=== PATIENT | female | born 1935 | race Caucasian/White ===

== ENCOUNTER → 2016-11-03 | Outpatient (CLI) | payer OTHER, MEDICARE ==
[~2016-11-03] MED LIST: AMLO-110 PO; APR50 PO; ASPEC81 PO; CARV12.52 PO; CEPH500C PO; CLC100 PO; CRG3125 PO; CRG625 PO; ERGO500037 PO; GFNSR600 PO; HYDR-4717 PO; HYDR25TA5 PO; HYDR50TA3 PO; LOSA1TAB38 PO; MRLP17X PO; NRV5 PO; POLY335019 PO; POTA10CA28 PO; POTA10TA33 PO; SIMV20TA2 PO; VLTG EXT; WARF5TAB7 PO; WARF5TAB90 PO; ZTHM250 PO
[2016-11-03 17:49] LABS: BLOOD UREA NITROGEN 18 mg/dl (7-18); BUN/CREATININE RATIO 19.8 (10-20); CALCIUM 8.6 mg/dl (8.5-10.1); CARBON DIOXIDE 28 mmol/L (21-32); CHLORIDE 104 mmol/L (98-107); CREATININE 0.89 mg/dl (0.60-1.20); GLUCOSE 98 mg/dl (70-99); POTASSIUM 3.9 mmol/L (3.5-5.1); SODIUM 141 mmol/L (136-145)
== END | disposition home or self-care (01) ==
LOC: C.LABPVFM 07:24
PROVIDERS: ATTEND Internal Medicine Cardiovascular Disease
DX: I10 Essential (primary) hypertension (principal)

== ENCOUNTER 2016-11-10 15:01 | Inpatient (IN) | payer OTHER, MEDICARE ==
[~2016-11-10] VITALS: Ht 162.6 cm; Wt 94.4 kg
[~2016-11-10 15:01] MED LIST changes: -AMLO-110 PO; -APR50 PO; -ASPEC81 PO; -CARV12.52 PO; -CEPH500C PO; -CRG3125 PO; -CRG625 PO; -ERGO500037 PO; -GFNSR600 PO; -HYDR25TA5 PO; -MRLP17X PO; -NRV5 PO; -POLY335019 PO; -POTA10TA33 PO; -WARF5TAB7 PO; -ZTHM250 PO
[2016-11-10] MEDS ORDERED: ASPIRIN 81 MG CHEW PO STA (17:27)
--- NOTE | 2016-11-10 17:38 | EMERGENCY ROOM VISIT NOTE ---
History First contact with patient: 17:27 Chief Complaint: CONGESTION Stated Complaint: COLD, TIGHT CHEST History of Present Illness The patient is a 81 year old female who presents to the Emergency Room with complaints of cough congestion and chest pain. She is accompanied by her daughter who also provides parts of the history. Patients symptoms started 2 days ago. She has been having a on/off dry cough. She has also had nasal congestion with discharge. Her most concerning symptom is chest pain. She notes a vague 2/10 discomfort centrally in her chest that radiates between the shoulder blades and into her left arm. The pain is not associated with exertion and she notes that it actually worsens when she is sitting quietly at rest. The pain is not positional. She has long-standing shortness of breath that has not changed recently. She denies feeling wheezy. She has not had fevers, chills or sweats. She has been urinating per baseline. She has ongoing issues with constipation but this has not changed recently. Her appetite has been poor for the past day. 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 She has HTN and hypercholesterolemia but denies any history of [place]. Review of Systems A 10 point review of systems was negative unless stated above. Past Medical/Surgical History Medical Problems: (1) Arthritis (2) Atrial fibrillation (3) Benign hypertension (4) Bronchitis (5) Dilation and curettage (6) Heart disease (7) Melanoma (8) Symptomatic bradycardia (9) Weakness Surgical Problems: (1) H/O lumpectomy (2) H/O: hysterectomy Family History Cancer Gallbladder disease Heart disease Hypertension Kidney disease Kidney stones Social History Smoking Status: Never Smoker Smokeless Tobacco Use: No Alcohol Use: none Drug Use: none Marital Status: Housing Status: lives with family (daughter) Occupation Status: retired Current/Historical Medications Scheduled Diclofenac Sod (Voltaren), 1 APPLN EXT QID Docusate Sodium (Docusate Sodium), 1 CAP PO BID Hydralazine Hcl (Apresoline), 50 MG PO TID Hydrochlorothiazide (Hctz), 25 MG PO QAM Losartan Potassium (Cozaar), 100 MG PO QAM Potassium Chloride (Micro-K Ext Rel), 10 MEQ PO NOON Simvastatin (Zocor), 20 MG PO QPM Warfarin Sodium (Coumadin), 5 MG PO HS Allergies Coded Allergies: Lisinopril (Verified Adverse Reaction, Intermediate, COUGH, 05/19/16) Oxycodone (Verified Adverse Reaction, Unknown, DIZZINESS Lightheaded, ) Physical Exam Vital Signs Date Time Temp Pulse Resp B/P Pulse Ox O2 Delivery O2 Flow Rate FiO2 11/10/16 16:50 65 11/10/16 16:46 96 Room Air 11/10/16 16:46 73 20 209/101 95 Room Air 11/10/16 15:07 93 Room Air 11/10/16 15:05 36.6 75 18 188/85 93 Room Air Physical Exam Constitutional: Vital signs as above were reviewed. Eyes: Pupils equal, round, and reactive to light. Extraocular muscles are intact. No proptosis. No photophobia. ENT: Mucous membranes are moist. Oropharynx is clear. No sinus tenderness. TMs are clear bilaterally. Cardiovascular: Heart with a regular rate and rhythm. Pulses are palpable and symmetric in all 4 extremities. No pedal edema appreciated. JVD 3 cm; accentuated with hepatojugular reflex Palpation of the chest reveals bilateral pectoral tenderness; this tenderness is different Respiratory: Lungs clear to auscultation bilaterally. No wheezes, rales, or rhonchi appreciated. No accessory muscle use. No retractions. No increased work of breathing. Bilateral expiratory wheezing GI: Abdomen soft, nontender, nondistended. Normal active bowel sounds. No abdominal hernias appreciated. No rebound. No guarding. : No CVA tenderness appreciated. Musculoskeletal: No midline cervical or vertebral tenderness. No gross deformities. No bony tenderness. No calf swelling or tenderness. Left calf tenderness, this is a baseline symptom Integumentary: Warm, dry, no rashes appreciated. Chronic lymphedema of the left arm Neurological: Patient awake, alert, and oriented x 3. Cranial nerves two through 12 grossly intact. Motor 5 out of 5 strength bilateral upper and lower extremities. Lymph: No cervical lymphadenopathy appreciated. Medical Decision & Procedures ER Provider Diagnostic Interpretation: [~ rep ct add3]] CHEST ONE VIEW PORTABLE CLINICAL HISTORY: chest pain, cough COMPARISON STUDY: 05/23/2016 FINDINGS: The heart remains enlarged. There are surgical clips within the left axillary region. There is a right subclavian single chamber central venous pacemaker present. There is no overt failure. There is no lobar consolidation. There are increased right basilar markings, likely atelectatic, although an mild inflammatory process could appear similar.[ IMPRESSION: 1. Cardiomegaly 2. No evidence of overt failure 3. Increased right basal markings, likely atelectatic although a mild inflammatory process could appear similar Electronically signed by: Abdon Cortés M.D. 11/10/2016 5:45 PM Dictated Date/Time: 11/10/2016 5:43 PM Laboratory Results 11/10/16 18:20 Red Blood Count 4.70, Mean Corpuscular Volume 88.9, Mean Corpuscular Hemoglobin 30.6, Mean Corpuscular Hemoglobin Concent 34.4, Mean Platelet Volume 10.8, Neutrophils (%) (Auto) 61.4, Lymphocytes (%) (Auto) 16.6, Monocytes (%) (Auto) 19.5, Eosinophils (%) (Auto) 1.8, Basophils (%) (Auto) 0.5, Neutrophils # (Auto ) 3.80, Lymphocytes # (Auto) 1.03, Monocytes # (Auto) 1.21, Eosinophils # (Auto ) 0.11, Basophils # (Auto) 0.03 Test 11/10/16 17:12 11/10/16 17:25 11/10/16 18:20 11/10/16 18:43 Creatine Kinase MB Ratio (0-3.0) Influenza Type A Antigen Neg for Influ A (NEG) Influenza Type B Antigen Neg for Influ B (NEG) White Blood Count 6.19 K/uL (4.8-10.8) Red Blood Count 4.70 M/uL (4.2-5.4) Hemoglobin 14.4 g/dL (12.0-16.0) Hematocrit 41.8 % (37-47) Mean Corpuscular Volume 88.9 fL (80-100) Mean Corpuscular Hemoglobin 30.6 pg (25-34) Mean Corpuscular Hemoglobin Concent 34.4 g/dl (32-36) Platelet Count 189 K/uL (130-400) Mean Platelet Volume 10.8 fL (7.4-10.4) Neutrophils (%) (Auto) 61.4 % Lymphocytes (%) (Auto) 16.6 % Monocytes (%) (Auto) 19.5 % Eosinophils (%) (Auto) 1.8 % Basophils (%) (Auto) 0.5 % Neutrophils # (Auto) 3.80 K/uL (1.4-6.5) Lymphocytes # (Auto) 1.03 K/uL (1.2-3.4) Monocytes # (Auto) 1.21 K/uL (0.11-0.59) Eosinophils # (Auto) 0.11 K/uL (0-0.5) Basophils # (Auto) 0.03 K/uL (0-0.2) RDW Standard Deviation 44.6 fL (36.4-46.3) RDW Coefficient of Variation 13.6 % (11.5-14.5) Immature Granulocyte % (Auto) 0.2 % Immature Granulocyte # (Auto) 0.01 K/uL (0.00-0.02) Medications Administered Medications (Trade) Dose Ordered Sig/Braulio Route Start Time Stop Time Status Last Admin Dose Admin Aspirin (Aspirin Chew) 324 mg NOW STAT PO 11/10/16 17:27 11/10/16 17:28 DC 11/10/16 18:15 324 MG Albuterol/ Ipratropium (Duoneb) 3 ml NOW STAT INH 11/10/16 18:03 11/10/16 18:04 DC 11/10/16 18:15 3 ML ECG Change: Undetermined rhythm ST & T wave abnormality, consider inferior ischemia ST & T wave abnormality, consider anterolateral ischemia Abnormal ECG When compared with ECG of 22-MAY-2016 16:30, Current undetermined rhythm precludes rhythm comparison, needs review ED Course 17:00 - Patient evaluated Orders; CBC, BMP, troponin, CK, CKMB, CXR 17:25 - EKG reviewed; new anterolateral T wave inversion noted ASA 324 chew PO orders 17:45 - Precepted case with Dr. Bruno 18:00 - Duoneb treatment ordered by Dr. Bruno 18:15 - CXR reviewed: possible new right basilar infiltrate 18:30 - Discussed case with Dr. Bruno - Decision to admit patient for further cardiac work-up 18:45 - Case discssed with Dr. Arias, who will admit patient for further evaluation Patient re-assessed; notes no pain currently Patient signed out to hospitalist service in stable condition Cardiac enzymes still pending. Medical Decision A thorough history was obtained, physical examination performed and the EMR was reviewed. The case was reviewed multiple times over with Dr. Timothy Bruno during the patient's ED visit. Patient presents with URI symptoms but also atypical anginal symptoms. She does have risk factors for coronary artery disease including hypertension and hypercholesterolemia. Differentials for chest pain include ACS, Pericarditis/myocarditis, costochondritis, PE, Pneumothorax, Pneumonia/Pleurisy, GERD, gastritis Review of the EKG did note anterolateral T wave inversions, which were absent on EKGs obtained 6 months ago. Though cardiac enzymes are still pending, she warrants admission for cardiac rule-out and serial cardiac enzyme monitoring. CXR was also reviewed showing possible development of infiltrate at right base, possibly suggestive of PNA. She does have marked bilateral wheezing on examination, fortunately without evidence of hypoxia. She was treated with one treatment of Duoneb. Patient requires admission. Case was discussed with the hospitalist service, who will admit the patient for further evaluation. Impression Primary Impression: Atypical angina Additional Impression: Pneumonia Departure Information Dispostion Being Evaluated By Hospitalist Condition GOOD Referrals No Doctor, Assigned (PCP) Patient Instructions On License Of [facility] Problem Qualifiers
--- NOTE | 2016-11-10 17:46 | DIAGNOSTIC IMAGING REPORT ---
CHEST ONE VIEW PORTABLE CLINICAL HISTORY: chest pain, cough COMPARISON STUDY: 05/23/2016 FINDINGS: The heart remains enlarged. There are surgical clips within the left axillary region. There is a right subclavian single chamber central venous pacemaker present. There is no overt failure. There is no lobar consolidation. There are increased right basilar markings, likely atelectatic, although an mild inflammatory process could appear similar.[ IMPRESSION: 1. Cardiomegaly 2. No evidence of overt failure 3. Increased right basal markings, likely atelectatic although a mild inflammatory process could appear similar Electronically signed by: Abdon Cortés M.D. 11/10/2016 5:45 PM Dictated Date/Time: 11/10/2016 5:43 PM
[2016-11-10] MEDS ORDERED: ALBUT/IPRATROP 3MG/0.5MG NEB 3 ML VIAL INH STA (18:03)
[2016-11-10 18:36] LABS: BASO % 0.5 %; BASO ABS # 0.03 K/uL (0-0.2); COMPLETE YES; EOS % 1.8 %; HEMATOCRIT 41.8 % (37-47); IG% 0.2 %; LYMPH % 16.6 %; LYMPH ABS # 1.03 K/uL (1.2-3.4); MEAN CELL VOLUME 88.9 fL (80-100); MEAN CORPUSCULAR HEMOGLOBIN 30.6 pg (25-34); MEAN CORPUSCULAR HGB CONC 34.4 g/dl (32-36); MEAN PLATELET VOLUME 10.8 fL (7.4-10.4); MONO % 19.5 %; NEUT % 61.4 %; PLATELET COUNT 189 K/uL (130-400); WHITE BLOOD COUNT 6.19 K/uL (4.8-10.8)
[2016-11-10] MEDS ORDERED: NITROGLYCERIN 0.4 MG SL PER TAB CHARGE SL PRN (19:00)
[2016-11-10] MEDS ORDERED: ONDANSETRON INJ 2 MG/ML 2 ML VIAL IV PRN (19:00)
[2016-11-10] MEDS ORDERED: ACETAMINOPHEN 325 MG TAB PO PRN (19:00)
[2016-11-10] MEDS ORDERED: CRG3125 PO (19:02)
[2016-11-10 19:39] LABS: ALT/SGPT 18 U/L (12-78); AST/SGOT 14 U/L (15-37); BLOOD UREA NITROGEN 13 mg/dl (7-18); BUN/CREATININE RATIO 16.5 (10-20); CALCIUM 8.7 mg/dl (8.5-10.1); CARBON DIOXIDE 24 mmol/L (21-32); CHLORIDE 102 mmol/L (98-107); CREATININE 0.77 mg/dl (0.60-1.20); GLUCOSE 95 mg/dl (70-99); SODIUM 137 mmol/L (136-145)
[2016-11-10 19:44] LABS: ALKALINE PHOSPHATASE 66 U/L (45-117); CKMB/CK RATIO 2.4 (0-3.0)
[2016-11-10 19:57] VITALS: O2SAT 95
[2016-11-10] MEDS ORDERED: HydrALAZINE HCL 20 MG/ML VIAL IV. PRN (20:00)
[2016-11-10 20:15] LABS: INR 2.7 (0.9-1.1); PARTIAL THROMBOPLASTIN RATIO 1.6; PROTHROMBIN TIME (PATIENT) 30.3 SECONDS (9.0-12.0)
[2016-11-10] MEDS ORDERED: OPTIRAY 320 IV PRN (20:15)
[2016-11-10] MEDS ORDERED: HYDR25TA5 PO (20:18)
[2016-11-10] MEDS ORDERED: WARF5TAB7 PO (20:18)
--- NOTE | 2016-11-10 20:29 | EMERGENCY ROOM VISIT NOTE ---
History Report prepared by Luli: Mindy Ross Under the Supervision of: Dr. Timothy Bruno M.D. First contact with patient: 16:39 Chief Complaint: CONGESTION Stated Complaint: COLD, TIGHT CHEST History of Present Illness The patient is a 81 year old female who presents to the Emergency Room with complaints of intermittent mid chest pain over the past month. She said that sometimes it feels heavy and other times it is an ache. It is typically a 2/10 in severity and radiates into her left arm and shoulder blades. She does not notice any increased pain with exertion. The patient also complains of some cold symptoms over the past 2 days including a nonproductive cough and nasal congestion. She has had a poor appetite. The patient has a history of hypercholesterolemia, hypertension, a-fib and tachy deysi syndrome. She had a pacemaker placed this past May. She does not have a history of a heart attack or emphysema. She has never been a smoker. Denies fever or other complaints. Source of History: patient Onset: a month ago Position: chest (mid chest) Symptom Intensity: 2/10 Quality: ache, other (heavy) Timing: intermittent Associated Symptoms: + cough, No fevers Note: Other symptoms: nasal congestion Review of Systems See HPI for pertinent positives & negatives. A total of 10 systems reviewed and were otherwise negative. Past Medical & Surgical Medical Problems: (1) Arthritis (2) Atrial fibrillation (3) Benign hypertension (4) Bronchitis (5) Cardiac ischemia (6) Dilation and curettage (7) Heart disease (8) Melanoma (9) Symptomatic bradycardia (10) Weakness Surgical Problems: (1) H/O lumpectomy (2) H/O: hysterectomy Family History Cancer Gallbladder disease Heart disease Hypertension Kidney disease Kidney stones Social History Smoking Status: Never Smoker Smokeless Tobacco Use: No Alcohol Use: none Drug Use: none Marital Status: Housing Status: lives with family (daughter) Occupation Status: retired Current/Historical Medications Scheduled Carvedilol (Carvedilol), 3.125 MG PO BID Docusate Sodium (Docusate Sodium), 1 CAP PO BID Hydrochlorothiazide (Hctz), 25 MG PO QAM Hydrochlorothiazide (Hydrochlorothiazide), 12.5 MG PO DAILY Losartan Potassium (Cozaar), 100 MG PO QAM Potassium Chloride (Micro-K Ext Rel), 10 MEQ PO NOON Simvastatin (Zocor), 20 MG PO QPM Warfarin Sod (Jantoven), 1.5 TAB PO DIRECTED Warfarin Sodium (Coumadin), 5 MG PO HS Allergies Coded Allergies: Lisinopril (Verified Adverse Reaction, Intermediate, COUGH, 11/10/16) Oxycodone (Verified Adverse Reaction, Unknown, DIZZINESS Lightheaded, 11/10/16) Physical Exam Vital Signs Date Time Temp Pulse Resp B/P Pulse Ox O2 Delivery O2 Flow Rate FiO2 11/10/16 19:57 75 20 186/102 95 Room Air 11/10/16 18:29 71 18 134/100 95 Room Air 11/10/16 16:50 65 11/10/16 16:46 96 Room Air 11/10/16 16:46 73 20 209/101 95 Room Air 11/10/16 15:07 93 Room Air 11/10/16 15:05 36.6 75 18 188/85 93 Room Air Physical Exam Constitutional: Vital signs reviewed. Eyes: Pupils are equal round reactive to light. Conjunctiva are noninjected. ENT: Pharynx is clear without erythema or exudate. Mucous membranes are moist. Neck supple without meningeal signs. Respiratory: Bilateral expiratory wheezing to auscultation bilaterally. Breath sounds are equal bilaterally. Cardiovascular: Regular rate and rhythm. No rubs or gallops. GI: Soft, nondistended and nontender. Bowel sounds are present. Musculoskeletal: No peripheral edema. No lower extremity tenderness. Sternal tenderness to palpation. Integumentary: No cyanosis. Neurological: The patient is awake and alert. No focal deficits. Psychiatric: Normal affect. Medical Decision & Procedures ER Provider Diagnostic Interpretation: Radiology results as stated below per my review and the radiologist's interpretation: CHEST ONE VIEW PORTABLE CLINICAL HISTORY: chest pain, cough COMPARISON STUDY: 05/23/2016 FINDINGS: The heart remains enlarged. There are surgical clips within the left axillary region. There is a right subclavian single chamber central venous pacemaker present. There is no overt failure. There is no lobar consolidation. There are increased right basilar markings, likely atelectatic, although an mild inflammatory process could appear similar.[ IMPRESSION: 1. Cardiomegaly 2. No evidence of overt failure 3. Increased right basal markings, likely atelectatic although a mild inflammatory process could appear similar Electronically signed by: Abdon Cortés M.D. 11/10/2016 5:45 PM Dictated Date/Time: 11/10/2016 5:43 PM Laboratory Results 11/10/16 18:20 Red Blood Count 4.70, Mean Corpuscular Volume 88.9, Mean Corpuscular Hemoglobin 30.6, Mean Corpuscular Hemoglobin Concent 34.4, Mean Platelet Volume 10.8, Neutrophils (%) (Auto) 61.4, Lymphocytes (%) (Auto) 16.6, Monocytes (%) (Auto) 19.5, Eosinophils (%) (Auto) 1.8, Basophils (%) (Auto) 0.5, Neutrophils # (Auto ) 3.80, Lymphocytes # (Auto) 1.03, Monocytes # (Auto) 1.21, Eosinophils # (Auto ) 0.11, Basophils # (Auto) 0.03 11/10/16 18:20 Test 11/10/16 17:25 11/10/16 18:20 11/10/16 19:52 Influenza Type A Antigen Neg for Influ A (NEG) Influenza Type B Antigen Neg for Influ B (NEG) White Blood Count 6.19 K/uL (4.8-10.8) Red Blood Count 4.70 M/uL (4.2-5.4) Hemoglobin 14.4 g/dL (12.0-16.0) Hematocrit 41.8 % (37-47) Mean Corpuscular Volume 88.9 fL (80-100) Mean Corpuscular Hemoglobin 30.6 pg (25-34) Mean Corpuscular Hemoglobin Concent 34.4 g/dl (32-36) Platelet Count 189 K/uL (130-400) Mean Platelet Volume 10.8 fL (7.4-10.4) Neutrophils (%) (Auto) 61.4 % Lymphocytes (%) (Auto) 16.6 % Monocytes (%) (Auto) 19.5 % Eosinophils (%) (Auto) 1.8 % Basophils (%) (Auto) 0.5 % Neutrophils # (Auto) 3.80 K/uL (1.4-6.5) Lymphocytes # (Auto) 1.03 K/uL (1.2-3.4) Monocytes # (Auto) 1.21 K/uL (0.11-0.59) Eosinophils # (Auto) 0.11 K/uL (0-0.5) Basophils # (Auto) 0.03 K/uL (0-0.2) RDW Standard Deviation 44.6 fL (36.4-46.3) RDW Coefficient of Variation 13.6 % (11.5-14.5) Immature Granulocyte % (Auto) 0.2 % Immature Granulocyte # (Auto) 0.01 K/uL (0.00-0.02) Anion Gap 11.0 mmol/L (3-11) Est Creatinine Clear Calc Drug Dose 64.9 ml/min Estimated GFR () 83.9 Estimated GFR (Non- 72.4 BUN/Creatinine Ratio 16.5 (10-20) Calcium Level 8.7 mg/dl (8.5-10.1) Total Bilirubin 0.6 mg/dl (0.2-1) Aspartate Amino Transf (AST/SGOT) 14 U/L (15-37) Alanine Aminotransferase (ALT/SGPT) 18 U/L (12-78) Alkaline Phosphatase 66 U/L (45-117) Total Creatine Kinase 33 U/L (26-192) Creatine Kinase MB 0.8 ng/ml (0.5-3.6) Creatine Kinase MB Ratio 2.4 (0-3.0) Troponin I < 0.015 ng/ml (0-0.045) Total Protein 6.9 gm/dl (6.4-8.2) Albumin 3.4 gm/dl (3.4-5.0) Globulin 3.5 gm/dl (2.5-4.0) Albumin/Globulin Ratio 1.0 (0.9-2) Prothrombin Time 30.3 SECONDS (9.0-12.0) Prothromb Time International Ratio 2.7 (0.9-1.1) Activated Partial Thromboplast Time 42.6 SECONDS (21.0-31.0) Partial Thromboplastin Ratio 1.6 Laboratory results as reviewed by me. Medications Administered Medications (Trade) Dose Ordered Sig/Braulio Route Start Time Stop Time Status Last Admin Dose Admin Aspirin (Aspirin Chew) 324 mg NOW STAT PO 11/10/16 17:27 11/10/16 17:28 DC 11/10/16 18:15 324 MG Albuterol/ Ipratropium (Duoneb) 3 ml NOW STAT INH 11/10/16 18:03 11/10/16 18:04 DC 11/10/16 18:15 3 ML ECG Indication: chest pain Rate (beats per minute): 70 Rhythm: atrial fibrillation, other (occasional paced complexes) Findings: T-wave inversion (V3-V6, inferior) Comparison ECG Date: May 2016 Change: changes are new ED Course 1727: Aspirin 324 mg PO was ordered. 175: The patient was evaluated in room A11. A complete history and physical exam was performed. 180: DuoNeb 3 ML INH was ordered. 183: The patient was reevaluated and test results were discussed. The patient was agreeable to the plan. 1846: The case was discussed with Dr. Juana QUINTANILLA Hospitalist. The patient will be evaluated for further management. Medical Decision This is an 81-year-old female who presents with chest pain and cold symptoms. Differential diagnosis includes unstable angina, SD, pleurisy, pneumonia, pericarditis. I did perform a limited focused review of portions of the patient 's old chart on the electronic medical record. The patient has had no recent pertinent visits to this hospital. I did evaluate the patient as noted above. The patient is presenting with chest pain and she has developed some cold symptoms over the past 2 days. IV access was established. The patient was placed on a continuous monitor and storage bin tender. I did personally review the patient's 12-lead EKG and chest x-ray as described above. Her twelve-lead EKG is concerning for T-wave inversions as described above. These were not present on her prior EKG. She is currently not having any active chest pain. Her chest x-ray does not show any signs of pneumonia. I did review the patient's blood work as noted in the electronic medical record. Troponin is negative. She is wheezing on examination and was given a DuoNeb. The test results were discussed with the patient. She was given aspirin. Osculation was recommended due to her chest pain and abnormal EKG. The case was discussed with the hospitalist and adult protective caseworker. Resident Physician Supervision Note: I did evaluate and examine this patient myself. I did guide management for the patient. I agree with the resident's (Dr. Jurado) assessment as discussed. Please see the resident's dictation for further details. Consults Time Called: 1839 Consulting Physician: Dr. Juana QUINTANILLA Hospitalist Returned Call: [phone] The case was discussed with him. The patient will be evaluated for further management. Impression Primary Impression: Acute chest pain Additional Impressions: Bronchitis Reactive airway disease Scribe Attestation The scribe's documentation has been prepared under my direct and personally reviewed by me in its entirety. I confirm that the note above accurately reflects all work, treatment, procedures, and medical decision making performed by me. Departure Information Dispostion Being Evaluated By Hospitalist Referrals No Doctor, Assigned (PCP) Patient Instructions My [facility] Problem Qualifiers
[2016-11-10 20:35] VITALS: BP 197/73; PULSE 74; TEMP 36.5; O2SAT 95; Ht 162.6 cm; Wt 94.4 kg
[2016-11-10] MEDS: DICLOFENAC SOD 1% GEL 100 GM TUBE EXT SCH (21:00)
--- NOTE | 2016-11-10 21:12 | HISTORY & PHYSICAL EXAMINATION ---
DATE OF ADMISSION: 11/10/2016 CHIEF COMPLAINT: Back pain/chest pain. HISTORY OF PRESENT ILLNESS: This is an 81-year-old female who presents to Emergency Room complaining of chest pain associated with back pain over the last month. She describes this pain as heavy and sometimes is achy, 2/10 in severity and radiates to her left arm and shoulder blades. She does not notice any increased pain with exertion. She did have some cold-like symptoms in the last 2 days and nonproductive cough with nasal congestion and she complains of poor appetite. She had a stress echo done in 2009, it showed some lateral changes. She had echo done last time, showed an ejection fraction of 60%. She has a history of tachybrady syndrome, AFib, and had a pacemaker placed in 2016. She says that she was compliant with home medicines and did not have any change in her medicines. REVIEW OF SYSTEMS: Negative except as above. Ten out of 14 systems were reviewed. PAST MEDICAL HISTORY: AFib, hypertension, bronchitis, heart disease, melanoma, symptomatic bradycardia, weakness, lumpectomy, hysterectomy, tachybrady syndrome, status post pacemaker placement in 2016. Previous stress echo back in 2009, showing lateral ischemia changes on her stress test. FAMILY HISTORY: Significant for heart disease, kidney disease. SOCIAL HISTORY: Does not smoke, does not drink. Does not use drugs. CURRENT MEDICATIONS: Diclofenac 1 application externally q.i.d., docusate 1 capsule p.o. b.i.d., hydralazine 50 mg p.o. t.i.d., hydralazine 25 mg p.o. daily, losartan 100 mg p.o. daily, potassium 10 mEq p.o. daily, simvastatin 20 mg p.o. daily, Coumadin 5 mg p.o. daily. ALLERGIES: LISINOPRIL, OXYCODONE. PHYSICAL EXAMINATION: VITAL SIGNS: Temperature 36.6, pulse 71, respirations 18. Blood pressure left arm 209/101, then repeat on the right arm 134/100. Pulse ox 95% on room air. GENERAL: Not in acute distress. HEENT: Normocephalic, atraumatic. PERRLA, EOMI. Mouth moist, no lesions. NECK: No JVD. Trachea midline. Thyroid is not enlarged. LUNGS: Expiratory wheezing bilaterally. CARDIOVASCULAR: Regular rate and rhythm. No gallops. GASTROINTESTINAL: Soft, nontender, nondistended. Bowel sounds present bilateral. No organomegaly. EXTREMITIES: No clubbing, cyanosis, edema. No CVA tenderness. SKIN: No rash, no jaundice. NEUROLOGICAL: Alert, oriented x3. Motor sensory normal. PSYCHIATRIC: Mood and judgment are normal. LABORATORY DATA: CBC normal except for absolute lymphocyte count 1.0 and monocyte 1.1. Chemistry normal. Cardiac enzymes, troponin less than 0.015. Albumin 3.4, creatinine was 0.7. INR, PTT pending. Influenza type A and B negative on admission. Blood cultures are pending. Chest x-ray showed cardiomegaly, no evidence of overt failure. Increased right basilar markings, likely atelectasis; however, mild inflammatory process could appear similar. EKG interpretation is 70 beats per minute, atrial fibrillation with occasional paced complexes, T-wave inversions in V3 and V6, new compared to May 2016 EKG. ASSESSMENT AND PLAN: An 81-year-old female who comes with chest pain, back pain radiating to her left arm. 1. Chest pain, rule out acute coronary syndrome, aortic dissection, musculoskeletal pain. The patient has new T-wave inversions in leads V3- V6. Admit to telemetry. Consult cardiology. Keep patient n.p.o. PM for further cardiac evaluation. Check echo, check CT chest angiography to rule out aortic dissection. Awaiting for INR results. If subtherapeutic, may need to be started on heparin IV. We will check repeat INR tomorrow morning. 2. History of atrial fibrillation. Continue on oral Coumadin right now. Check INR. 3. History of hypertension and hyperlipidemia. Continue with hydralazine, hydrochlorothiazide, and simvastatin. Also start hydralazine IV p.r.n. blood pressure above 150 mmhg. Repeat blood pressure in both arms now. 4. DVT prophylaxis. The patient on Coumadin. The patient is a full code. Time spent on doing this admission is 50 minutes. MAGNUSD
[2016-11-10] MEDS: WARFARIN SOD 5 MG TAB PO SCH (21:24)
[2016-11-10] MEDS: DOCUSATE SODIUM 100 MG CAP PO SCH (21:25)
[2016-11-10] MEDS: SIMVASTATIN 20 MG TAB PO SCH (21:26)
[2016-11-10] MEDS: CARVEDILOL 3.125 MG TAB PO SCH (21:26)
[2016-11-10] MEDS ORDERED: CLONIDINE HCL 0.1 MG TAB PO STA (22:55)
[2016-11-10 23:03] VITALS: BP 148/71; PULSE 97; TEMP 36.5; O2SAT 94
[2016-11-11 02:57] LABS: BASO % 0.8 %; BASO ABS # 0.03 K/uL (0-0.2); COMPLETE YES; EOS % 2.6 %; HEMATOCRIT 40.7 % (37-47); LYMPH % 26.2 %; MEAN CORPUSCULAR HEMOGLOBIN 30.5 pg (25-34); MEAN CORPUSCULAR HGB CONC 33.9 g/dl (32-36); MEAN PLATELET VOLUME 10.8 fL (7.4-10.4); NEUT % 49.4 %; PLATELET COUNT 168 K/uL (130-400); RED BLOOD COUNT 4.52 M/uL (4.2-5.4); WHITE BLOOD COUNT 3.81 K/uL (4.8-10.8)
[2016-11-11 03:02] LABS: INR 2.6 (0.9-1.1); PROTHROMBIN TIME (PATIENT) 28.8 SECONDS (9.0-12.0)
[2016-11-11 03:14] LABS: BLOOD UREA NITROGEN 13 mg/dl (7-18); BUN/CREATININE RATIO 17.3 (10-20); CALCIUM 8.6 mg/dl (8.5-10.1); CARBON DIOXIDE 25 mmol/L (21-32); CHLORIDE 103 mmol/L (98-107); CREATININE 0.75 mg/dl (0.60-1.20); GLUCOSE 95 mg/dl (70-99); POTASSIUM 3.6 mmol/L (3.5-5.1); SODIUM 139 mmol/L (136-145)
[2016-11-11 03:45] VITALS: BP 129/72; PULSE 60; TEMP 36.6; O2SAT 94
--- NOTE | 2016-11-11 07:47 | Progress Note ---
Subjective Date of Service: Nov 11, 2016. 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 Will have Echo Problem List Medical Problems: (1) Acute chest pain Status: Acute (2) Anticoagulated on Coumadin Status: Acute (3) Atypical angina Status: Acute (4) Elevated lactic acid level Status: Acute (5) Nausea Status: Acute (6) Pneumonia Status: Acute (7) Reactive airway disease Status: Acute (8) Vaginal bleeding Status: Acute Social History Problems: (1) S/P D&C (status post dilation and curettage) Status: Acute Review of Systems Constitutional: + weakness, No chills, No fever Respiratory: + cough, + sputum, No dyspnea at rest, No dyspnea on exertion, No shortness of breath Cardiac: + chest pain (reproduceable), No edema Abdomen: No nausea, No pain Female : No dysuria, No urinary frequency Objective Vital Signs Date Time Temp Pulse Resp B/P Pulse Ox O2 Delivery O2 Flow Rate FiO2 11/11/16 04:00 Room Air 11/11/16 03:45 36.6 60 22 129/72 94 Room Air 11/11/16 00:00 Room Air 11/10/16 23:03 36.5 97 18 148/71 94 Room Air 11/10/16 20:35 36.5 74 18 197/73 Room Air 11/10/16 20:35 36.5 74 18 197/73 95 Room Air 11/10/16 19:57 75 20 186/102 95 Room Air 11/10/16 18:29 71 18 134/100 95 Room Air 11/10/16 16:50 65 11/10/16 16:46 96 Room Air 11/10/16 16:46 73 20 209/101 95 Room Air 11/10/16 15:07 93 Room Air 11/10/16 15:05 36.6 75 18 188/85 93 Room Air Physical Exam General Appearance: WD/WN, + mild distress Neck: supple, no JVD Respiratory/Chest: + rhonchi, + pertinent finding (tender on left lateral axiallary ribs to palpation) Cardiovascular: regular rate, rhythm, no murmur Abdomen: normal bowel sounds, non tender, soft Extremities: no pedal edema, no calf tenderness Neurologic/Psychiatric: alert, oriented x 3 Laboratory Results Last 24 Hours Test 11/10/16 17:25 11/10/16 18:20 11/10/16 19:52 11/11/16 02:30 Influenza Type A Antigen Neg for Influ A Influenza Type B Antigen Neg for Influ B White Blood Count 6.19 K/uL 3.81 K/uL Red Blood Count 4.70 M/uL 4.52 M/uL Hemoglobin 14.4 g/dL 13.8 g/dL Hematocrit 41.8 % 40.7 % Mean Corpuscular Volume 88.9 fL 90.0 fL Mean Corpuscular Hemoglobin 30.6 pg 30.5 pg Mean Corpuscular Hemoglobin Concent 34.4 g/dl 33.9 g/dl Platelet Count 189 K/uL 168 K/uL Mean Platelet Volume 10.8 fL 10.8 fL Neutrophils (%) (Auto) 61.4 % 49.4 % Lymphocytes (%) (Auto) 16.6 % 26.2 % Monocytes (%) (Auto) 19.5 % 21.0 % Eosinophils (%) (Auto) 1.8 % 2.6 % Basophils (%) (Auto) 0.5 % 0.8 % Neutrophils # (Auto) 3.80 K/uL 1.88 K/uL Lymphocytes # (Auto) 1.03 K/uL 1.00 K/uL Monocytes # (Auto) 1.21 K/uL 0.80 K/uL Eosinophils # (Auto) 0.11 K/uL 0.10 K/uL Basophils # (Auto) 0.03 K/uL 0.03 K/uL RDW Standard Deviation 44.6 fL 45.4 fL RDW Coefficient of Variation 13.6 % 13.7 % Immature Granulocyte % (Auto) 0.2 % 0.0 % Immature Granulocyte # (Auto) 0.01 K/uL 0.00 K/uL Sodium Level 137 mmol/L 139 mmol/L Potassium Level 4.0 mmol/L 3.6 mmol/L Chloride Level 102 mmol/L 103 mmol/L Carbon Dioxide Level 24 mmol/L 25 mmol/L Anion Gap 11.0 mmol/L 11.0 mmol/L Blood Urea Nitrogen 13 mg/dl 13 mg/dl Creatinine 0.77 mg/dl 0.75 mg/dl Est Creatinine Clear Calc Drug Dose 64.9 ml/min 65.8 ml/min Estimated GFR () 83.9 86.6 Estimated GFR (Non- 72.4 74.8 BUN/Creatinine Ratio 16.5 17.3 Random Glucose 95 mg/dl 95 mg/dl Calcium Level 8.7 mg/dl 8.6 mg/dl Total Bilirubin 0.6 mg/dl Aspartate Amino Transf (AST/SGOT) 14 U/L Alanine Aminotransferase (ALT/SGPT) 18 U/L Alkaline Phosphatase 66 U/L Total Creatine Kinase 33 U/L Creatine Kinase MB 0.8 ng/ml 0.9 ng/ml Creatine Kinase MB Ratio 2.4 Troponin I < 0.015 ng/ml < 0.015 ng/ml Total Protein 6.9 gm/dl Albumin 3.4 gm/dl Globulin 3.5 gm/dl Albumin/Globulin Ratio 1.0 Prothrombin Time 30.3 SECONDS 28.8 SECONDS Prothromb Time International Ratio 2.7 2.6 Activated Partial Thromboplast Time 42.6 SECONDS Partial Thromboplastin Ratio 1.6 Assessment and Plan 81-F with Chest pain, new lateral ECG changes but negative Troponins Chest pain, no significant troponin elevation so will rule out acute coronary syndrome, Dispatcher Relay with cardiology feels ECG changes are fusion beats confused by pacemaker, pacemaker adjustment performed. Is anticoagulated with Coumadin for Afib, continues aspirin, increase coreg and zocor bronchitis, sputum specimen and azithromycin po for htn additionally uses cozaar hctz Coumadin restart Recent URI symptoms, no infiltrate on CXR and negative Influenza
[2016-11-11 07:57] VITALS: BP 150/81; PULSE 66; TEMP 36.6; O2SAT 97
[2016-11-11] MEDS: DOCUSATE SODIUM 100 MG CAP PO SCH ×2 (08:08→20:55)
[2016-11-11] MEDS: CARVEDILOL 3.125 MG TAB PO SCH (08:08)
[2016-11-11] MEDS: POTASSIUM CHLORIDE 10 MEQ TABCR PO SCH (08:08)
[2016-11-11] MEDS: HYDROCHLOROTHIAZIDE 50 MG TAB PO SCH (08:09)
[2016-11-11] MEDS: LOSARTAN POTASSIUM 50 MG TAB PO SCH (08:09)
[2016-11-11] MEDS: ASPIRIN 81 MG ECTAB PO SCH (08:09)
[2016-11-11] MEDS: DICLOFENAC SOD 1% GEL 100 GM TUBE EXT SCH ×4 (08:24→20:55)
[2016-11-11] MEDS ORDERED: ASPIRIN 81 MG CHEW PO SCH (09:00)
--- NOTE | 2016-11-11 09:59 | Cardiology Consultation ---
Cardiology Consultation Date of Consultation: Nov 11, 2016 Requesting Physician: [place] Attending [employer] Sergeant: Henri History of Present Illness Cardiology Consultation Requesting Provider: Dr. Arias Supervising [employer] Police Sergeant: Dr. Álvarez Type of Supervision: Shared. History of Present Illness: Ms. Tobin is a pleasant 81 year old female who is being seen at the request of Dr. Arias. Reason(s) for consultation include new anterolateral T wave inversion. Ms. Tobin notes developing a cold approximately three days ago. Sick contacts include her daughter who works at a LTAC facility in [place] with pneumonia. The patient notes cough, head and chest congestion, decreased appetite. She also notes chest discomfort, described below, but presented on 11/10/2016 secondary to the URI. The patient describes substernal chest discomfort that precedes the URI by months. The discomfort is described as a heaviness that occurs without rhyme or reason, lasting for variable periods of time. Symptoms are not aggravated by activity. She notes not aggravating or alleviating factors. She notes that sometimes she will have back pain and left arm but but denies associated symptoms such as dyspnea, diaphoresis, nausea, or vomiting. She notes chronic back pain, osteoarthritis, chronic knee pain, chronic leg pain. Again, no exertional chest pain. No pleuritic chest pain. No palpitations. No orthopnea, PND, or increased fluid retention. No near syncope or true syncope. Rare mild epistaxis. No hemoptysis. No melena, hematochezia, or hematuria. No dysuria. EKG on presentation to the [facility] shows atrial fibrillation with ventricular paced beats, pseudofusion beats, fusion beats, and [place] beats with T wave inversion inferiorly and laterally. Cardiac enzymes are negative times two. Chest x-ray reveals cardiomegaly without evidence of overt failure. Increased right basal markings noted, likely atelectatic although a mild inflammatory process could appear similar per radiological interpretation. Telemetry reveals her chronic atrial fibrillation with a controlled ventricular response, ventricular pacing, and pseudofusion and fusion beats. No ventricular arrhythmias observed. History Past Medical/Surgical History: Chronic atrial fibrillation CHADS2 Score of 2 out of 6, chronic Coumadin anticoagulation. Tachy-Bran Syndrome status post single chamber pacemaker [place] [address] Cage without complication. [employer] SR MRI SureScan, Model #A3SR01, Serial #[id number]. The RV lead is a [employer], Model #5076, Serial #[id number] and is a bipolar active fixation steroid-tipped MRI compatible lead. Hypertension Hyperlipidemia Malignant melanoma, left arm Uterine cancer status post January 2016 hysterectomy Obesity Osteoarthritis Diverticulosis Three colonic polyps removed December 26, 2014 Breast Biopsy. Umbilical hernia repair. Status post D&C. Bilateral cataract extractions. Family History: Mother at 82 with unknown problems. Father in his 70' with a possible IN. Patient has three brothers, one with known ASCVD s/p CABG. Social History: Nonsmoker. No alcohol. . Living with her daughter. Enjoys anything that involves a needle - sewing, crocheting, etc. Review Of Systems Complete Review of Systems: Intermittent insomnia. Chronic flatulence. Diffuse arthritis. Chronic back pain. Chronic constipation. See above. Otherwise, negative or noncontributory. Allergies Coded Allergies: Lisinopril (Verified Adverse Reaction, Intermediate, COUGH, 11/10/16) Oxycodone (Verified Adverse Reaction, Unknown, DIZZINESS Lightheaded, 11/10/16) Medications Reported Home Medications Medications Dose Route/Sig Max Daily Dose Days Date Category Dose Instructions Jantoven (Warfarin Sodium) 5 Mg Tab 1.5 Tab PO DIRECTED 11/10/16 Reported TAKE 1.5 TABLETS EVERY Thursday. Hydrochlorothiazide 25 Mg Tab 12.5 Mg PO DAILY 11/10/16 Reported Carvedilol 3.125 Mg Tab 3.125 Mg PO BID 11/10/16 Reported Micro-K Ext Rel (Potassium Chloride) 10 Meq Capcr 10 Meq PO NOON 08/06/15 Reported Docusate Sodium 100 Mg Cap 1 Cap PO BID 12/21/14 Reported Hctz (Hydrochlorothiazide) 50 Mg Tab 25 Mg PO QAM 12/21/14 Reported Cozaar (Losartan Potassium) 100 Mg Tab 100 Mg PO QAM 12/21/14 Reported Zocor (Simvastatin) 20 Mg Tab 20 Mg PO QPM 04/17/13 Reported Coumadin (Warfarin Sodium) 5 Mg Tab 5 Mg PO HS 02/10/12 Reported TAKE 5 MG EVERYDAY EXCEPT Thursday Physical Exam Vital Signs (Last 8hrs): Last 8 Hrs Date Time Temp Pulse Resp B/P Pulse Ox O2 Delivery O2 Flow Rate FiO2 11/11/16 08:00 Room Air 11/11/16 07:57 36.6 66 18 150/81 97 11/11/16 04:00 Room Air 11/11/16 03:45 36.6 60 22 129/72 94 Room Air General: Obese. NAD. Skin: Marked lymphedematous changes of the left arm noted with moderate diffuse lymphedematous changes elsewhere. HEENT: Normocephalic. PER. Conjunctiva pink, sclera clear. Neck: Right carotid bruit. No overt JVD. Heart: Irregularly irregular at 70 bpm. Soft systolic ejection murmur. No diastolic murmur. Lungs: Clear to auscultation. Abdomen: Obese. +BS. Soft. Nontender. No hepatosplenomegaly. Extremities: Mild edema with chronic lymphedematous changes. No clubbing. No cyanosis Psych: Normal affect Neuro: No focal deficits. Data Last 24 Hours Test 11/10/16 17:25 11/10/16 18:20 11/10/16 19:52 11/11/16 02:30 Influenza Type A Antigen Neg for Influ A Influenza Type B Antigen Neg for Influ B White Blood Count 6.19 K/uL 3.81 K/uL Red Blood Count 4.70 M/uL 4.52 M/uL Hemoglobin 14.4 g/dL 13.8 g/dL Hematocrit 41.8 % 40.7 % Mean Corpuscular Volume 88.9 fL 90.0 fL Mean Corpuscular Hemoglobin 30.6 pg 30.5 pg Mean Corpuscular Hemoglobin Concent 34.4 g/dl 33.9 g/dl Platelet Count 189 K/uL 168 K/uL Mean Platelet Volume 10.8 fL 10.8 fL Neutrophils (%) (Auto) 61.4 % 49.4 % Lymphocytes (%) (Auto) 16.6 % 26.2 % Monocytes (%) (Auto) 19.5 % 21.0 % Eosinophils (%) (Auto) 1.8 % 2.6 % Basophils (%) (Auto) 0.5 % 0.8 % Neutrophils # (Auto) 3.80 K/uL 1.88 K/uL Lymphocytes # (Auto) 1.03 K/uL 1.00 K/uL Monocytes # (Auto) 1.21 K/uL 0.80 K/uL Eosinophils # (Auto) 0.11 K/uL 0.10 K/uL Basophils # (Auto) 0.03 K/uL 0.03 K/uL RDW Standard Deviation 44.6 fL 45.4 fL RDW Coefficient of Variation 13.6 % 13.7 % Immature Granulocyte % (Auto) 0.2 % 0.0 % Immature Granulocyte # (Auto) 0.01 K/uL 0.00 K/uL Sodium Level 137 mmol/L 139 mmol/L Potassium Level 4.0 mmol/L 3.6 mmol/L Chloride Level 102 mmol/L 103 mmol/L Carbon Dioxide Level 24 mmol/L 25 mmol/L Anion Gap 11.0 mmol/L 11.0 mmol/L Blood Urea Nitrogen 13 mg/dl 13 mg/dl Creatinine 0.77 mg/dl 0.75 mg/dl Est Creatinine Clear Calc Drug Dose 64.9 ml/min 65.8 ml/min Estimated GFR () 83.9 86.6 Estimated GFR (Non- 72.4 74.8 BUN/Creatinine Ratio 16.5 17.3 Random Glucose 95 mg/dl 95 mg/dl Calcium Level 8.7 mg/dl 8.6 mg/dl Total Bilirubin 0.6 mg/dl Aspartate Amino Transf (AST/SGOT) 14 U/L Alanine Aminotransferase (ALT/SGPT) 18 U/L Alkaline Phosphatase 66 U/L Total Creatine Kinase 33 U/L Creatine Kinase MB 0.8 ng/ml 0.9 ng/ml Creatine Kinase MB Ratio 2.4 Troponin I < 0.015 ng/ml < 0.015 ng/ml Total Protein 6.9 gm/dl Albumin 3.4 gm/dl Globulin 3.5 gm/dl Albumin/Globulin Ratio 1.0 Prothrombin Time 30.3 SECONDS 28.8 SECONDS Prothromb Time International Ratio 2.7 2.6 Activated Partial Thromboplast Time 42.6 SECONDS Partial Thromboplastin Ratio 1.6 See above. Echo pending. Assessment & Plan Presentation secondary to URI symptoms, as described above. Treatment as per the Hospitalist Service. New inferolateral T wave changes. Chronic atypical chest pain. Cardiac enzymes negative x 2. Await resting echocardiogram interpretation Outpatient Lexiscan nuclear stress testing as long as her enzymes are negative and the echo is OK. Note: Patient unable to ambulate for HASMUKH, pacer, past marked hypertensive BP response to dobutamine infusion. Continue beta-mis, ASA and statin Chronic atrial fibrillation. Continue rate control and chronic Coumadin anticoagulation Tachy-Bran Syndrome status post single chamber pacemaker implantation on [address] Cage without complication. Device interrogated and reprogrammed today. Lower rate increased to 70 bpm with resolution of the pseudofusion and fusion beats. Hypertension. Increase Coreg for additional BP control. Continue other outpatient medications as prescribed. Dyslipidemia. Continue statin.
[2016-11-11] MEDS ORDERED: AZITHROMYCIN 250 MG TAB PO ONE (12:00)
[2016-11-11 12:01] VITALS: BP 142/79; PULSE 70; TEMP 36.9; O2SAT 95
[2016-11-11] MEDS ORDERED: PERFLUTREN LIPID MICROSPHERE (DEFINITY) IV ONE (15:11)
[2016-11-11 15:44] VITALS: BP 145/72; PULSE 96; TEMP 36.8; O2SAT 96
[2016-11-11] MEDS: WARFARIN SOD 5 MG TAB PO SCH (16:00)
[2016-11-11 19:52] VITALS: BP 149/78; PULSE 71; TEMP 37.1; O2SAT 93
[2016-11-11] MEDS ORDERED: COUGH DROP (SUGAR FREE) LOZ 24 LOZ/1 BOX ONE (20:53)
[2016-11-11] MEDS: SIMVASTATIN 20 MG TAB PO SCH (20:55)
[2016-11-11] MEDS: CARVEDILOL 6.25 MG TAB PO SCH (20:57)
[2016-11-11] MEDS ORDERED: NURSING DECISION MEDICATION ORDER SCH (21:15)
[2016-11-11] MEDS ORDERED: COUGH DROP (SUGAR FREE) LOZ 24 LOZ/1 BOX PO PRN (21:15)
[2016-11-11 23:54] VITALS: BP 155/79; PULSE 73; TEMP 37.2; O2SAT 92
[2016-11-12 03:38] VITALS: BP 144/73; PULSE 75; TEMP 36.7; O2SAT 93
[2016-11-12] MEDS: DOCUSATE SODIUM 100 MG CAP PO SCH (08:01)
[2016-11-12] MEDS: ASPIRIN 81 MG ECTAB PO SCH (08:01)
[2016-11-12] MEDS: CARVEDILOL 6.25 MG TAB PO SCH (08:01)
[2016-11-12] MEDS: HYDROCHLOROTHIAZIDE 50 MG TAB PO SCH (08:02)
[2016-11-12] MEDS: LOSARTAN POTASSIUM 50 MG TAB PO SCH (08:02)
[2016-11-12] MEDS: POTASSIUM CHLORIDE 10 MEQ TABCR PO SCH (08:03)
[2016-11-12 08:04] VITALS: BP 119/66; PULSE 75; TEMP 37; O2SAT 95
[2016-11-12] MEDS: DICLOFENAC SOD 1% GEL 100 GM TUBE EXT SCH (08:04)
--- NOTE | 2016-11-12 08:32 | ECHOCARDIOGRAM REPORT ---
*NOTICE TO RECEIVING LIBERTARIAN AGENCY This information is strictly Confidential and protected under [place] law. [place] law prohibits you from making any further disclosure of this information unless further disclosure is expressly permitted by the written consent of the person to whom it pertains or is authorized by law. A general authorization for the release of medical or other information is not sufficient for this purpose. Hospital accepts no responsibility if the information is made available to any other person, INCLUDING THE PATIENT. Interpretation Summary * Name: RADHA SKINNER Study Date: 11/11/2016 03:38 PM BP: 129/72 mmHg * Patient Location: [facility] HR: 60 * : 1935 (M/d/yyyy) Gender: Female Height: 64 in * Age: 81 yrs Ethnicity: CA Weight: 214 lb * Ordering Physician: Gabe Arias * Referring Physician: Self, Referred * Performed By: Irene Dyer RCS * * Reason For Study: Chest Pain * BSA: 2.0 m2 * Grossly normal valvular structure and function. * -- Conclusions -- * There is mild concentric left ventricular hypertrophy. * The left ventricular wall motion is normal. * Ejection Fraction = 60-65%. * The right ventricular systolic function is normal. * The left atrium is moderately dilated. * The right atrium is mild to moderately dilated. * Grossly normal valvular structure and function. Procedure Details * A complete two-dimensional transthoracic echocardiogram was performed (2D, M-mode, Doppler and color flow Doppler). * Definity was attempted but IV wasn't working Left Ventricle * The left ventricle is normal in size. * There is mild concentric left ventricular hypertrophy. * Ejection Fraction = 60-65%. * The left ventricular wall motion is normal. Right Ventricle * The right ventricle is normal size. * The right ventricular systolic function is normal. Atria * The left atrium is moderately dilated. * The right atrium is mild to moderately dilated. * The interatrial septum is intact with no evidence for an atrial septal defect. Mitral Valve * The mitral valve is grossly normal. * There is mild mitral regurgitation. Tricuspid Valve * The tricuspid valve is not well visualized. * Significant tricuspid regurgitation is absent. Aortic Valve * The aortic valve is trileaflet. * No hemodynamically significant valvular aortic stenosis. * There is no significant aortic regurgitation. Pulmonic Valve * The pulmonic valve is not well visualized. Great Vessels * The aortic root and proximal ascending aorta are normal sized. Pericardium/Pleural * The pericardium appears normal. * Small pericardial effusion. MMode 2D Measurements and Calculations IVSd 1.1 cm IVSs 1.4 cm LVIDd 5.4 cm LVIDs 3.6 cm LVPWd 1.0 cm LVPWs 1.5 cm IVS/LVPW 1.0 FS 33.3 % EDV(Teich) 143.2 ml ESV(Teich) 55.2 ml EF(Teich) 61.4 % EDV(cubed) 160.2 ml ESV(cubed) 47.5 ml EF(cubed) 70.3 % % IVS thick 30.3 % % LVPW thick 46.0 % LV mass(C)d 226.8 grams LV mass(C)dI 112.6 grams/m\S\2 LV mass(C)s 195.8 grams LV mass(C)sI 97.3 grams/m\S\2 SV(Teich) 88.0 ml SI(Teich) 43.7 ml/m\S\2 SV(cubed) 112.7 ml SI(cubed) 56.0 ml/m\S\2 Ao root diam 3.5 cm Ao root area 9.5 cm\S\2 ACS 1.7 cm LA dimension 5.2 cm LA/Ao 1.5 LVAd ap4 23.2 cm\S\2 LVLd ap4 7.4 cm EDV(MOD-sp4) 59.8 ml EDV(sp4-el) 61.5 ml LVAs ap4 14.6 cm\S\2 LVLs ap4 6.5 cm ESV(MOD-sp4) 28.1 ml ESV(sp4-el) 27.8 ml EF(MOD-sp4) 53.0 % EF(sp4-el) 54.8 % LVAd ap2 27.5 cm\S\2 LVLd ap2 7.6 cm EDV(MOD-sp2) 81.3 ml EDV(sp2-el) 84.2 ml LVAs ap2 19.3 cm\S\2 LVLs ap2 7.3 cm ESV(MOD-sp2) 41.6 ml ESV(sp2-el) 43.3 ml EF(MOD-sp2) 48.9 % EF(sp2-el) 48.6 % LVLd %diff 2.3 % EDV(MOD-bp) 69.8 ml LVLs %diff 11.4 % ESV(MOD-bp) 36.7 ml EF(MOD-bp) 47.4 % SV(MOD-sp4) 31.7 ml SI(MOD-sp4) 15.7 ml/m\S\2 SV(MOD-sp2) 39.8 ml SI(MOD-sp2) 19.8 ml/m\S\2 SV(MOD-bp) 33.1 ml SI(MOD-bp) 16.4 ml/m\S\2 SV(sp4-el) 33.7 ml SI(sp4-el) 16.7 ml/m\S\2 SV(sp2-el) 40.9 ml SI(sp2-el) 20.3 ml/m\S\2 Doppler Measurements and Calculations MV E max gareth 70.7 cm/sec MV A max gareth 19.0 cm/sec MV E/A 3.7 MV P1/2t max gareth 97.6 cm/sec MV P1/2t 73.7 msec MVA(P1/2t) 3.0 cm\S\2 MV dec slope 387.6 cm/sec\S\2 MV dec time 0.16 sec Ao V2 max 148.9 cm/sec Ao max PG 8.9 mmHg Ao max PG (full) 5.2 mmHg LV V1 max PG 3.7 mmHg LV V1 max 96.2 cm/sec PA V2 max 101.4 cm/sec PA max PG 4.1 mmHg TR max gareth 210.9 cm/sec
[2016-11-12 08:33] LABS: BASO % 1.3 %; BASO ABS # 0.05 K/uL (0-0.2); COMPLETE YES; EOS % 2.3 %; HEMATOCRIT 42.3 % (37-47); IG% 0.3 %; LYMPH % 20.2 %; MEAN CELL VOLUME 90.4 fL (80-100); MEAN CORPUSCULAR HEMOGLOBIN 31.2 pg (25-34); MEAN CORPUSCULAR HGB CONC 34.5 g/dl (32-36); MEAN PLATELET VOLUME 10.6 fL (7.4-10.4); MONO % 18.7 %; NEUT % 57.2 %; PLATELET COUNT 181 K/uL (130-400); RED BLOOD COUNT 4.68 M/uL (4.2-5.4); WHITE BLOOD COUNT 3.96 K/uL (4.8-10.8)
[2016-11-12 08:41] LABS: INR 2.2 (0.9-1.1); PROTHROMBIN TIME (PATIENT) 24.8 SECONDS (9.0-12.0)
[2016-11-12 08:59] LABS: BUN/CREATININE RATIO 20.5 (10-20); CALCIUM 8.9 mg/dl (8.5-10.1); CREATININE 0.91 mg/dl (0.60-1.20); POTASSIUM 3.5 mmol/L (3.5-5.1)
[2016-11-12] MEDS ORDERED: AZITHROMYCIN 250 MG TAB PO SCH (09:00)
[2016-11-12] MEDS ORDERED: POTASSIUM CHLORIDE 10 MEQ TABCR PO ONE (10:30)
--- NOTE | 2016-11-12 10:31 | Cardiology Follow-Up ---
Subjective General Date of Service: Nov 12, 2016. Chief Complaint: Cough Pt evaluation today including: conversation w/ patient, physical exam, chart review, lab review, review of studies, review of inpatient medication list History of Present Illness Patient seen and examined. Feels OK except for the cough/congestion that is difficulty to expectorate. No chest pain. No palpitations. Stable dyspnea, without orthopnea, PND, or increased fluid retention Telemetry: Chronic atrial fibrillation with a controlled ventricular response. Occasional PVC and fusion beat. November 11, 2016 TTE Interpretation Summary ([facility], Dr. West): There is mild concentric left ventricular hypertrophy. The left ventricular wall motion is normal. Ejection Fraction = 60-65%. The right ventricular systolic function is normal. The left atrium is moderately dilated. The right atrium is mild to moderately dilated. Grossly normal valvular structure and function. Allergies Coded Allergies: Lisinopril (Verified Adverse Reaction, Intermediate, COUGH, 11/10/16) Oxycodone (Verified Adverse Reaction, Unknown, DIZZINESS Lightheaded, 11/10/16) Social History Smoking Status: Never Smoker Hx Tobacco Use In Past Year?: No Hx Alcohol Use - Type And Amou: No Hx Substance Use - Type And Am: No Problem List Medical Problems: (1) Acute chest pain Status: Acute (2) Anticoagulated on Coumadin Status: Acute (3) Atypical angina Status: Acute (4) Elevated lactic acid level Status: Acute (5) Nausea Status: Acute (6) Pneumonia Status: Acute (7) Reactive airway disease Status: Acute (8) Vaginal bleeding Status: Acute Social History Problems: (1) S/P D&C (status post dilation and curettage) Status: Acute Physical Exam Vital Signs Last Vital Signs Documentation Date Time Temp Pulse Resp B/P Pulse Ox O2 Delivery O2 Flow Rate FiO2 11/12/16 08:04 37.0 75 20 119/66 95 Room Air Physical Exam Constitutional: General Apperance: overweight Level of Distress: mild distress Ambulation: ambulating normally Psychiatric: Mental Status: active & alert Orientation: to time, to place, to person Memory: recent memory normal, remote memory normal Head: normocephalic, atraumatic Eyes: Pupils: PERRLA Neck: pertinent finding (No JVD) Lungs: Auscultation: no rales/crackles, no rhonchi, deminished air movement, expiratory wheezing Cardiovascular: Heart Auscultation: II/ JAMIE, irregular rate rhythm Peripheral Pulses: Radial Pulse: normal on the left, normal on the right Dorsalis Pedis Pulse: decreased on the left, decreased on the right Abdomen: Bowel Sounds: normal Inspection & Palpation: soft, non-distended, no masses Extremities: no cyanosis, no clubbing, edema (lymphedematous changes) Neurologic: Cranial Nerves: grossly intact Assessment and Plan Assessment and Plan Presentation secondary to URI symptoms, acute complicated bronchitis. Treatment as per the Hospitalist Service. New inferolateral T wave changes. Chronic atypical chest pain. Cardiac enzymes negative x 3. Resting echocardiogram with normal LV systolic function, without wall motion abnormalities. Suspect changes are pacemaker mediated. Outpatient Lexiscan nuclear stress testing in 2 weeks. Note: Patient unable to ambulate for HASMUKH, pacer, past marked hypertensive BP response to dobutamine infusion. Continue beta-mis, ASA and statin Chronic atrial fibrillation. 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 Cage without complication. Device interrogated and reprogrammed on 11/11/2016, lower rate increased from 60 bpm to 70 bpm. Repeat pacemaker interrogation due in February 2017. Hypertension. Coreg increased for additional BP control, without difficulty. Continue other outpatient medications as prescribed. Dyslipidemia. Continue statin. Laboratory Results Last 24 Hours Test 11/11/16 14:00 11/11/16 14:27 11/12/16 08:18 Creatine Kinase MB Ratio Creatine Kinase MB < 0.5 ng/ml Troponin I < 0.015 ng/ml White Blood Count 3.96 K/uL Red Blood Count 4.68 M/uL Hemoglobin 14.6 g/dL Hematocrit 42.3 % Mean Corpuscular Volume 90.4 fL Mean Corpuscular Hemoglobin 31.2 pg Mean Corpuscular Hemoglobin Concent 34.5 g/dl Platelet Count 181 K/uL Mean Platelet Volume 10.6 fL Neutrophils (%) (Auto) 57.2 % Lymphocytes (%) (Auto) 20.2 % Monocytes (%) (Auto) 18.7 % Eosinophils (%) (Auto) 2.3 % Basophils (%) (Auto) 1.3 % Neutrophils # (Auto) 2.27 K/uL Lymphocytes # (Auto) 0.80 K/uL Monocytes # (Auto) 0.74 K/uL Eosinophils # (Auto) 0.09 K/uL Basophils # (Auto) 0.05 K/uL RDW Standard Deviation 45.6 fL RDW Coefficient of Variation 13.8 % Immature Granulocyte % (Auto) 0.3 % Immature Granulocyte # (Auto) 0.01 K/uL Prothrombin Time 24.8 SECONDS Prothromb Time International Ratio 2.2 Sodium Level 134 mmol/L Potassium Level 3.5 mmol/L Chloride Level 99 mmol/L Carbon Dioxide Level 25 mmol/L Anion Gap 10.0 mmol/L Blood Urea Nitrogen 19 mg/dl Creatinine 0.91 mg/dl Est Creatinine Clear Calc Drug Dose 54.0 ml/min Estimated GFR () 68.6 Estimated GFR (Non- 59.2 BUN/Creatinine Ratio 20.5 Random Glucose 117 mg/dl Calcium Level 8.9 mg/dl
[2016-11-12] MEDS ORDERED: ASPEC81 PO (10:41)
[2016-11-12] MEDS ORDERED: CRG625 PO (10:41)
[2016-11-12] MEDS ORDERED: APR50 PO (10:41)
[2016-11-12] MEDS ORDERED: GFNSR600 PO (10:41)
[2016-11-12] MEDS ORDERED: ZTHM250 PO (10:41)
--- NOTE | 2016-11-12 10:43 | Discharge Instructions ---
Discharge Instructions Admission Reason for Admission: Cardiac Ischemia Discharge Discharge Diagnosis / Problem: non cardiac chest pain, pacemaker adjustment, bronchitis Discharge Goals Goal(s): Diagnostic testing, Therapeutic intervention Activity Recommendations Activity Limitations: resume your previous activity . Instructions / Follow-Up Instructions / Follow-Up You may take two of your coreg 3.125 mg at once twice a day until done, then use new RX follow up with Parminder Lowery Current Hospital Diet Patient's current hospital diet: AHA Diet (Heart Healthy) Discharge Diet Recommended Diet: Low Sodium Diet (2gm Na) Pending Studies Studies pending at discharge: no Medical Emergencies . Who to Call and When: Medical Emergencies: If at any time you feel your situation is an emergency, please call 911 immediately. . Non-Emergent Contact Non-Emergency issues call your: [facility] . . "Provider Documentation" section prepared by Timothy Malagon. VTE Core Measure Inpt VTE Proph given/why not?: Unfractionated heparin SQ
[2016-11-12 10:59] VITALS: BP 119/66; PULSE 75; TEMP 37; O2SAT 95
[2016-11-12 11:06] VITALS: BP 143/72; PULSE 72; TEMP 36.6; O2SAT 94
--- NOTE | 2016-11-12 17:51 | Discharge Summary ---
Discharge Summary Admission Date: Nov 10, 2016 at 19:08 Discharge Date: Nov 12, 2016 Discharge Disposition: Home Principal Diagnosis: chest pain from palpitations, bronchitis Procedures: echo without new RWMA preserved EF Consultations: Parminder jaffe did see as he follows in clinic, dr sanchez supervising doctor Medication Reconciliation New Medications: Guaifenesin Ext Rel (Mucinex Ext Rel) 600 Mg Tabcr 1200 MG PO Q12, #20 TAB Aspirin (Aspirin EC Low Dose) 81 Mg Ectab 81 MG PO QAM, #365 DOSE Azithromycin (Azithromycin) 250 Mg Tab 250 MG PO QAM, #3 TAB Carvedilol (Carvedilol) 6.25 Mg Tab 6.25 MG PO BID, #60 TAB 6 Refills Hydralazine HCl (Hydralazine HCl) 50 Mg Tab 50 MG PO TID, #90 TAB 6 Refills Continued Medications: Docusate Sodium (Docusate Sodium) 100 Mg Cap 1 CAP PO BID Hydrochlorothiazide (Hctz) 50 Mg Tab 25 MG PO QAM, TAB Losartan Potassium (Cozaar) 100 Mg Tab 100 MG PO QAM, TAB Potassium Chloride (Micro-K Ext Rel) 10 Meq Capcr 10 MEQ PO NOON, CAP Simvastatin (Zocor) 20 Mg Tab 20 MG PO QPM, TAB Warfarin Sod (Jantoven) 5 Mg Tab 1.5 TAB PO DIRECTED, TAB TAKE 1.5 TABLETS EVERY Thursday. Warfarin Sodium (Coumadin) 5 Mg Tab 5 MG PO HS TAKE 5 MG EVERYDAY EXCEPT Thursday Discontinued Medications: Carvedilol (Carvedilol) 3.125 Mg Tab 3.125 MG PO BID, #64 Hydrochlorothiazide (Hydrochlorothiazide) 25 Mg Tab 12.5 MG PO DAILY Discharge Exam Review of Systems: Constitutional: No chills, No fever Respiratory: + cough, + sputum, No dyspnea on exertion, No shortness of breath Cardiovascular: No chest pain, No edema, No orthopnea Abdomen: No diarrhea, No nausea, No pain, No vomiting Musculoskeletal: No joint pain, No muscle pain, No swelling Genitourinary - Male: No dysuria, No hematuria Neurologic: No memory loss, No paralysis Physical Exam: General Appearance: WD/WN, + mild distress Neck: supple, thyroid normal Respiratory/Chest: chest non-tender, lungs clear, + decreased breath sounds , + accessory muscle use Cardiovascular: regular rate, rhythm, + systolic murmur Abdomen / GI: normal bowel sounds, non tender, soft Extremities: no pedal edema, normal range of motion Neurologic/Psychiatric: alert, oriented x 3 Hospital Course 81-F with Chest pain, new lateral ECG changes but negative Troponins, ecg changes felt to be from fusion beats, bronchitis likely cause of pain Chest pain, no significant troponin elevation so will rule out acute coronary syndrome, Ux Specialist with cardiology feels ECG changes are fusion beats confused by pacemaker, pacemaker adjustment performed. Is anticoagulated with Coumadin for Afib, continues aspirin, increase coreg and zocor bronchitis, sputum specimen and azithromycin po for htn additionally uses cozaar hctz Coumadin restart Recent URI symptoms, no infiltrate on CXR and negative Influenza Total Time Spent: Greater than 30 minutes This includes examination of the patient, discharge planning, medication reconciliation, and communication with other providers. Discharge Instructions Please refer to the electronic Patient Visit Report (Discharge Instructions) for additional information.
[2017-06-05] MEDS ORDERED: MRLP17X PO (16:04)
[2017-06-05] MEDS ORDERED: NRV5 PO (16:04)
[2017-06-05] MEDS ORDERED: CARV12.52 PO (16:04)
[2017-06-06] MEDS ORDERED: ERGO500037 PO (14:28)
== END 2016-11-12 13:27 | disposition home or self-care (01) | DRG 203 ==
LOC: ENRESERVDT → ENRESERVTM → C.EDB 15:03 → C.2T 19:08
PROVIDERS: ADMIT Hospitalist; ATTEND Internal Medicine
DX: J20.9 Acute bronchitis, unspecified (principal); I10 Essential (primary) hypertension; I48.2 Chronic atrial fibrillation; Z95.0 Presence of cardiac pacemaker; E66.9 Obesity, unspecified; I49.5 Sick sinus syndrome; E78.5 Hyperlipidemia, unspecified; Z79.01 Long term (current) use of anticoagulants; Z85.820 Personal history of malignant melanoma of skin

== ENCOUNTER → 2016-11-20 | Outpatient (CLI) | payer OTHER, MEDICARE ==
[~2016-11-20] MED LIST changes: +AMLO-110 PO; +APR50 PO; +ASPEC81 PO; +CARV12.52 PO; +CEPH500C PO; +CRG625 PO; +ERGO500037 PO; +GFNSR600 PO; +HYDR25TA5 PO; +MRLP17X PO; +NRV5 PO; +POLY335019 PO; +POTA10TA33 PO; -VLTG EXT; +WARF5TAB7 PO; +ZTHM250 PO
--- NOTE | 2016-11-20 15:37 | DIAGNOSTIC IMAGING REPORT ---
TWO VIEW CHEST CLINICAL HISTORY: Cough. Atrial fibrillation. FINDINGS: PA and lateral chest radiographs are compared to study dated 11/10/2016. A single lead cardiac pacemaker is unchanged in position and partially obscures the right mid chest. The heart is enlarged and there is atherosclerotic calcification of the thoracic aorta. The pulmonary vasculature is noncongested. Chronic interstitial thickening is similar to previous. No airspace consolidation or pleural effusion is identified. There is no pneumothorax. The skeletal structures are osteopenic. Degenerative change and hyperkyphosis are noted in the thoracic spine. Surgical clips are noted in the left axilla. IMPRESSION: 1. Cardiomegaly and cardiac pacemaker. There is no radiographic evidence of congestive failure. 2. No airspace consolidation or pleural effusion is identified. Electronically signed by: Alexandro Hansen M.D. 11/20/2016 3:36 PM Dictated Date/Time: 11/20/2016 3:33 PM
== END | disposition home or self-care (01) ==
LOC: C.RADPV 15:21
PROVIDERS: ATTEND Nurse Practitioner
DX: I48.91 Unspecified atrial fibrillation (principal)

== ENCOUNTER → 2017-01-12 | Outpatient (CLI) | payer OTHER, MEDICARE ==
[~2017-01-12] MED LIST changes: +AZIT-57 PO; -ZTHM250 PO
[2017-01-12 13:09] LABS: ESTIMATED AVERAGE GLUCOSE 117 mg/dl; HA1C FLAG Normal (Normal)
[2017-01-12 13:15] LABS: BLOOD UREA NITROGEN 10 mg/dl (7-18); BUN/CREATININE RATIO 11.8 (10-20); CALCIUM 9.1 mg/dl (8.5-10.1); CARBON DIOXIDE 30 mmol/L (21-32); CHLORIDE 104 mmol/L (98-107); CREATININE 0.85 mg/dl (0.60-1.20); GLUCOSE 94 mg/dl (70-99); POTASSIUM 4.1 mmol/L (3.5-5.1); SODIUM 139 mmol/L (136-145)
[2017-01-12 13:19] LABS: CHOLESTEROL 176 mg/dl (0-200); HDL CHOLESTEROL 59 mg/dl; LDL CHOLESTEROL CALCULATED 82 mg/dl; TRIGLYCERIDES 175 mg/dl (0-150); VERY LOW DENSITY LIPOPROT CALC 35 mg/dl
== END | disposition home or self-care (01) ==
LOC: C.LABPVFM 12:46
PROVIDERS: ATTEND Nurse Practitioner
DX: R73.01 Impaired fasting glucose (principal); E87.6 Hypokalemia; I10 Essential (primary) hypertension; E78.5 Hyperlipidemia, unspecified; I48.91 Unspecified atrial fibrillation

== ENCOUNTER → 2017-02-03 | Outpatient (CLI) | payer OTHER, MEDICARE ==
[~2017-02-03] MED LIST changes: +REGADENOSON 0.4 MG/5 ML SYR ONE
--- NOTE | 2017-02-04 14:07 | MYOCARDIAL PERFUSION SCAN ---
ONE-DAY NUCLEAR MEDICINE TECHNETIUM-99M CARDIOLITE MYOCARDIAL PERFUSION SCAN CLINICAL HISTORY: The patient has numerous cardiac risk factors, and has been experiencing an atypical chest pain syndrome. COMPARISON: None. TECHNIQUE: For the stress portion of the study, 30.9 mCi of Technetium 99 m Cardiolite IV was injected at 11:45 a.m. on . Thirty minutes following the injection, imaging of the heart was performed in multiple projection. For the rest portion of the study, 10.2 mCi of Technetium 99 m Cardiolite was injected IV at 10:00 a.m. One hour following the injection, imaging of the heart was performed in the same projections. For the stress portion of the study, 0.4 mg of Lexiscan was injected intravenously as per protocol. The patient tolerated the infusion well. She did not experience chest discomfort. There were no ventricular dysrhythmias. Following the study, patient was hemodynamically stable without complaints. FINDINGS: The short axis, vertical long axis, and horizontal long axis images were reviewed in detail. There is a small fixed defect at the apex present at both stress and rest. This demonstrates normal systolic function. This suggests breast attenuation and is confirmed by the rotating images. No definite myocardial infarction nor evidence of stress induced myocardial ischemia. Left ventricular systolic function is normal without wall motion abnormality. The left ventricular ejection fraction is 60%. IMPRESSION: 1. No scintigraphic evidence of a myocardial infarction or stress induced myocardial ischemia. 2. Breast attenuation noted 3. No Lexiscan induced chest pain. 4. No Lexiscan induced EKG changes over the baseline abnormality. 5. Normal left ventricular ejection fraction of 60% without wall motion abnormality.
--- NOTE | 2017-02-05 12:14 | CODING QUERY NO DIAGNOSIS ---
: 1935 TREATMENT RENDERED WITHOUT A DIAGNOSIS To promote full compliance with coding requirements relating to patient care, physician participation is requested in all cases of household appliance installer uncertainty. Please assist us with providing a diagnosis/symptom for the test(s) below: A diagnosis/symptom was not documented on your Order. A valid diagnosis/symptom is required to bill all insurances. Please remember that we are unable to code a diagnosis of rule out, probable, possible, questionable, or suspected. Tests that require a diagnosis: DOS: 02/03/17 * Myocardial Lexiscan DIAGNOSIS: * Myocardial Perf Img DIAGNOSIS: Provider Signature: Date: Thank you Mary Kay Mcfarlane Health Information Management Once completed, please kindly fax back to [phone] For questions please call [phone]
== END | disposition home or self-care (01) ==
LOC: C.NUCL 09:18
PROVIDERS: ATTEND Physician Assistant
DX: R07.89 Other chest pain (principal); R94.31 Abnormal electrocardiogram [ECG] [EKG]

== ENCOUNTER 2017-06-03 23:03 | Observation (INO) | payer OTHER, MEDICARE ==
[~2017-06-03] VITALS: Ht 165.1 cm; Wt 100.8 kg
[~2017-06-03 23:03] MED LIST changes: -AMLO-110 PO; -AZIT-57 PO; -CARV12.52 PO; -CEPH500C PO; -ERGO500037 PO; -GFNSR600 PO; -HYDR-4717 PO; -HYDR25TA5 PO; -MRLP17X PO; -NRV5 PO; -POLY335019 PO; -POTA10TA33 PO; -REGADENOSON 0.4 MG/5 ML SYR ONE; +ZTHM250 PO
[2017-06-03] MEDS ORDERED: HydrALAZINE HCL 20 MG/ML VIAL IV. STA (23:28)
[2017-06-04] VITALS (7 sets, daily range): BP systolic 137–210; BP diastolic 59–102; PULSE 67–75; TEMP 36.4–36.6; O2SAT 94–98; Ht 165.1 cm; Wt 100.8 kg
[2017-06-04 00:13] LABS: BASO % 0.6 %; BASO ABS # 0.03 K/uL (0-0.2); COMPLETE YES; EOS % 1.5 %; HEMATOCRIT 41.4 % (37-47); IG% 0.2 %; LYMPH % 20.7 %; LYMPH ABS # 1.07 K/uL (1.2-3.4); MEAN CELL VOLUME 90.6 fL (80-100); MEAN CORPUSCULAR HEMOGLOBIN 31.5 pg (25-34); MEAN CORPUSCULAR HGB CONC 34.8 g/dl (32-36); MEAN PLATELET VOLUME 10.2 fL (7.4-10.4); MONO % 15.3 %; NEUT % 61.7 %; PLATELET COUNT 203 K/uL (130-400); RED BLOOD COUNT 4.57 M/uL (4.2-5.4); WHITE BLOOD COUNT 5.18 K/uL (4.8-10.8)
[2017-06-04 00:26] LABS: INR 2.6 (0.9-1.1); PARTIAL THROMBOPLASTIN RATIO 1.6; PROTHROMBIN TIME (PATIENT) 29.4 SECONDS (9.0-12.0)
[2017-06-04 00:31] LABS: ALT/SGPT 17 U/L (12-78); BLOOD UREA NITROGEN 15 mg/dl (7-18); BUN/CREATININE RATIO 18.6 (10-20); CALCIUM 8.8 mg/dl (8.5-10.1); CARBON DIOXIDE 27 mmol/L (21-32); CHLORIDE 104 mmol/L (98-107); GLUCOSE 133 mg/dl (70-99); MAGNESIUM 1.9 mg/dl (1.8-2.4); SODIUM 137 mmol/L (136-145)
[2017-06-04 00:34] LABS: ALKALINE PHOSPHATASE 61 U/L (45-117); AST/SGOT 15 U/L (15-37); CKMB/CK RATIO 2.5 (0-3.0); PHOSPHORUS 2.8 mg/dl (2.5-4.9)
[2017-06-04] MEDS ORDERED: ASPIRIN 324 MG CHEW PO STA (00:41)
[2017-06-04] MEDS ORDERED: ASPIRIN 324 MG CHEW ONE (00:42)
[2017-06-04 00:44] LABS: URINE APPEARANCE CLEAR (CLEAR); URINE BILIRUBIN NEG (NEG); URINE COLOR YELLOW; URINE NITRITE NEG (NEG); URINE SPECIFIC GRAVITY 1.013 (1.000-1.030); UROBILINOGEN NEG (NEG); ZZUR CULT IF INDIC CLEAN CATCH NO
[2017-06-04] MEDS: NITROGLYCERIN 0.4 MG SL PER TAB CHARGE SL PRN ×2 (00:46→00:55)
[2017-06-04] MEDS ORDERED: POTA10TA33 PO (00:53)
[2017-06-04] MEDS ORDERED: HYDR25TA5 PO (00:54)
[2017-06-04 00:59] LABS: MANUAL MICROSCOPIC REQUIRED? NO; REVIEW REQ? NO
[2017-06-04] MEDS ORDERED: MoRPHine SULFATE 2 MG/ML CARP IV PRN (01:30)
[2017-06-04] MEDS ORDERED: ALUMINUM/MAGNESIUM/SIMETH (MAALOX MAX) 30 ML UDC PO PRN (01:30)
[2017-06-04] MEDS ORDERED: MAGNESIUM HYDROXIDE SUSP 30 ML UDC PO PRN (01:30)
[2017-06-04] MEDS ORDERED: ACETAMINOPHEN 325 MG TAB PO PRN (01:30)
[2017-06-04] MEDS ORDERED: POLYETHYLENE (MIRALAX) 17 GM PACK PO PRN (01:30)
[2017-06-04] MEDS ORDERED: NITROGLYCERIN 0.4 MG SL PER TAB CHARGE SL PRN (01:30)
[2017-06-04] MEDS ORDERED: ONDANSETRON INJ 2 MG/ML 2 ML VIAL IV PRN (01:30)
--- NOTE | 2017-06-04 01:33 | EMERGENCY ROOM VISIT NOTE ---
History Report prepared by Luli: Ian Spain Under the Supervision of: Dr. Yonatan Masters M.D. First contact with patient: 23:18 Chief Complaint: DIZZY Stated Complaint: FUNNY FEELING IN JAW, PRESSURE, DIZZY WEAK History of Present Illness The patient is a 81 year old female who presents to the Emergency Room with complaints of an episode of jaw "pressure" occurring two hours ago. She also complains of dizziness, a few seconds of chest pain, and generalized weakness during the episode. The patient states that she currently feels lightheaded, and her abdomen currently feels "heavy". She states that while she was reading today when her episode suddenly occurred. Her LNMP was moments ago. The patient denies any diarrhea, or problems with speech. She did not actually lose consciousness. Source of History: patient Onset: 2 hours ago Position: jaw Quality: pressure Timing: other (episode) Associated Symptoms: + chest pain (a few seconds), + abdominal pain (feels "heavy"), + weakness (generalized), No diarrhea Note: Additional symptoms: dizziness during the episode. Currently feels lightheaded. The patient denies any problems with speech. Review of Systems See HPI for pertinent positives & negatives. A total of 10 systems reviewed and were otherwise negative. Past Medical & Surgical Medical Problems: (1) Arthritis (2) Atrial fibrillation (3) Benign hypertension (4) Bronchitis (5) Cardiac ischemia (6) Chest pain (7) Dilation and curettage (8) Heart disease (9) Hypertensive urgency (10) Melanoma (11) Symptomatic bradycardia (12) Weakness Surgical Problems: (1) H/O lumpectomy (2) H/O: hysterectomy Family History Cancer Gallbladder disease Heart disease Hypertension Kidney disease Kidney stones Social History Smoking Status: Never Smoker Alcohol Use: none Drug Use: none Marital Status: Housing Status: lives with family Occupation Status: retired Current/Historical Medications Scheduled Carvedilol (Carvedilol), 6.25 MG PO BID Docusate Sodium (Docusate Sodium), 1 CAP PO BID Hydralazine HCl (Hydralazine HCl), 50 MG PO TID Hydrochlorothiazide (Hydrochlorothiazide), 25 MG PO DAILY Losartan Potassium (Cozaar), 100 MG PO QAM Potassium Chloride (Potassium Chloride Sr), 10 MEQ PO DAILY Simvastatin (Zocor), 20 MG PO QPM Warfarin Sod (Jantoven), 1.5 TAB PO DIRECTED Warfarin Sodium (Coumadin), 5 MG PO HS Allergies Coded Allergies: Lisinopril (Verified Adverse Reaction, Intermediate, COUGH, 06/04/17) Oxycodone (Verified Adverse Reaction, Unknown, DIZZINESS Lightheaded, ) Physical Exam Vital Signs Date Time Temp Pulse Resp B/P (MAP) Pulse Ox O2 Delivery O2 Flow Rate FiO2 06/04/17 00:54 71 16 168/74 96 Room Air 06/04/17 00:33 74 20 226/97 98 Room Air 06/03/17 23:49 74 06/03/17 23:07 36.7 71 20 208/100 96 Room Air Physical Exam GENERAL: Patient is anxious appearing and in mild distress. HEENT: No acute trauma, normocephalic atraumatic, mucous membranes moist, no nasal congestion, no scleral icterus. NECK: No stridor, no adenopathy, no meningismus, trachea is midline. LUNGS: No dyspnea. Clear to auscultation and equal bilaterally. No wheeze, no rhonchi. HEART: Regular rate and rhythm. No murmurs, rubs, gallops appreciated. ABDOMEN: Soft, bowel sounds positive, no masses appreciated, no peritonitis. Vague tenderness over the LLQ (patient states that this is due to anxiety) BACK: No midline tenderness, no CVA tenderness EXTREMITIES: Normal motion all extremities, no cyanosis, no edema. NEUROLOGIC: Alert and oriented, no acute motor or sensory deficits, no focal weakness, cranial nerves grossly intact. SKIN: No rash, no jaundice, no diaphoresis. Medical Decision & Procedures ER Provider Diagnostic Interpretation: One View Chest X-ray interpreted by me: Enlarged heart. Similar to previous chest x-ray. Pacemaker in right upper chest with lead intact. No pneumothorax. No effusion. No infiltrate appreciated. Laboratory Results 06/03/17 23:55 Red Blood Count 4.57, Mean Corpuscular Volume 90.6, Mean Corpuscular Hemoglobin 31.5, Mean Corpuscular Hemoglobin Concent 34.8, Mean Platelet Volume 10.2, Neutrophils (%) (Auto) 61.7, Lymphocytes (%) (Auto) 20.7, Monocytes (%) (Auto) 15.3, Eosinophils (%) (Auto) 1.5, Basophils (%) (Auto) 0.6, Neutrophils # (Auto ) 3.20, Lymphocytes # (Auto) 1.07, Monocytes # (Auto) 0.79, Eosinophils # (Auto ) 0.08, Basophils # (Auto) 0.03 06/03/17 23:55 Test 06/03/17 23:55 06/04/17 00:06 06/04/17 00:30 White Blood Count 5.18 K/uL (4.8-10.8) Red Blood Count 4.57 M/uL (4.2-5.4) Hemoglobin 14.4 g/dL (12.0-16.0) Hematocrit 41.4 % (37-47) Mean Corpuscular Volume 90.6 fL (80-100) Mean Corpuscular Hemoglobin 31.5 pg (25-34) Mean Corpuscular Hemoglobin Concent 34.8 g/dl (32-36) Platelet Count 203 K/uL (130-400) Mean Platelet Volume 10.2 fL (7.4-10.4) Neutrophils (%) (Auto) 61.7 % Lymphocytes (%) (Auto) 20.7 % Monocytes (%) (Auto) 15.3 % Eosinophils (%) (Auto) 1.5 % Basophils (%) (Auto) 0.6 % Neutrophils # (Auto) 3.20 K/uL (1.4-6.5) Lymphocytes # (Auto) 1.07 K/uL (1.2-3.4) Monocytes # (Auto) 0.79 K/uL (0.11-0.59) Eosinophils # (Auto) 0.08 K/uL (0-0.5) Basophils # (Auto) 0.03 K/uL (0-0.2) RDW Standard Deviation 46.6 fL (36.4-46.3) RDW Coefficient of Variation 14.0 % (11.5-14.5) Immature Granulocyte % (Auto) 0.2 % Immature Granulocyte # (Auto) 0.01 K/uL (0.00-0.02) Prothrombin Time 29.4 SECONDS (9.0-12.0) Prothromb Time International Ratio 2.6 (0.9-1.1) Activated Partial Thromboplast Time 40.9 SECONDS (21.0-31.0) Partial Thromboplastin Ratio 1.6 Anion Gap 6.0 mmol/L (3-11) Est Creatinine Clear Calc Drug Dose 64.3 ml/min Estimated GFR () 80.1 Estimated GFR (Non- 69.1 BUN/Creatinine Ratio 18.6 (10-20) Calcium Level 8.8 mg/dl (8.5-10.1) Phosphorus Level 2.8 mg/dl (2.5-4.9) Magnesium Level 1.9 mg/dl (1.8-2.4) Total Bilirubin 0.4 mg/dl (0.2-1) Direct Bilirubin 0.1 mg/dl (0-0.2) Aspartate Amino Transf (AST/SGOT) 15 U/L (15-37) Alanine Aminotransferase (ALT/SGPT) 17 U/L (12-78) Alkaline Phosphatase 61 U/L (45-117) Total Creatine Kinase 36 U/L (26-192) Creatine Kinase MB 0.9 ng/ml (0.5-3.6) Creatine Kinase MB Ratio 2.5 (0-3.0) Total Protein 6.7 gm/dl (6.4-8.2) Albumin 3.4 gm/dl (3.4-5.0) Lipase 188 U/L (73-393) Bedside Lactic Acid Venous 1.38 mmol/L (0.90-1.70) Urine Color YELLOW Urine Appearance CLEAR (CLEAR) Urine pH 7.0 (4.5-7.5) Urine Specific Briggs 1.013 (1.000-1.030) Urine Protein NEG (NEG) Urine Glucose (UA) NEG (NEG) Urine Ketones NEG (NEG) Urine Occult Blood NEG (NEG) Urine Nitrite NEG (NEG) Urine Bilirubin NEG (NEG) Urine Urobilinogen NEG (NEG) Urine Leukocyte Esterase SMALL (NEG) Urine WBC (Auto) 1-5 /hpf (0-5) Urine RBC (Auto) 0-4 /hpf (0-4) Urine Hyaline Casts (Auto) 0 /lpf (0-5) Urine Epithelial Cells (Auto) 5-10 /lpf (0-5) Urine Bacteria (Auto) NEG (NEG) Laboratory results as reviewed by me. Medications Administered Medications (Trade) Dose Ordered Sig/Braulio Route Start Time Stop Time Status Last Admin Dose Admin Hydralazine HCl (HydrALAZINE INJ) 10 mg NOW STAT IV. 06/03/17 23:28 06/03/17 23:29 DC 06/04/17 00:07 10 MG Nitroglycerin (Nitrostat Tab) 0.4 mg Q5M PRN SL 06/04/17 00:45 06/04/17 02:00 DC 06/04/17 00:55 0.4 MG Aspirin (Aspirin Chew) 324 mg NOW STAT PO 06/04/17 00:41 06/04/17 00:42 DC 06/04/17 00:41 324 MG ECG Indication: chest pain Rate (beats per minute): 79 Rhythm: other (Atrial sensed, ventricular paced rhythm) Findings: PAC, no acute ischemic change Change: no significant change (from previous) Change: Repeat ECG reveals an atrial paced rhythm with a rate of 74 bpm. PACs and deep T -wave inversions noted. QTC of 455 noted. ED Course 2322: The patient was evaluated in room C1B. A complete history and physical exam was performed. 2328: Ordered Hydralazine Inj 10 mg IV. 0041: Ordered Aspirin Chew 324 mg PO. 0040: I reassessed the patient. She has begun experiencing mild left sided chest pressure. Repeat ECG on the patient now has atrial pacing with deep T- wave inversions. 0045: Ordered Nitrostat Tab 0.4 mg SL. 0100: Upon reevaluation, the patient is resting comfortably. Her chest pain has improved with the Nitro. Discussed results and treatment plan with the patient. She verbalized understanding and agreement with the treatment plan. The patient will be evaluated for further management. Medical Decision Differential: Sepsis, Infectious (UTI/Pneumonia/Meningitis/etc), Metabolic/ Electrolyte Abnormality, Cardiac, Hepatic, Endocrine, Toxicologic, Neurologic, amongst other pathologies entertained. 81 yr old female arrives with vague complaints though while here with episode left sided chest pressure which when repeating EKG has changed from AV Paced to A paced with PACs. ASA/SLNTG given with resolution in chest pain as well as her HTN. Otherwise evaluation/work-up benign. Initial Trop negative though as chest started here will need longer rule out. Bring in to hospitalist for further evaluation/treatment. Patient notes vague abdominal pain though her exam is benign. With normal labs and no further abdominal complaints I feel CT currently not indicated. CP not typical for PE nor Dissection. No Neuro deficits. No evidence infectious etiology currently. Medication Reconcilliation Current Medication List: was personally reviewed by me Blood Pressure Screening Patient's blood pressure: Elevated blood pressure Blood pressure disposition: Referred to PCP Consults Time Called: 57 Consulting Physician: Dr. Antonina ÁlvarezTHE [facility] Returned Call: [phone] Discussed the patient's case. The patient will be evaluated for further treatment and disposition. Impression Primary Impression: Left sided chest pain Additional Impressions: Hypertensive emergency Acute electrocardiogram changes Generalized weakness Scribe Attestation The scribe's documentation has been prepared under my direction and personally reviewed by me in its entirety. I confirm that the note above accurately reflects all work, treatment, procedures, and medical decision making performed by me. Departure Information Dispostion Being Evaluated By Hospitalist Referrals No Doctor, Assigned (PCP) Patient Instructions My [facility] Problem Qualifiers
--- NOTE | 2017-06-04 01:42 | History and Physical ---
History & Physical Date & Time of Service: Jun 04, 2017 at 01:27 Chief Complaint: Funny Feeling In Jaw, Pressure, Dizzy Weak Primary Care Physician: No Doctor, Assigned History of Present Illness Source: patient 81 y/o F Hx chronic AF, tachy/deysi syndrome with pacer placement, HTN, HPL. Pt presents with a constellation of symptoms including jaw pain, shoulder, L arm pain, intermittent CP, nausea and abdominal discomfort. She denies significant SOB, vomiting, diarrhea, dysuria, fevers. The pt's SBP was > 200 on arrival to the ER. She responded to a dose of IV Hydralazine. An initial EKG showed a paced rhythm at 80 BPM. A follow-up EKG had a rate of 74 without pacing. It is unclear if her pacer is malfunctioning, however, there does not appear to be a clear correlation between pacing or lack of pacing and her symptoms. 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 3) HTN 4) HPL 5) Morbid obesity 6) Melanoma L arm 7) Osteoarthritis 8) Uterine CA 9) Normal echo and stress test 04/2017 Surgical 1) Cataracts 2) Pacer 3) Hysterectomy 4) Pacer placement 5) Umbilical hernia repair 6) Polypectomy 7) Breast biopsy Family History Cancer Gallbladder disease Heart disease Hypertension Kidney disease Kidney stones Social History Smoking Status: Never Smoker Drug Use: none Marital Status: Housing status: lives with family Occupational Status: retired Multi-Drug Resistant Organisms History of MDRO: No Allergies Coded Allergies: Lisinopril (Verified Adverse Reaction, Intermediate, COUGH, 06/04/17) Oxycodone (Verified Adverse Reaction, Unknown, DIZZINESS Lightheaded, ) Home Medications Scheduled Carvedilol (Carvedilol), 6.25 MG PO BID Docusate Sodium (Docusate Sodium), 1 CAP PO BID Hydralazine HCl (Hydralazine HCl), 50 MG PO TID Hydrochlorothiazide (Hydrochlorothiazide), 25 MG PO DAILY Losartan Potassium (Cozaar), 100 MG PO QAM Potassium Chloride (Potassium Chloride Sr), 10 MEQ PO DAILY Simvastatin (Zocor), 20 MG PO QPM Warfarin Sod (Jantoven), 1.5 TAB PO DIRECTED Warfarin Sodium (Coumadin), 5 MG PO HS Review of Systems Constitutional: No fever, No chills, No sweats Eyes: No worsening of vision ENT: No hearing loss, No unusual epistaxis, No nasal symptoms Respiratory: No cough, No sputum, No wheezing Cardiovascular: + chest pain, No orthopnea, No PND Abdomen: + nausea, No pain, No vomiting Musculoskeletal: + joint pain, + muscle pain (Diffuse - including shoulder, jaw , L arm ) Genitourinary - Female: No dysuria, No urinary frequency, No urinary urgency Neurologic: No memory loss, No paralysis, No weakness Psychiatric: + depression symptoms Endocrine: No fatigue Hematologic / Lymphatic: No abnormal bleeding/bruising Integumentary: No rash Allergic / Immunologic: No environmental allergies Physical Exam Vital Signs Date Time Temp Pulse Resp B/P (MAP) Pulse Ox O2 Delivery O2 Flow Rate FiO2 06/04/17 00:54 71 16 168/74 96 Room Air 06/04/17 00:33 74 20 226/97 98 Room Air 06/03/17 23:49 74 06/03/17 23:07 36.7 71 20 208/100 96 Room Air General Appearance: + pertinent finding (Overweight, elderly female - moaning - appears markedly uncomfortable ) Head: normocephalic, atraumatic Eyes: normal inspection, EOMI ENT: normal ENT inspection, pharynx normal Neck: supple, + pertinent finding (Cannot assess JVD due to habitus) Respiratory/Chest: lungs clear, normal breath sounds, + pertinent finding ( Entire chest is tender to palpation) Cardiovascular: regular rate, rhythm, + pertinent finding (Faint heart sounds) Abdomen/GI: normal bowel sounds, soft, + pertinent finding (Diffusely tender) Back: normal inspection, no CVA tenderness Extremities/Musculoskelatal: no calf tenderness, normal capillary refill, + pedal edema 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 tested, no motor/sensory deficits, alert, oriented x 3 Skin: normal color Diagnostics Laboratory Results Results Past 24 Hours Test 06/03/17 23:55 06/04/17 00:06 06/04/17 00:30 Range/Units White Blood Count 5.18 4.8-10.8 K/uL Red Blood Count 4.57 4.2-5.4 M/uL Hemoglobin 14.4 12.0-16.0 g/dL Hematocrit 41.4 37-47 % Mean Corpuscular Volume 90.6 80-100 fL Mean Corpuscular Hemoglobin 31.5 25-34 pg Mean Corpuscular Hemoglobin Concent 34.8 32-36 g/dl Platelet Count 203 130-400 K/uL Mean Platelet Volume 10.2 7.4-10.4 fL Neutrophils (%) (Auto) 61.7 % Lymphocytes (%) (Auto) 20.7 % Monocytes (%) (Auto) 15.3 % Eosinophils (%) (Auto) 1.5 % Basophils (%) (Auto) 0.6 % Neutrophils # (Auto) 3.20 1.4-6.5 K/uL Lymphocytes # (Auto) 1.07 1.2-3.4 K/uL Monocytes # (Auto) 0.79 0.11-0.59 K/uL Eosinophils # (Auto) 0.08 0-0.5 K/uL Basophils # (Auto) 0.03 0-0.2 K/uL RDW Standard Deviation 46.6 36.4-46.3 fL RDW Coefficient of Variation 14.0 11.5-14.5 % Immature Granulocyte % (Auto) 0.2 % Immature Granulocyte # (Auto) 0.01 0.00-0.02 K/uL Prothrombin Time 29.4 9.0-12.0 SECONDS Prothromb Time International Ratio 2.6 0.9-1.1 Activated Partial Thromboplast Time 40.9 21.0-31.0 SECONDS Partial Thromboplastin Ratio 1.6 Sodium Level 137 136-145 mmol/L Potassium Level 4.0 3.5-5.1 mmol/L Chloride Level 104 98-107 mmol/L Carbon Dioxide Level 27 21-32 mmol/L Anion Gap 6.0 3-11 mmol/L Blood Urea Nitrogen 15 7-18 mg/dl Creatinine 0.80 0.60-1.20 mg/dl Est Creatinine Clear Calc Drug Dose 64.3 ml/min Estimated GFR () 80.1 Estimated GFR (Non- 69.1 BUN/Creatinine Ratio 18.6 10-20 Random Glucose 133 70-99 mg/dl Calcium Level 8.8 8.5-10.1 mg/dl Phosphorus Level 2.8 2.5-4.9 mg/dl Magnesium Level 1.9 1.8-2.4 mg/dl Total Bilirubin 0.4 0.2-1 mg/dl Direct Bilirubin 0.1 0-0.2 mg/dl Aspartate Amino Transf (AST/SGOT) 15 15-37 U/L Alanine Aminotransferase (ALT/SGPT) 17 12-78 U/L Alkaline Phosphatase 61 45-117 U/L Total Creatine Kinase 36 26-192 U/L Creatine Kinase MB 0.9 0.5-3.6 ng/ml Creatine Kinase MB Ratio 2.5 0-3.0 Troponin I < 0.015 0-0.045 ng/ml Total Protein 6.7 6.4-8.2 gm/dl Albumin 3.4 3.4-5.0 gm/dl Lipase 188 73-393 U/L Bedside Lactic Acid Venous 1.38 0.90-1.70 mmol/L Urine Color YELLOW Urine Appearance CLEAR CLEAR Urine pH 7.0 4.5-7.5 Urine Specific [place]lin 1.013 1.000-1.030 Urine Protein NEG NEG Urine Glucose (UA) NEG NEG Urine Ketones NEG NEG Urine Occult Blood NEG NEG Urine Nitrite NEG NEG Urine Bilirubin NEG NEG Urine Urobilinogen NEG NEG Urine Leukocyte Esterase SMALL NEG Urine WBC (Auto) 1-5 0-5 /hpf Urine RBC (Auto) 0-4 0-4 /hpf Urine Hyaline Casts (Auto) 0 0-5 /lpf Urine Epithelial Cells (Auto) 5-10 0-5 /lpf Urine Bacteria (Auto) NEG NEG EKG Initial EKG is paced - nondiagnostic - follow up shows AF - ST changes in ant, lat and inf leads - these were present on previous EKGs but are more prominent Impression Assessment and Plan 81 y/o F Hx chronic AF, tachy/deysi syndrome with pacer placement, HTN, HPL. Pt presents with a constellation of symptoms including jaw pain, shoulder, L arm pain, intermittent CP, nausea and abdominal discomfort. She denies significant SOB, vomiting, diarrhea, dysuria, fevers. The pt's SBP was > 200 on arrival to the ER. She responded to a dose of IV Hydralazine. An initial EKG showed a paced rhythm at 80 BPM. A follow-up EKG had a rate of 74 without pacing. It is unclear if her pacer is malfunctioning, however, there does not appear to be a clear correlation between pacing or lack of pacing and her symptoms. 1) CP - jaw pain - pt assigned to telemetry - will obtain serial enzymes - treat pain with NTG or Morphine PRN - cont Carvedilol, increase Statin - ASA added - Pt had a normal stress 2 months prior. 2) HTN urgency - she is on multiple medications - has responded to IV Hydralazine for now - will apply NTG patch and monitor on telemetry. 3) Chronic AF - cont B mis and Coumadin - INR is therapeutic 4) HPL - cont Statin therapy 5) Pacer - we will consult her corset maker to assess function AM Full code - Coumadin prophylaxis Total time for this admit including review of labs, meds, EKG - discussion with pt and ER attending - 40 min Level of Care Telemetry Resuscitation Status FULL RESUSCITATION VTE Prophylaxis VTE Risk Assessment Done? Y/N: Yes Risk Level: Moderate Given or contraindicated: Warfarin (Coumadin)
[2017-06-04] MEDS ORDERED: MoRPHine SULFATE 2 MG/ML CARP ONE (01:46)
[2017-06-04] MEDS ORDERED: NITROGLYCERIN OINT 2% 1GM PACKET EXT STA (01:57)
[2017-06-04] MEDS ORDERED: IV FLUIDS COMPLETED PRN (02:00)
--- NOTE | 2017-06-04 06:32 | DIAGNOSTIC IMAGING REPORT ---
CHEST ONE VIEW PORTABLE CLINICAL HISTORY: Generalized Weakness COMPARISON STUDY: 11/20/2016 FINDINGS: The heart is enlarged. There is aortic tortuosity/ectasia. There is no failure. There is no focal pulmonary consolidation. There is minor chronic interstitial thickening. Surgical clips project over the left axillary region. There is a right subclavian single chamber central venous pacemaker.[ IMPRESSION: Stable cardiomegaly. No acute findings. Electronically signed by: Abdon Cortés M.D. 06/04/2017 6:30 AM Dictated Date/Time: 06/04/2017 6:30 AM
[2017-06-04] MEDS: ATORVASTATIN 20 MG TAB PO SCH (07:33)
[2017-06-04] MEDS: POTASSIUM CHLORIDE 10 MEQ TABCR PO SCH (07:34)
[2017-06-04] MEDS: LOSARTAN POTASSIUM 50 MG TAB PO SCH (07:34)
[2017-06-04] MEDS: DOCUSATE SODIUM 100 MG CAP PO SCH ×2 (07:34→20:40)
[2017-06-04] MEDS: HYDROCHLOROTHIAZIDE 25 MG TAB PO SCH (07:34)
[2017-06-04] MEDS ORDERED: CARVEDILOL 6.25 MG TAB PO SCH (09:00)
[2017-06-04] MEDS ORDERED: CARVEDILOL 6.25 MG TAB PO ONE (09:58)
--- NOTE | 2017-06-04 09:58 | Cardiology Consultation ---
Cardiology Consultation Date of Service Jun 04, 2017. (Paulette Pinzon PA-C) Cardiology Consultation Cardiology Consult: Date: 06/04/17 Attending Investment Trader: Dr. Tse Requesting Provider: Dr. Sarkar Reason: CP; HTN; Pacemaker History of Present Illness: Kathy Tobin is an 81 year old female who is known to the [facility]iology practice, having been last evaluated by Irene Lowery PA-C in April 2017. PMH signifciant for Chronic afib, tachybrady s/p single chamber pacemaker in May 2016, chronic coumadin, moderate MR, hypertension, dyslipidemia, malignant melanoma of her left arm, uterine CA, obesity. She was hospitalized in Nov 2016 for UTI. EKG demonstrated new inferolateral T wave changes, found to have pseudofusion and fusion beats, therefore pacemaker was reprogrammed to VVI with lower rate of 70 bpm. Pharmacologic stress test was negative for inducible ischemia in February 2017. Patient states she was in usual state of health yesterday and last evening. She was reading a book and developed flushing sensation with dizziness, nausea, and abdominal discomfort. She noted mild chest pain at the time. She came to ER for evaluation. BP found to be significantly elevated. Patient states she has been compliant with medications. Arrival in ER she noted left arm and chest pain. Improved with nitro. BP improved with IV hydralazine. Started on nitro ointment. 2nd EKG completed at time of chest pain and concerns for T wave inversions. At time of consult, patient feeling ok. Dizziness improved. Notes ongoing left arm "ache". No chest pain. No orthopnea, PND or increased LE edema. No fever, cough, chills. No sense of palpitations. Review of Systems: See HPI for pertinent positives. All other 10 point review of systems is negative. Past Medical History: 1. Chronic atrial fibrillation 2. Tachy-Bran Syndrome status post single chamber pacemaker implantation on by Dr. Cage without complication. Medtronic Advisa SR MRI SureScan , Model #A3SR01, Serial #[id number]. The RV lead is a Medtronic, Model #5076, Serial #[id number] and is a bipolar active fixation steroid-tipped MRI compatible lead. 3. CHADS2 Score of 2 out of 6, chronic coumadin anticoagulation. 4. Mild to moderate mitral regurgitation 5. Suspected sleep apnea with evaluation declined. 6. Hypertension 7. Hyperlipidemia 8. Malignant melanoma, left arm 9. Uterine cancer status post January 2016 hysterectomy 10. Obesity 11. Osteoarthritis 12. Diverticulosis 13. Three colonic polyps removed December 26, 2014 Past Surgical History: Breast Biopsy. Umbilical hernia repair. Patient is status post D&C. January 2016 hysterectomy. Bilateral cataract extractions. Family History: Mother at 82 with unknown problems. Father in his 70' with a possible CO. Patient has three brothers, one with known ASCVD s/p CABG. Social History: Nonsmoker. No alcohol. . Living with her daughter. Review of patient's allergies indicates: Percocet [Oxycodone-Acetaminophen] Neuro complications (Please comment) Confusion, lightheaded Lisinopril cough ASA resulted in epistaxis Reported Home Medications Medications Dose Route/Sig Max Daily Dose Days Date Category Dose Instructions Hydrochlorothiazide 25 Mg Tab 25 Mg PO DAILY 06/04/17 Reported Potassium Chloride Sr (Potassium Chloride) 10 Meq Tab 10 Meq PO DAILY 06/04/17 Reported Hydralazine HCl 50 Mg Tab 50 Mg PO TID 11/12/16 Rx Carvedilol 6.25 Mg Tab 6.25 Mg PO BID 11/12/16 Rx Jantoven (Warfarin Sodium) 5 Mg Tab 1.5 Tab PO DIRECTED 11/10/16 Reported TAKE 1.5 TABLETS DAILY EVERY M// Docusate Sodium 100 Mg Cap 1 Cap PO BID 12/21/14 Reported Cozaar (Losartan Potassium) 100 Mg Tab 100 Mg PO QAM 12/21/14 Reported Zocor (Simvastatin) 20 Mg Tab 20 Mg PO QPM 04/17/13 Reported Coumadin (Warfarin Sodium) 5 Mg Tab 5 Mg PO HS 02/10/12 Reported TAKE 5 MG DAILY EVERY //SAT/SUN OBJECTIVE/PHYSICAL EXAMINATION: Last 8 Hrs Date Time Temp Pulse Resp B/P (MAP) Pulse Ox O2 Delivery O2 Flow Rate FiO2 06/04/17 08:00 Room Air 06/04/17 06:59 36.4 71 20 164/78 (106) 95 Room Air 06/04/17 04:17 36.4 71 18 137/59 (85) 95 Room Air 06/04/17 04:00 Room Air 8/31/17 02:10 36.6 75 16 191/87 95 Room Air General: Obese. NAD. Skin: Marked lymphedematous changes of the left arm noted with moderate diffuse lymphedematous changes elsewhere. HEENT: Normocephalic. PER. Conjunctiva pink, sclera clear. Right carotid bruit. No JVD. Heart: Irregularly irregular at 70 bpm. No murmur. Lungs: Clear to auscultation. Abdomen: Obese. +BS. Soft. Nontender. No hepatosplenomegaly. Extremities: Mild edema with chronic lymphedematous changes. No clubbing. No cyanosis. Data: EKG on admission; Atrial-sensed ventricular-paced rhythm with prolonged AV conduction Abnormal ECG When compared with ECG of 10-NOV-2016 16:44, Electronic ventricular pacemaker has replaced Atrial fibrillation Repeat EKG on 06/04 during episode of chest pain revealed - Ventricular pacing with intermittent fusion beats and T wave inversions Pacemaker interrogation completed today: appropriate function, battery longevity. 94% ventricular paced, with PVC's/fusion beats noted. Intrinsic rhythm chronic afib noted. Prior Data: November 2016 TTE Interpretation Summary ([facility], Dr. West): Grossly normal valvular structure and function. here is mild concentric left ventricular hypertrophy. The left ventricular wall motion is normal. Ejection Fraction = 60- 65%. The right ventricular systolic function is normal. The left atrium is moderately dilated. The right atrium is mild to moderately dilated. Grossly normal valvular structure and function. February 04, 2017 Lexiscan ([facility], Dr. Marrufo): No scintigraphic evidence of a myocardial infarction or stress induced myocardial ischemia. Breast attenuation noted. No Lexiscan induced chest pain. No Lexiscan induced EKG changes over the baseline abnormality. Normal left ventricular ejection fraction of 60% without wall motion abnormality. ASSESSMENT: 1. Hypertension - uncontrolled 2. Chest pain/left arm pain - ? musculoskeletal. Atypical for angina. Negative cardiac enzymes x2, 3rd set pending. 3. Pacemaker in situ, with history of fusion beats 4. Chronic atrial fibrillation on Coumadin PLAN: Increase carvedilol to 12.5 mg BID to aid with hypertension and fusion beats. Continue all other home cardiac medications as prescribed. update 2D echo. She had negative nuclear stress in 02/2017, no indication to repeat at this time unless symptoms persist/echo changes noted. Pacemaker functioning appropriately. No adjustments made Case to be discussed with Dr. Tse. Will follow. (Paulette Pinzon, NAVEEN) Patient was seen and examined all charts reviewed, assessment as above. Patient admitted for left arm pain, hypertensive urgency Cardiac enzymes negative x 2, recent negative stress test. Pacemaker functioning appropriately Symptoms with some positional component. ? Cervical radicular pain Will treat htn as above , review echo. Sánchez Tse MD (Sánchez TseMLaverne.)
--- NOTE | 2017-06-04 10:51 | Progress Note ---
Progress Note Date of Service Jun 04, 2017. Progress Note Pt resting comfortably in bed HTN still uncontrolled Coreg increased No further chest pain Trops x 2 sets neg Awaiting ECHO Appreciate cardiology recs, also pacer interrogation Ordered heating pad for neck and back discomfort
[2017-06-04] MEDS ORDERED: PERFLUTREN LIPID MICROSPHERE (DEFINITY) IV ONE (10:56)
--- NOTE | 2017-06-04 12:35 | ECHOCARDIOGRAM REPORT ---
*NOTICE TO RECEIVING [employer] This information is strictly Confidential and protected under [place] law. [place] law prohibits you from making any further disclosure of this information unless further disclosure is expressly permitted by the written consent of the person to whom it pertains or is authorized by law. A general authorization for the release of medical or other information is not sufficient for this purpose. Hospital accepts no responsibility if the information is made available to any other person, INCLUDING THE PATIENT. Interpretation Summary * Name: RADHA SKINNER Study Date: 06/04/2017 09:59 AM BP: 164/78 mmHg * Patient Location: C.2E\S\E206\S\1 HR: 71 * : 1935 (M/d/yyy) Gender: Female Height: 65 in * Age: 81 yrs Ethnicity: CA Weight: 220 lb * Ordering Physician: Paulette Pinzon * Performed By: Mojgan Conteh * * Reason For Study: CHEST PAIN * BSA: 2.1 m2 * -- Conclusions -- * Aortic valve sclerosis mild, without significant aortic valvular stenosis. * The left ventricle is normal in size. * There is mild concentric left ventricular hypertrophy. * No regional wall motion abnormalities noted. * Apical wall motion abnormality may reflect pacemaker activation. * Ejection Fraction = 50-55%. * There is an abnormal diastolic relaxation pattern. * There is trace tricuspid regurgitation. * There is trace mitral regurgitation. Procedure Details * A complete two-dimensional transthoracic echocardiogram was performed (2D, M-mode, Doppler and color flow Doppler). * A contrast injection of Definity was performed to improve assessment of LV function. * Contrast was injected into an intravenous site in the right arm. * One vial of Definity ultrasound contrast was diluted in normal saline to a total volume of 10 ml. A total of '4' ml of solution was administered during imaging. * Lot # [id number] of Definity utilized for procedure. * Expiration date 07/22. * The attending nurse who injected the contrast agent was RAÚL BYRNE RN. Left Ventricle * The left ventricle is normal in size. * There is mild concentric left ventricular hypertrophy. * Ejection Fraction = 50-55%. * Left ventricular systolic function is normal. * Apical wall motion abnormality may reflect pacemaker activation. * No regional wall motion abnormalities noted. Right Ventricle * The right ventricle is normal in size and function. Atria * The left atrium is moderately dilated. * The right atrium is mildly dilated. * No ASD detected; PFO is not assessed. Mitral Valve * The mitral valve anatomy is normal. * There is no mitral valve stenosis. * There is trace mitral regurgitation. Tricuspid Valve * The tricuspid valve is normal. * There is no tricuspid stenosis. * There is trace tricuspid regurgitation. Aortic Valve * The aortic valve is trileaflet. * Aortic valve sclerosis mild, without significant aortic valvular stenosis. * No hemodynamically significant valvular aortic stenosis. * No aortic regurgitation is present. Pulmonic Valve * The pulmonic valve is not well visualized. Great Vessels * The aortic root is normal size. Pericardium/Pleural * There is no pericardial effusion. Great Vessels * Normal inferior vena cava diameter and respiratory variation suggests normal central venous pressure. Left Ventricular Diastolic Function * There is an abnormal diastolic relaxation pattern. MMode 2D Measurements and Calculations IVSd 0.82 cm IVSs 1.5 cm LVIDd 5.2 cm LVIDs 3.9 cm LVPWd 1.5 cm LVPWs 2.4 cm IVS/LVPW 0.56 FS 25.8 % EDV(Teich) 130.6 ml ESV(Teich) 64.8 ml EF(Teich) 50.4 % EDV(cubed) 142.2 ml ESV(cubed) 58.0 ml EF(cubed) 59.2 % % IVS thick 79.9 % % LVPW thick 62.5 % LV mass(C)d 237.1 grams LV mass(C)dI 115.1 grams/m\S\2 LV mass(C)s 341.7 grams LV mass(C)sI 165.9 grams/m\S\2 SV(Teich) 65.9 ml SI(Teich) 32.0 ml/m\S\2 SV(cubed) 84.2 ml SI(cubed) 40.9 ml/m\S\2 ACS 1.7 cm asc Aorta Diam 3.4 cm LVAd ap4 36.0 cm\S\2 LVLd ap4 8.3 cm EDV(MOD-sp4) 130.1 ml EDV(sp4-el) 133.0 ml LVAs ap4 25.4 cm\S\2 LVLs ap4 7.4 cm ESV(MOD-sp4) 71.0 ml ESV(sp4-el) 74.1 ml EF(MOD-sp4) 45.5 % EF(sp4-el) 44.3 % LVAd ap2 36.4 cm\S\2 LVLd ap2 8.3 cm EDV(MOD-sp2) 133.2 ml EDV(sp2-el) 136.1 ml LVAs ap2 26.5 cm\S\2 LVLs ap2 8.2 cm ESV(MOD-sp2) 71.1 ml ESV(sp2-el) 72.5 ml EF(MOD-sp2) 46.7 % EF(sp2-el) 46.8 % LVLd %diff -0.13 % EDV(MOD-bp) 132.0 ml LVLs %diff 9.6 % ESV(MOD-bp) 71.0 ml EF(MOD-bp) 46.2 % SV(MOD-sp4) 59.2 ml SI(MOD-sp4) 28.7 ml/m\S\2 SV(MOD-sp2) 62.2 ml SI(MOD-sp2) 30.2 ml/m\S\2 SV(MOD-bp) 61.0 ml SI(MOD-bp) 29.6 ml/m\S\2 SV(sp4-el) 58.9 ml SI(sp4-el) 28.6 ml/m\S\2 SV(sp2-el) 63.7 ml SI(sp2-el) 30.9 ml/m\S\2 Doppler Measurements and Calculations MV E max gareth 77.8 cm/sec MV A max gareth 29.4 cm/sec MV E/A 2.6 MV dec time 0.19 sec Ao V2 max 131.0 cm/sec Ao max PG 6.9 mmHg Ao max PG (full) 3.2 mmHg LV V1 max PG 3.7 mmHg LV V1 max 95.9 cm/sec MR max gareth 393.1 cm/sec MR max PG 61.8 mmHg PA V2 max 52.3 cm/sec PA max PG 1.1 mmHg TR max gareth 253.1 cm/sec
[2017-06-04] MEDS: CARVEDILOL 6.25 MG TAB PO SCH (20:39)
[2017-06-04] MEDS ORDERED: SIMVASTATIN 20 MG TAB PO SCH (21:00)
[2017-06-04] MEDS ORDERED: WARFARIN SOD 5 MG TAB PO SCH (21:00)
[2017-06-05] MEDS ORDERED: AMLODIPINE BESYLATE 5 MG TAB PO ONE
[2017-06-05 03:28] VITALS: BP 150/71; PULSE 70; TEMP 36.5; O2SAT 97
[2017-06-05 08:00] VITALS: BP 166/92; PULSE 76; TEMP 37; O2SAT 98
[2017-06-05] MEDS: ATORVASTATIN 20 MG TAB PO SCH (08:00)
[2017-06-05] MEDS: POTASSIUM CHLORIDE 10 MEQ TABCR PO SCH (08:00)
[2017-06-05] MEDS: CARVEDILOL 6.25 MG TAB PO SCH (08:00)
[2017-06-05] MEDS: DOCUSATE SODIUM 100 MG CAP PO SCH (08:01)
[2017-06-05] MEDS: HYDROCHLOROTHIAZIDE 25 MG TAB PO SCH (08:01)
[2017-06-05] MEDS: LOSARTAN POTASSIUM 50 MG TAB PO SCH (08:01)
[2017-06-05] MEDS ORDERED: AMLODIPINE BESYLATE 5 MG TAB PO SCH (09:00)
--- NOTE | 2017-06-05 09:58 | CARDIOLOGY PROGRESS NOTE ---
DATE: 06/05/2017 DATE: 06/05/2017 The patient seen and examined. Chart, medications, telemetry reviewed. SUBJECTIVE: The patient feels improved since hospitalization. Notes no further arm pain, neck pain. Does have shortness of breath with exertion, though notes this is not acutely changed. Is ambulatory to only a small amount at home and use of walker with limitations due to chronic back pain per her description. Notes no fevers, chills or productive cough. OBJECTIVE: VITAL SIGNS: Heart rate is 70, blood pressure is 150/71, blood pressure was elevated last night though under better control this morning with initiation of amlodipine. NECK: Thick. There is no distinct jugular venous distention. LUNGS: Clear to auscultation. CARDIOVASCULAR: Irregular with paced rhythm. Telemetry reveals no arrhythmias. There is no S3 gallop. ABDOMEN: Soft, nontender. EXTREMITIES: Without cyanosis or clubbing. There is mild lymphedematous changes. There is no overt edema or volume overload. LABORATORY DATA: Troponin since admission have been negative x3. IMPRESSION: An 81-year-old female admitted with hypertensive urgency, left arm pain and discomfort clinically improved since adjustments of medical therapies, upward titration of titration of carvedilol, addition of amlodipine last evening. PLAN: Given diffuse arthralgias and complaints of chronic hydralazine usage JEZ and anti histone antibodies will be ordered. All medications currently continued as ordered. The patient will begin increasing activities in hospital. Repeat renal function and electrolytes ordered for today. MTDD
[2017-06-05 10:32] LABS: BUN/CREATININE RATIO 20.2 (10-20); CALCIUM 8.7 mg/dl (8.5-10.1); CREATININE 0.76 mg/dl (0.60-1.20); POTASSIUM 3.7 mmol/L (3.5-5.1)
[2017-06-05 12:00] VITALS: BP 138/59; PULSE 70; TEMP 36.4; O2SAT 97
--- NOTE | 2017-06-05 15:25 | DIAGNOSTIC IMAGING REPORT ---
KUB CLINICAL HISTORY: 81 years-old Female presenting with eval constipation. TECHNIQUE: Single supine view of the abdomen was obtained. COMPARISON: None. FINDINGS: Moderate stool burden predominantly in the right colon. No bowel obstruction. No gross free intraperitoneal gas. Presence of stool and bowel gas degrade evaluation of the renal shadows. Within this limitation, no evidence of renal calculi. Extensive degenerative changes of the lumbar spine. Lung bases clear. IMPRESSION: 1. Moderate stool burden predominantly in the right colon, consistent with constipation. Electronically signed by: Jeff Canas M.D. 06/05/2017 3:24 PM Dictated Date/Time: 06/05/2017 3:22 PM
[2017-06-05 15:34] VITALS: BP 135/76; PULSE 74; TEMP 36.4; O2SAT 96
[2017-06-05 15:58] VITALS: O2SAT 96
[2017-06-05] MEDS ORDERED: NRV5 PO (16:04)
[2017-06-05] MEDS ORDERED: MRLP17X PO (16:04)
[2017-06-05] MEDS ORDERED: CARV12.52 PO (16:04)
--- NOTE | 2017-06-05 16:12 | Discharge Instructions ---
Discharge Instructions Date of Service Jun 05, 2017. Admission Reason for Admission: Chest Pain, Hypertensive Urgency Discharge Discharge Diagnosis / Problem: chest pain - heart attack ruled out; elevated blood pressure - improved Discharge Goals Goal(s): Learn about illness, Diagnostic testing, Therapeutic intervention Activity Recommendations Activity Limitations: resume your previous activity (as tolerated) . Instructions / Follow-Up Instructions / Follow-Up From Dr. Arteaga - 1. High blood pressure - * please INCREASE your coreg (carvedilol) to 12.5mg twice daily; new prescription sent to [facility] * please START amlodipine 5mg once every morning; new prescription sent to [facility] * if possible please check your blood pressure in your right arm at least twice weekly to monitor your blood pressure readings 2. constipation - * please start actp-fdy-rtopizr miralax twice daily; take 1 capful mixed in 8 ounces of the beverage of your choice every morning and every evening * shoot for 1 soft bowel movement every 2-3 days * if you continue to experience constipation, excess gas, stomach cramps, abdominal pain, etc - please see Erica Aleman at the [facility] GI office in the next 2-3 weeks * they may recommend additional testing for you * if you have not had a soft bowel movement in the next 2-3 days you can take [id number]-[id number] dulcolax (by mouth) as needed in addition to the miralax 3. continue all of your other medications as previous 4. follow-up - * see Delia García this coming Thursday as scheduled * see Parminder Garcia cardiology - in the next 2-3 weeks 5. right thumb numbness - please see orthopedics, Dr. Villalta, to discuss if this is from carpal tunnel syndrome or a pinched nerve in your neck 6. Return to [facility] if - * you experience recurrent chest pain or worsening shortness of breath * you experience severe dizziness, lightheadedness, or passing out * you develop leg or arm weakness Current Hospital Diet Patient's current hospital diet: AHA Diet (Heart Healthy) Discharge Diet Recommended Diet: AHA Diet (Heart Healthy) Procedures Procedures Performed: 1. chest x-ray - no evidence of pneumonia or heart failure 2. abdominal x-ray - moderate constipation 3. pacemaker interrogation - normal pacemaker function 4. echocardiogram - normal heart function Pending Studies Studies pending at discharge: yes List of pending studies: JEZ test (blood test to see if you are having a "reaction" to hydralazine) vitamin D level INR (coumadin level) Medical Emergencies . Who to Call and When: Medical Emergencies: If at any time you feel your situation is an emergency, please call 911 immediately. . Non-Emergent Contact Non-Emergency issues call your: Primary Care Provider, [employer] Driver Operator Call Non-Emergent contact if: temperature is above 100.5, you have any medication questions . . "Provider Documentation" section prepared by Thien Arteaga. . VTE Core Measure Inpt VTE Proph given/why not?: Warfarin (Coumadin)
[2017-06-05 16:23] VITALS: BP 135/76; PULSE 74; TEMP 36.4; O2SAT 96
[2017-06-05 17:08] LABS: INR 1.6 (0.9-1.1); PROTHROMBIN TIME (PATIENT) 17.8 SECONDS (9.0-12.0)
[2017-06-06] MEDS ORDERED: ERGO500037 PO (14:28)
--- NOTE | 2017-06-06 18:06 | Progress Note ---
Progress Note Date of Service Jun 06, 2017. Progress Note time - 1800 Called and spoke with patient earlier today. Discussed labs from yesterday. INR was 1.6 last pm - recommended she take 1.5 tabs (total dose 7.5mg) of coumadin tonight then resume normal dosing schedule tomorrow. Recommended replacement of vitamin D with ergocalciferol 03613 units twice weekly x 8 weeks; script faxed to her pharmacy. sed rate and crp both normal. patient reports no recurrent left facial pain that had brought her to the hospital a few days ago. patient has f/u on Thursday of this week. Thien Arteaga MD
--- NOTE | 2017-06-06 23:46 | Discharge Summary ---
Discharge Summary Date of Service Jun 06, 2017. Discharge Summary Admission Date: Jun 04, 2017 at 01:23 Discharge Date: Jun 05, 2017 Discharge Disposition: Home Principal Diagnosis: hypertensive urgency Problems/Secondary Diagnoses: 1. Chronic atrial fibrillation 2. 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 vitamin D deficiency 4. Mild to moderate mitral regurgitation 5. Suspected sleep apnea 6. Hypertension 7. Hyperlipidemia 8. Malignant melanoma, left arm, s/p excision 9. Uterine cancer status post CORBY/BSO 2015 10. Obesity with BMI 37 11. Osteoarthritis 12. Constipation 13. fatigue - outpatient work-up recommended including consideration of sleep study 14. right thumb paresthesias - outpatient follow-up recommended Procedures: 1. echocardiogram - * Aortic valve sclerosis mild, without significant aortic valvular stenosis. * The left ventricle is normal in size. * There is mild concentric left ventricular hypertrophy. * No regional wall motion abnormalities noted. * Apical wall motion abnormality may reflect pacemaker activation. * Ejection Fraction = 50-55%. * There is an abnormal diastolic relaxation pattern. * There is trace tricuspid regurgitation. * There is trace mitral regurgitation. 2. KUB x-ray - IMPRESSION: Moderate stool burden predominantly in the right colon, consistent with constipation. 3. Chest x-ray - IMPRESSION: Stable cardiomegaly. No acute findings. 4. Pacemaker Interrogation - Normal function with adequate battery life. Consultations: cardiology - Sánchez Tse MD Medication Reconciliation New Medications: Ergocalciferol (Vitamin D 98333 Unit) 50,000 Unit Cap 1 CAP PO twice a week, #8 CAP 1 Refill Amlodipine Besylate (Amlodipine Besylate) 5 Mg Tab 5 MG PO QAM, #30 TAB 5 Refills for high blood pressure Polyethylene (Miralax) 17 Gm Pow 17 GM PO BID, #1 BTL 5 Refills Changed Medications: Carvedilol (Coreg) 12.5 Mg Tab 1 TAB PO BID, #60 TAB 5 Refills (Changed from: Carvedilol 6.25 Mg Tab 6.25 Mg PO BID #60 TAB Ref 6) Continued Medications: Hydralazine HCl (Hydralazine HCl) 50 Mg Tab 50 MG PO TID, #90 TAB 6 Refills Hydrochlorothiazide (Hydrochlorothiazide) 25 Mg Tab 25 MG PO DAILY Losartan Potassium (Cozaar) 100 Mg Tab 100 MG PO QAM, TAB Potassium Chloride (Potassium Chloride Sr) 10 Meq Tab 10 MEQ PO DAILY Simvastatin (Zocor) 20 Mg Tab 20 MG PO QPM, TAB Warfarin Sod (Jantoven) 5 Mg Tab 1.5 TAB PO DIRECTED, TAB TAKE 1.5 TABLETS DAILY EVERY M// Warfarin Sodium (Coumadin) 5 Mg Tab 5 MG PO HS TAKE 5 MG DAILY EVERY T//THU/SUN Discontinued Medications: Docusate Sodium (Docusate Sodium) 100 Mg Cap 1 CAP PO BID Discharge Exam Physical Exam: General Appearance: no apparent distress, + obese ENT: pharynx normal Neck: no JVD Respiratory/Chest: lungs clear, no respiratory distress, no accessory muscle use Cardiovascular: regular rate, rhythm, no gallop, normal peripheral pulses, + systolic murmur (2/6 LLSB) Abdomen / GI: normal bowel sounds, non tender, soft, no organomegaly Extremities: no pedal edema, + pertinent finding (left arm - large scar over the forearm; there is lymphedema of the left arm as well ) Neurologic/Psychiatric: no motor/sensory deficits, alert, oriented x 3 Skin: no rash Hospital Course HISTORY OF PRESENT ILLNESS: Ms. Tobin is an 81 year old female who is well-known to the [facility] practice, having been last evaluated by Parminder Lowery PA-C in April 2017. Her history is significant for chronic afib, tachybrady syndrome s/p single chamber pacemaker in May 2016, chronic coumadin usage, moderate MR, hypertension, dyslipidemia, malignant melanoma of her left arm, uterine cancer, and obesity. She was hospitalized in Nov 2016 for UTI. EKG during that admission demonstrated new inferolateral T wave changes. She was found to have pseudofusion and fusion beats and therefore her pacemaker was reprogrammed to VVI with lower rate of 70 bpm. Pharmacologic stress test was negative for inducible ischemia in February 2017. The patient states she was in her usual state of health yesterday and last evening. She was reading a book and developed a flushing sensation with dizziness, nausea, and abdominal discomfort. She noted mild chest pain at the time. She came to ER for evaluation. Her BP was found to be significantly elevated. Patient states she has been compliant with medications. Upon arrival in the ER she also noted left arm and chest pain which improved with nitroglycerin. BP improved with IV hydralazine. She was subsequently started on nitro ointment. HOSPITAL COURSE: Following admission the patient's blood pressure gradually improved with titration of her coreg as well as adding amlodipine. Serial cardiac enzymes were normal. Telemetry failed to demonstrate any significant dysrhythmia; she was largely paced during her stay. She was seen in consult by [facility] and underwent echocardiogram showing preserved ejection fraction and normal wall motion. Repeat stress test was deferred in light of her normal stress test in February of this year. All presenting symptoms gradually improved/resolved during her stay. The exact etiology of her presentation was uncertain but perhaps related to her markedly elevated blood pressure. In addition to the above the patient complained of moderate-severe constipation dating back at least 1-2 years. KUB x-ray did in fact show moderate constipation. She was started on a bowel regimen. Last colonoscopy was in [address] Reinaldo Perez. Follow-up with GI was advised if her constipation problem persisted. The patient also complained of some transient arthralgias and myalgias. In light of her hydralazine use an JEZ and anti-histone antibody were sent prior to discharge to ensure she was not having a lupus-like reaction to the hydralazine. Sed rate and crp were normal. Vitamin D level was low at 10 and she was given a prescription for 8 weeks of ergocalciferol. Lastly, the patient complained of fatigue during her stay. DOLORES has been suspected in the past and an outpatient sleep study should be recommended to the patient once again. Total Time Spent: Greater than 30 minutes This includes examination of the patient, discharge planning, medication reconciliation, and communication with other providers. Discharge Instructions Please refer to the electronic Patient Visit Report (Discharge Instructions) for additional information. Follow-Up 1. CLEVE Palomo - 06/09/2017 2. GILL Marshall - [facility] - within 2-3 weeks Additional Copies To Sánchez Tse M.D.; Parminder Lowery PA-C; Delia García, [email or web address]
[2017-06-10 13:39] LABS: ANTI-HISTONE AB 1.4 U (<1.0)
== END 2017-06-05 17:12 | disposition home or self-care (01) ==
LOC: C.EDB 23:05 → C.2E 06-04 01:23 → ENRESERV 06-04 01:35
PROVIDERS: ADMIT Internal Medicine; ATTEND Internal Medicine
DX: R07.89 Other chest pain (principal); I16.1 Hypertensive emergency; I48.91 Unspecified atrial fibrillation; I34.0 Nonrheumatic mitral (valve) insufficiency; R53.1 Weakness; E78.5 Hyperlipidemia, unspecified; R94.31 Abnormal electrocardiogram [ECG] [EKG]; E55.9 Vitamin D deficiency, unspecified; E66.01 Morbid (severe) obesity due to excess calories; K59.00 Constipation, unspecified; Z68.37 Body mass index [BMI] 37.0-37.9, adult; R20.9 Unspecified disturbances of skin sensation; M19.90 Unspecified osteoarthritis, unspecified site; Z79.01 Long term (current) use of anticoagulants; Z79.899 Other long term (current) drug therapy; Z95.0 Presence of cardiac pacemaker

== ENCOUNTER 2017-06-09 11:19 | Emergency (ER) | payer OTHER, MEDICARE ==
[~2017-06-09] VITALS: Ht 165.1 cm; Wt 101.7 kg
[~2017-06-09 11:19] MED LIST changes: -ASPEC81 PO; +CARV12.52 PO; -CLC100 PO; -CRG625 PO; +ERGO500037 PO; +HYDR25TA5 PO; -HYDR50TA3 PO; +MRLP17X PO; +NRV5 PO; -POTA10CA28 PO; +POTA10TA33 PO; -ZTHM250 PO
[2017-06-09 11:36] VITALS: TEMP 36.6
[2017-06-09 12:29] LABS: BASO % 0.4 %; BASO ABS # 0.03 K/uL (0-0.2); COMPLETE YES; HEMATOCRIT 42.7 % (37-47); IG% 0.3 %; LYMPH % 16.7 %; LYMPH ABS # 1.13 K/uL (1.2-3.4); MEAN CELL VOLUME 90.1 fL (80-100); MEAN CORPUSCULAR HEMOGLOBIN 31.2 pg (25-34); MEAN CORPUSCULAR HGB CONC 34.7 g/dl (32-36); MEAN PLATELET VOLUME 10.7 fL (7.4-10.4); NEUT % 68.6 %; PLATELET COUNT 217 K/uL (130-400); RED BLOOD COUNT 4.74 M/uL (4.2-5.4); WHITE BLOOD COUNT 6.76 K/uL (4.8-10.8)
[2017-06-09 12:39] VITALS: O2SAT 95; Ht 165.1 cm; Wt 101.7 kg
[2017-06-09] MEDS ORDERED: AMLO-110 PO (12:40)
[2017-06-09] MEDS ORDERED: CARV12.52 PO (12:40)
[2017-06-09] MEDS ORDERED: POLY335019 PO (12:40)
[2017-06-09] MEDS ORDERED: HYDR-4717 PO (12:40)
[2017-06-09 12:50] LABS: ALT/SGPT 20 U/L (12-78); BLOOD UREA NITROGEN 16 mg/dl (7-18); BUN/CREATININE RATIO 18.4 (10-20); CARBON DIOXIDE 26 mmol/L (21-32); CHLORIDE 102 mmol/L (98-107); CREATININE 0.86 mg/dl (0.60-1.20); GLUCOSE 118 mg/dl (70-99); SODIUM 134 mmol/L (136-145)
[2017-06-09 13:00] LABS: ALKALINE PHOSPHATASE 60 U/L (45-117)
--- NOTE | 2017-06-09 13:03 | DIAGNOSTIC IMAGING REPORT ---
SINGLE VIEW CHEST CLINICAL HISTORY: Generalized weakness. FINDINGS: An AP, portable, upright chest radiograph is compared to study dated 06/03/2017. The examination is degraded by portable technique and patient rotation. A single lead cardiac pacemaker is unchanged in position and partially obscures the right mid chest. The heart is enlarged and there is atherosclerotic calcification of the thoracic aorta. The pulmonary vasculature is noncongested. Left basilar atelectasis is identified. The lungs and pleural spaces are otherwise clear. No pneumothorax is seen. The skeletal structures are osteopenic. The bony thorax is grossly intact. Surgical clips are noted in the left axilla. IMPRESSION: 1. Cardiomegaly and cardiac pacemaker. There is no radiographic evidence of congestive failure. 2. No airspace consolidation or large pleural effusion is identified. Electronically signed by: Alexandro Hansen M.D. 06/09/2017 12:46 PM Dictated Date/Time: 06/09/2017 12:45 PM
--- NOTE | 2017-06-09 13:15 | DIAGNOSTIC IMAGING REPORT ---
ABDOMEN 2 VIEWS CLINICAL HISTORY: Constipation versus obstruction. COMPARISON STUDY: [facility] June 05, 2017. FINDINGS: Right subclavian pacer is incidentally noted. There is no free air on the upright projections. The bowel gas pattern is normal. There is a moderate amount stool within the adjacent colon and transverse colon with small amount of stool within the descending colon, sigmoid colon and rectum. IMPRESSION: 1. No free air or evidence of bowel obstruction. 2. Mild to moderate amount stool within the colon. Electronically signed by: Johnson Damico M.D. 06/09/2017 1:14 PM Dictated Date/Time: 06/09/2017 1:12 PM
[2017-06-09 13:24] LABS: URINE APPEARANCE CLEAR (CLEAR); URINE BILIRUBIN NEG (NEG); URINE COLOR DK YELLOW; URINE EPITHELIAL CELL AUTO 20-30 /lpf (0-5); URINE NITRITE NEG (NEG); URINE SPECIFIC GRAVITY 1.023 (1.000-1.030); UROBILINOGEN NEG (NEG)
--- NOTE | 2017-06-09 13:36 | DIAGNOSTIC IMAGING REPORT ---
CT OF THE HEAD WITHOUT CONTRAST CLINICAL HISTORY: Weakness. COMPARISON STUDY: Head CT January 13, 2015. CT DOSE: 614.27 mGy.cm TECHNIQUE: Helical axial images of the head were obtained without IV contrast. Automated exposure control was utilized for the study. A dose lowering technique was utilized adhering to the principles of ALARA. FINDINGS: No acute intracranial hemorrhage, midline shift or mass effect is present. Ventricular system is stable. Basilar cisterns are patent. There are no extra axial collections. White matter hypodensity suggests small vessel disease. There are no findings to suggest acute dural sinus thrombosis or acute territorial infarct. There are no significant calvarial abnormalities. Visualized portions of the mastoid air cells are clear. There is mild mucosal thickening of the sinuses. IMPRESSION: No acute intracranial findings. Electronically signed by: Johnson Damico M.D. 06/09/2017 1:35 PM Dictated Date/Time: 06/09/2017 1:32 PM
[2017-06-09 13:42] LABS: MANUAL MICROSCOPIC REQUIRED? NO; REVIEW REQ? YES
[2017-06-09 13:56] LABS: URINE MUCUS PRESENT (NONE PRSENT)
[2017-06-09] MEDS ORDERED: CEPHALEXIN MONOHYDRATE 250 MG CAP PO ONE (15:00)
[2017-06-09] MEDS ORDERED: CEPH500C PO (16:13)
[2017-06-09 16:38] VITALS: BP 151/84; PULSE 72; O2SAT 97
--- NOTE | 2017-06-09 17:19 | EMERGENCY ROOM VISIT NOTE ---
History Report prepared by Luli: Sweetie Raya Under the Supervision of: Dr. Tj Rascon D.O. First contact with patient: 12:04 Chief Complaint: NAUSEA Stated Complaint: UPSET STOMACH Nursing Triage Summary: patient states "I was at the [facility], Im not feeling well. They think they are bringing my blood pressure down to quickly. I am sick to my stomach. feeling weak and dizzy." recently admitted for hypertensive crisis History of Present Illness The patient is a 81 year old female who presents to the Emergency Room with complaints of constant nausea for the past week. The patient states that she has just felt generally unwell for the past week. She has a "weird feeling" in her head. She reports nausea, lightheadedness, dizziness, and constipation. Her last bowel movement was 3 days ago. The patient denies feeling like the room is spinning and states that she feels like she is going to pass out when she becomes dizzy. She is currently not dizzy or lightheaded.. This comes randomly and does not seem to be worse with changing positions. She was evaluated in the ED last week for these symptoms. She had a negative work-up at that time and discharged home. She was encouraged to follow-up with her PCP and cardiology. The patient had an appointment with her PCP today and was sent back to the ED for further evaluation. Pt denies change in vision, fevers, chest pain, shortness of breath, vomiting, diarrhea, pain with urination, and melena. She is on warfarin. Source of History: patient Onset: 1 week ago Position: other (global) Quality: other (nausea) Timing: constant Associated Symptoms: No fevers, No chest pain, No SOB, No vomiting, No melena, No diarrhea, No urinary symptoms Note: Pt notes lightheadedness, dizziness, and constipation. Review of Systems See HPI for pertinent positives & negatives. A total of 10 systems reviewed and were otherwise negative. Past Medical & Surgical Medical Problems: (1) Arthritis (2) Atrial fibrillation (3) Benign hypertension (4) Bronchitis (5) Cardiac ischemia (6) Chest pain (7) Dilation and curettage (8) Heart disease (9) Hypertensive urgency (10) Melanoma (11) Symptomatic bradycardia (12) Weakness Surgical Problems: (1) H/O lumpectomy (2) H/O: hysterectomy Family History Cancer Gallbladder disease Heart disease Hypertension Kidney disease Kidney stones Social History Smoking Status: Never Smoker Alcohol Use: none Drug Use: none Marital Status: Housing Status: lives with family Occupation Status: retired Current/Historical Medications Scheduled Amlodipine (Norvasc), 5 MG PO QAM Carvedilol (Coreg), 12.5 MG PO BID Cephalexin Monohydrate (Keflex), 1 CAP PO QID Ergocalciferol (Vitamin D 98691 Unit), 1 CAP PO twice a week Hydralazine Hcl (Apresoline), 50 MG PO TID Hydrochlorothiazide (Hydrochlorothiazide), 25 MG PO DAILY Losartan Potassium (Cozaar), 100 MG PO QAM Polyethylene Glycol 3350 (Miralax), 17 GM PO BID Potassium Chloride (Potassium Chloride Sr), 10 MEQ PO DAILY Simvastatin (Zocor), 20 MG PO QPM Warfarin Sod (Jantoven), 1.5 TAB PO DIRECTED Warfarin Sodium (Coumadin), 5 MG PO HS Allergies Coded Allergies: Lisinopril (Verified Adverse Reaction, Intermediate, COUGH, 06/09/17) Oxycodone (Verified Adverse Reaction, Unknown, DIZZINESS Lightheaded, 06/09/17) Physical Exam Vital Signs Date Time Temp Pulse Resp B/P (MAP) Pulse Ox O2 Delivery O2 Flow Rate FiO2 06/09/17 16:38 72 18 151/84 97 06/09/17 14:08 70 16 142/66 94 Room Air 06/09/17 13:50 70 06/09/17 12:49 70 142/83 77 137/81 74 148/68 06/09/17 12:39 95 Room Air 06/09/17 12:32 70 20 149/80 95 Room Air 06/09/17 11:54 71 06/09/17 11:36 36.6 74 18 128/76 94 Room Air Physical Exam GENERAL: alert, sitting up in bed, disheveled appearing, well appearing, well nourished, no distress, non-toxic EYE EXAM: normal conjunctiva, PERRL and EOM's intact OROPHARYNX: no exudate, no erythema, lips, buccal mucosa, and tongue normal and mucous membranes are moist NECK: supple, no nuchal rigidity, no adenopathy, non-tender LUNGS: Clear to auscultation. Normal chest wall mechanics HEART: Distant, no murmurs, S1 normal and S2 normal CHEST: Pacemaker located along right chest wall ABDOMEN: abdomen soft, non-tender, normo-active bowel sounds, no masses, no rebound or guarding. BACK: Back is symmetrical on inspection and there is no deformity, no midline tenderness, no CVA tenderness. SKIN: no rashes and no bruising UPPER EXTREMITIES: upper extremities are grossly normal. LOWER EXTREMITIES: No pitting edema. NEURO EXAM: Normal sensorium, cranial nerves II-XII intact, normal speech, no weakness of arms, no weakness of legs. No drift. Finger to nose intact. Gross sensation intact. Medical Decision & Procedures ER Provider Diagnostic Interpretation: Radiology results as stated below per my review and the radiologist's interpretation: CT OF THE HEAD WITHOUT CONTRAST CLINICAL HISTORY: Weakness. COMPARISON STUDY: Head CT January 13, 2015. CT DOSE: 614.27 mGy.cm TECHNIQUE: Helical axial images of the head were obtained without IV contrast. Automated exposure control was utilized for the study. A dose lowering technique was utilized adhering to the principles of ALARA. FINDINGS: No acute intracranial hemorrhage, midline shift or mass effect is present. Ventricular system is stable. Basilar cisterns are patent. There are no extra axial collections. White matter hypodensity suggests small vessel disease. There are no findings to suggest acute dural sinus thrombosis or acute territorial infarct. There are no significant calvarial abnormalities. Visualized portions of the mastoid air cells are clear. There is mild mucosal thickening of the sinuses. IMPRESSION: No acute intracranial findings. Electronically signed by: Johnson Damico M.D. 06/09/2017 1:35 PM Dictated Date/Time: 06/09/2017 1:32 PM SINGLE VIEW CHEST CLINICAL HISTORY: Generalized weakness. FINDINGS: An AP, portable, upright chest radiograph is compared to study dated 06/03/2017. The examination is degraded by portable technique and patient rotation. A single lead cardiac pacemaker is unchanged in position and partially obscures the right mid chest. The heart is enlarged and there is atherosclerotic calcification of the thoracic aorta. The pulmonary vasculature is noncongested. Left basilar atelectasis is identified. The lungs and pleural spaces are otherwise clear. No pneumothorax is seen. The skeletal structures are osteopenic. The bony thorax is grossly intact. Surgical clips are noted in the left axilla. IMPRESSION: 1. Cardiomegaly and cardiac pacemaker. There is no radiographic evidence of congestive failure. 2. No airspace consolidation or large pleural effusion is identified. Electronically signed by: Alexandro Hansen M.D. 06/09/2017 12:46 PM Dictated Date/Time: 06/09/2017 12:45 PM ABDOMEN 2 VIEWS CLINICAL HISTORY: Constipation versus obstruction. COMPARISON STUDY: [facility] June 05, 2017. FINDINGS: Right subclavian pacer is incidentally noted. There is no free air on the upright projections. The bowel gas pattern is normal. There is a moderate amount stool within the adjacent colon and transverse colon with small amount of stool within the descending colon, sigmoid colon and rectum. IMPRESSION: 1. No free air or evidence of bowel obstruction. 2. Mild to moderate amount stool within the colon. Electronically signed by: Johnson Damico M.D. 06/09/2017 1:14 PM Dictated Date/Time: 06/09/2017 1:12 PM Laboratory Results 06/09/17 12:00 Red Blood Count 4.74, Mean Corpuscular Volume 90.1, Mean Corpuscular Hemoglobin 31.2, Mean Corpuscular Hemoglobin Concent 34.7, Mean Platelet Volume 10.7, Neutrophils (%) (Auto) 68.6, Lymphocytes (%) (Auto) 16.7, Monocytes (%) (Auto) 13.0, Eosinophils (%) (Auto) 1.0, Basophils (%) (Auto) 0.4, Neutrophils # (Auto ) 4.63, Lymphocytes # (Auto) 1.13, Monocytes # (Auto) 0.88, Eosinophils # (Auto ) 0.07, Basophils # (Auto) 0.03 06/09/17 12:00 06/09/17 12:30 Test 06/09/17 12:00 06/09/17 12:30 06/09/17 12:37 06/09/17 13:05 White Blood Count 6.76 K/uL (4.8-10.8) Red Blood Count 4.74 M/uL (4.2-5.4) Hemoglobin 14.8 g/dL (12.0-16.0) Hematocrit 42.7 % (37-47) Mean Corpuscular Volume 90.1 fL (80-100) Mean Corpuscular Hemoglobin 31.2 pg (25-34) Mean Corpuscular Hemoglobin Concent 34.7 g/dl (32-36) Platelet Count 217 K/uL (130-400) Mean Platelet Volume 10.7 fL (7.4-10.4) Neutrophils (%) (Auto) 68.6 % Lymphocytes (%) (Auto) 16.7 % Monocytes (%) (Auto) 13.0 % Eosinophils (%) (Auto) 1.0 % Basophils (%) (Auto) 0.4 % Neutrophils # (Auto) 4.63 K/uL (1.4-6.5) Lymphocytes # (Auto) 1.13 K/uL (1.2-3.4) Monocytes # (Auto) 0.88 K/uL (0.11-0.59) Eosinophils # (Auto) 0.07 K/uL (0-0.5) Basophils # (Auto) 0.03 K/uL (0-0.2) RDW Standard Deviation 46.2 fL (36.4-46.3) RDW Coefficient of Variation 14.0 % (11.5-14.5) Immature Granulocyte % (Auto) 0.3 % Immature Granulocyte # (Auto) 0.02 K/uL (0.00-0.02) Anion Gap 6.0 mmol/L (3-11) Est Creatinine Clear Calc Drug Dose 60.6 ml/min Estimated GFR () 73.4 Estimated GFR (Non- 63.4 BUN/Creatinine Ratio 18.4 (10-20) Calcium Level 9.0 mg/dl (8.5-10.1) Total Bilirubin 0.6 mg/dl (0.2-1) Alanine Aminotransferase (ALT/SGPT) 20 U/L (12-78) Alkaline Phosphatase 60 U/L (45-117) Troponin I < 0.015 ng/ml (0-0.045) Total Protein 6.8 gm/dl (6.4-8.2) Albumin 3.2 gm/dl (3.4-5.0) Lipase 143 U/L (73-393) Thyroid Stimulating Hormone (TSH) 3.700 uIu/ml (0.300-4.500) Direct Bilirubin 0.1 mg/dl (0-0.2) Aspartate Amino Transf (AST/SGOT) 13 U/L (15-37) Bedside Glucose 106 mg/dl (70-90) Urine Color DK YELLOW Urine Appearance CLEAR (CLEAR) Urine pH 7.0 (4.5-7.5) Urine Specific [place] 1.023 (1.000-1.030) Urine Protein TRACE (NEG) Urine Glucose (UA) NEG (NEG) Urine Ketones NEG (NEG) Urine Occult Blood TRACE (NEG) Urine Nitrite NEG (NEG) Urine Bilirubin NEG (NEG) Urine Urobilinogen NEG (NEG) Urine Leukocyte Esterase SMALL (NEG) Urine WBC (Auto) 5-10 /hpf (0-5) Urine RBC (Auto) 10-30 /hpf (0-4) Urine Hyaline Casts (Auto) 5-10 /lpf (0-5) Urine Epithelial Cells (Auto) 20-30 /lpf (0-5) Urine Bacteria (Auto) NEG (NEG) Urine Pathogenic Casts See comments /lpf (0) Urine Mucus PRESENT (NONE PRSENT) Laboratory results per my review. Medications Administered Medications (Trade) Dose Ordered Sig/Braulio Route Start Time Stop Time Status Last Admin Dose Admin Cephalexin Monohydrate (Keflex Cap) 500 mg NOW ONCE PO 06/09/17 15:00 06/09/17 15:01 DC 06/09/17 15:03 500 MG ECG Indication: nausea Rate (beats per minute): 70 Rhythm: other (ventricular paced ) Findings: LBBB, left axis deviation Comparison ECG Date: June 03 2017 Change: no significant change ED Course ED COURSE: Vital signs were reviewed and showed hypertensive. The patients medical record was reviewed The above diagnostic studies were performed and reviewed. ED treatments and interventions as stated above. 1204: The patient was evaluated in room B11A. A complete history and physical examination was performed. 1226: I reassessed the patient and she is going to CT. 1333: I updated the patient on her results and treatment plan. 1451: The patient is resting comfortably. 1500: Keflex cap 500 mg PO 1541: [employer] is at the bedside interrogating the patient's pacemaker. 1611: Upon reevaluation, the patient is feeling better. I discussed my findings with the patient and she understands and agrees with the treatment plan. Based on the patients age, coexisting illnesses, exam and lab findings the decision to treat as an outpatient was made. The patient remained stable while under my care. The patient appeared well at the time of discharge. Medical Decision Differential diagnosis includes etiologies such as benign positional vertigo, dehydration, hypovolemia, anemia, tumor, infection, hypoglycemia, electrolyte abnormalities, cardiac sources, intracerebral event, toxicologic, neurologic, as well as others were entertained. Patient is an 81-year-old female that presents to the ER for dizziness/ lightheadedness which has been coming going for the past 10 days. She cannot qualify the feeling that she has. She just points to the left side of her head and notes that it does not feel right. She has no focal deficit. She notes that this is why she was admitted last time she was here. Upon review of her chart she is admitted for hypertensive emergency. Echo was unremarkable. Last stress was in February and was negative. Pacemaker was interrogated while she was here previously and was unremarkable as well. Pacemaker interrogated today shows no acute arrhythmia. The patient is completely neurologically intact. CT head was negative. CBC able BMP, LFTs, bilirubin and troponin were negative. TSH is normal. No chest pain or shortness of breath. UA was contaminated with multiple epithelial cells however cannot be certain there is no UTI. She was given a dose Keflex. Patient actually no symptoms while in the ER. She was discharged to follow-up with her primary care doctor. Discussed with Pt concerning signs and symptoms to watch out for. Pt was instructed to follow up with their PCP and discussed with the patient their option to return to the ED at anytime for persistent or worsening symptoms. The appropriate anticipatory guidance and out-patient management, including indications for return to the emergency department, were explained at length to the patient and understood. Medication Reconcilliation Current Medication List: was personally reviewed by me Blood Pressure Screening Patient's blood pressure: Elevated blood pressure Blood pressure disposition: Elevated BP felt to be situational Impression Primary Impression: Dizzy Additional Impressions: Weak UTI (urinary tract infection) Scribe Attestation The scribe's documentation has been prepared under my direction and personally reviewed by me in its entirety. I confirm that the note above accurately reflects all work, treatment, procedures, and medical decision making performed by me. Departure Information Dispostion Home / Self-Care Prescriptions Cephalexin Monohydrate (Keflex) 500 Mg Cap 1 CAP PO QID for 10 Days, #40 CAP Prov: Tj Rascon, DO 06/09/17 Referrals Delia García C.R.N.P (PCP) Forms HOME CARE DOCUMENTATION FORM, IMPORTANT VISIT INFORMATION Patient Instructions ED Dizziness UKO, ED UTI Cystitis Female, My [facility] Additional Instructions Please follow up with your primary care doctor with in the next 24 hours. Any worsening of your symptoms, please return to the ED immediately. This includes any fevers greater than 100.4, worsening pain, chest pain, shortness breath, persistent nausea, vomiting, unable to eat or drink, or any other concerning signs or symptoms from your standpoint. For your constipation please take 250 g of MiraLAX and mix with 64 ounces of Gatorade. Please drink 8 ounces every 15-30 minutes until you have a bowel movement. This regimen can be repeated once. Problem Qualifiers
== END 2017-06-09 16:40 | disposition home or self-care (01) ==
LOC: C.EDB 11:20
DX: N39.0 Urinary tract infection, site not specified (principal); M19.90 Unspecified osteoarthritis, unspecified site; I48.91 Unspecified atrial fibrillation; I10 Essential (primary) hypertension; Z85.820 Personal history of malignant melanoma of skin; Z90.710 Acquired absence of both cervix and uterus; Z79.899 Other long term (current) drug therapy; Z79.01 Long term (current) use of anticoagulants; Z95.0 Presence of cardiac pacemaker; Z80.9 Family history of malignant neoplasm, unspecified; Z82.49 Family history of ischemic heart disease and other diseases of the circulatory system; Z84.1 Family history of disorders of kidney and ureter

== ENCOUNTER → 2017-06-23 | Outpatient (CLI) | payer OTHER, MEDICARE ==
[~2017-06-23] MED LIST changes: +AMLO-110 PO; -APR50 PO; +HYDR-4717 PO; -MRLP17X PO; -NRV5 PO; +OPTIRAY 320 IV PRN; +POLY335019 PO
--- NOTE | 2017-06-23 16:39 | DIAGNOSTIC IMAGING REPORT ---
CT SCAN OF THE ABDOMEN AND PELVIS WITH IV CONTRAST CLINICAL HISTORY: Nausea and vomiting. Generalized abdominal pain. COMPARISON STUDY: Abdominal radiographs dated 06/09/2017. TECHNIQUE: Following the IV administration of 116 cc of Optiray 320, CT scan of the abdomen and pelvis is performed from the lung bases to the proximal femora. Images are reviewed in the axial, sagittal, and coronal planes. IV contrast was administered without complication. A dose lowering technique was utilized adhering to the principles of ALARA. CT DOSE: 844.42 mGy.cm FINDINGS: Lung bases: The heart is enlarged and without pericardial effusion. A pacemaker lead is noted. The coronary arteries are calcified. A tiny hiatal hernia is identified. The lung bases are clear. Liver: The contrast-enhanced liver is normal in size, contour, and attenuation. There is no intrahepatic biliary ductal dilatation. The hepatic veins and portal veins are patent. There is an 8 mm fat attenuation lesion in the right lobe of the liver seen on image #118, likely representing a tiny lipoma. Gallbladder: Unremarkable. Spleen: Normal in size and attenuation. There are small calcified splenic granulomas. Pancreas: Unremarkable. Adrenal glands: Unremarkable. Kidneys: The contrast enhanced kidneys are atrophic and without hydronephrosis. Small foci of cortical scarring are noted in both kidneys. The kidneys enhance symmetrically. Abdominal vasculature: The abdominal aorta is normal in course and caliber noting advanced atherosclerotic calcification. Bowel: A tiny duodenal diverticulum is observed. No bowel obstruction is seen. There is mild colonic diverticulosis without CT evidence of acute diverticulitis. The appendix is well-visualized and normal. Peritoneum: There is no intraperitoneal free air or abdominal ascites. There is evidence of previous ventral hernia repair. Lymphadenopathy: None. Pelvic viscera: The bladder is decompressed and grossly unremarkable. The uterus is surgically absent. No adnexal lesion is seen. Skeletal structures: The skeletal structures are osteopenic. There is moderate to advanced lumbosacral spondylosis and scoliosis. Degenerative change is also seen in the sacroiliac joints. No lytic or blastic lesions are seen. IMPRESSION: 1. There are no acute infectious or inflammatory findings in the abdomen or pelvis. 2. No bowel obstruction is seen. 3. There is mild colonic diverticulosis without CT evidence of acute diverticulitis. 4. Cardiomegaly. 5. Additional findings as above. Electronically signed by: Alexandro Hansen M.D. 06/23/2017 4:37 PM Dictated Date/Time: 06/23/2017 4:32 PM
== END | disposition home or self-care (01) ==
LOC: C.CTS 13:23
PROVIDERS: ATTEND Nurse Practitioner
DX: R11.2 Nausea with vomiting, unspecified (principal); R10.9 Unspecified abdominal pain; R63.0 Anorexia

== ENCOUNTER → 2017-08-14 | Outpatient (CLI) | payer OTHER, MEDICARE ==
[~2017-08-14] MED LIST changes: -OPTIRAY 320 IV PRN
[2017-08-14 17:39] LABS: BLOOD UREA NITROGEN 15 mg/dl (7-18); BUN/CREATININE RATIO 16.9 (10-20); CALCIUM 8.5 mg/dl (8.5-10.1); CARBON DIOXIDE 27 mmol/L (21-32); CHLORIDE 103 mmol/L (98-107); GLUCOSE 111 mg/dl (70-99); POTASSIUM 4.1 mmol/L (3.5-5.1); SODIUM 136 mmol/L (136-145)
== END | disposition home or self-care (01) ==
LOC: C.LABPVFM 13:11
PROVIDERS: ATTEND Nurse Practitioner
DX: E87.6 Hypokalemia (principal); I10 Essential (primary) hypertension

== ENCOUNTER → 2017-11-23 | Outpatient (CLI) | payer OTHER, MEDICARE ==
[2017-11-24 06:31] LABS: HEMOGLOBIN A1C 5.7 % (4.5-5.6)
== END ==
LOC: C.LABPVFM 13:47
PROVIDERS: ATTEND Physician Assistant
DX: R94.6 Abnormal results of thyroid function studies (principal); I10 Essential (primary) hypertension; M54.2 Cervicalgia; R73.01 Impaired fasting glucose

== ENCOUNTER 2019-04-16 22:26 | Observation (INO) ==
[2019-04-16 23:04] LABS: Basophils # (auto) 0.02 K/uL (0-0.2); Basophils % (auto) 0.3 %; Eosinophils # (auto) 0.08 K/uL (0-0.5); Eosinophils % (auto) 1.1 %; Hematocrit (blood only) 42.4 % (37-47); Hemoglobin 14.5 g/dL (12.0-16.0); Immature Granulocytes # (auto) 0.02 K/uL (0.00-0.02); Immature Granulocytes % (auto) 0.3 %; Lymphocytes # (auto) 1.02 K/uL (1.2-3.4); Lymphocytes % (auto) 13.7 %; Mean Corpuscular Hgb Conc 34.2 g/dL (32-36); Mean Corpuscular Volume 90.6 fL (80-100); Mean Platelet Volume 10.1 fL (7.4-10.4); Monocytes # (auto) 0.86 K/uL (0.11-0.59); Monocytes % (auto) 11.6 %; Neutrophils # (auto) 5.42 K/uL (1.4-6.5); Platelet Count 239 K/uL (130-400); RDW Coefficient of Variation 13.5 % (11.5-14.5); RDW Standard Deviation 44.7 fL (36.4-46.3); Red Blood Count 4.68 M/uL (4.2-5.4); White Blood Count 7.42 K/uL (4.8-10.8)
[2019-04-16 23:22] LABS: INR 2.5 (0.9-1.1); Partial Thromboplastin Ratio 1.4; Partial Thromboplastin Time 36.8 Seconds (21.0-31.0)
[2019-04-16 23:30] LABS: Alanine Aminotransferase 23 U/L (12-78); Albumin Level 3.6 gm/dl (3.4-5.0); Aspartate Aminotransferase 13 U/L (15-37); BUN Creatinine Ratio 16.4 (10-20); Blood Urea Nitrogen 18 mg/dl (7-18); Carbon Dioxide 28 mmol/L (21-32); Chloride 98 mmol/L (98-107); Est GFR (Non-African American) 47.4; Glucose 141 mg/dl (70-99); Potassium 3.9 mmol/L (3.5-5.1); Sodium 134 mmol/L (136-145)
[2019-04-16 23:32] LABS: Albumin Globulin Ratio 0.9 (0.9-2); Alkaline Phosphatase 74 U/L (45-117); Bilirubin,Total 0.3 mg/dl (0.2-1); Globulin 3.8 gm/dl (2.5-4.0); Total Protein 7.4 gm/dl (6.4-8.2)
[2019-04-17] MEDS ORDERED: IOVERSOL 100ml IV PRN (00:25)
[2019-04-17] MEDS ORDERED: SODIUM CHLORIDE 0.9% 500 ML IV ONE (02:02)
--- NOTE | 2019-04-17 02:22 | Emergency Department Note ---
Entered by Ramy Corral acting as a scribe for History of Present Illness General Chief complaint: Rectal Bleed Stated complaint: RECTAL BLEED Source: patient and RN notes reviewed Limitations: no limitations History of Present Illness Onset (ago): hour(s) 2 Location: buttocks Pain Consistency: + intermittent Maximum Pain Intensity: 3 Quality: + other ("stomach feels upset") Associated symptoms: + denies other symptoms (diarrhea); no nausea/vomiting The patient is a 83 white female w/ PMHx A-Fib, arthritis, and HTN who presents to the ED w/ CC of intermittent rectal bleeding beginning 2 hours ago. The patient states she went to go to urinate and noticed blood on her underwear after she had a bowel movement. She states she felt fine all day until then.. She notes she currently feels dizzy. Nursing states when the patient went to the restroom in the ED there was blood on the wipe but no gross blood in the stool. The patient states she did not see any blood in her stool or dark tarry stool. She states her stomach feels upset. She denies nausea, vomiting, and diarrhea. The patient notes she takes Coumadin for A-Fib and has a pacemaker. She did have a bowel movement while in the ER and was noted to have bright red blood around the stool. Home Medications Home Medications Medication Instructions Recorded Confirmed Type cholecalciferol (vitamin D3) 1,000 2,000 unit PO DAILY tab 02/16/19 04/17/19 History unit tablet polyethylene glycol 3350 17 17 g PO BID gm 02/16/19 04/17/19 History gram/dose oral powder amlodipine 5 mg tablet 5 mg PO DAILY #90 tab 03/15/19 04/17/19 Rx buspirone 5 mg tablet 5 mg PO BID #60 tab 03/15/19 04/17/19 Rx carvedilol 12.5 mg tablet 12.5 mg PO BID #180 tab 03/15/19 04/17/19 Rx docusate sodium 100 mg capsule 100 mg PO BID cap 03/15/19 04/17/19 History losartan 100 mg tablet 100 mg PO DAILY #30 tab 03/15/19 04/17/19 Rx potassium chloride ER 10 mEq 10 meq PO DAILY #90 tab 03/15/19 04/17/19 Rx tablet,extended release simvastatin 20 mg tablet 20 mg PO QPM #90 tab 03/15/19 04/17/19 Rx hydrochlorothiazide 25 mg tablet 25 mg PO QAM #30 tab 04/12/19 04/17/19 Rx hydralazine 50 mg PO TID 04/17/19 04/17/19 History psyllium husk [Metamucil] 1 tbsp PO DAILY 04/17/19 04/17/19 History warfarin 2.5 mg PO 2XWK 04/17/19 04/17/19 History warfarin 5 mg PO 5XWK 04/17/19 04/17/19 History Allergies Allergy/AdvReac Type Severity Reaction Status Date / Time lisinopril AdvReac Intermediate COUGH Verified 03/22/19 11:11 oxycodone AdvReac Unknown DIZZINESS Verified 03/22/19 11:11 Lightheaded Past Med/Surg History Medical History Viral gastroenteritis (Resolved) Vaginal discharge (Resolved) Urinary urgency (Resolved) Urinary tract infection, acute (Resolved) Toe joint pain (Resolved) Thickened endometrium (Resolved) Situational depression (Chronic) Shoulder pain, right (Resolved) Shortness of breath (Resolved) Post-menopausal bleeding (Resolved) Periorbital hematoma of left eye (Resolved) Pain of left calf (Resolved) Neck pain (Resolved) Nausea (Resolved) Malignant melanoma of skin (Chronic) Leg pain, right (Resolved) Left knee pain (Resolved) Knee pain (Resolved) Hypokalemia (Chronic) Foot pain, right (Resolved) Endometrioid adenocarcinoma of uterus (Chronic) Endometrial adenocarcinoma (Inactive) Encounter for preprocedural cardiovascular examination (Resolved) Cough (Resolved) Constipation (Resolved) Change in bowel habits (Resolved) Bronchitis (Resolved 04/17/13) Bloating (Resolved) Benign hypertension (Chronic 04/17/13) Arthritis (Chronic 04/17/13) Appetite loss (Resolved) Acute bronchitis (Resolved) Abnormal vaginal bleeding (Resolved) Abdominal pain (Resolved) Family History Other Family history non-contributory Social History Feels Safe at Home: Yes Smoking Status: Never smoker caffeine: No Review of Systems See HPI for pertinent positives & negatives. and A total of 10 systems reviewed and were otherwise negative Physical Exam Vital Signs Vital Signs - 24 hr 04/16/19 22:27 04/16/19 23:53 04/17/19 00:00 Temperature 36.6 C Temperature Source Oral Sepsis Recent Fever Within 48 Hours No Sepsis Action Taken by Nursing No Action Required Pulse Rate 72 70 70 Pulse Rate [Apical] Pulse Rate from SpO2 Sensor 70 70 Respiratory Rate 18 16 17 Respiratory Effort / Characteristics Non-Labored Spontaneous Respiratory Depth Normal Blood Pressure 188/82 H 188/107 H 191/111 H Blood Pressure [Right Arm] Blood Pressure Mean 117 134 137 Blood Pressure Mean [Right Arm] Pulse Oximetry 95 95 95 Oxygen Delivery Method Room Air Room Air Room Air 04/17/19 01:13 Temperature Temperature Source Sepsis Recent Fever Within 48 Hours Sepsis Action Taken by Nursing Pulse Rate Pulse Rate [Apical] 70 Pulse Rate from SpO2 Sensor Respiratory Rate 14 Respiratory Effort / Characteristics Respiratory Depth Blood Pressure Blood Pressure [Right Arm] 198/121 H Blood Pressure Mean Blood Pressure Mean [Right Arm] 146 Pulse Oximetry 95 Oxygen Delivery Method Room Air GENERAL: alert, well nourished, non-toxic. Sitting up in bed. Wearing gown. EYE EXAM: normal conjunctiva OROPHARYNX: mucous membranes are moist LUNGS: Clear to auscultation. Normal chest wall mechanics CHEST: Pacer pocket in right chest wall. HEART: no murmurs, S1 normal and S2 normal ABDOMEN: abdomen soft, non-tender, normo-active bowel sounds, no masses, no rebound or guarding. RECTAL: External hemorrhoids present. Heme positive. 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 SKIN: no rashes and no bruising UPPER EXTREMITIES: upper extremities are grossly normal. LOWER EXTREMITIES: No pitting edema. NEURO EXAM: Normal sensorium, cranial nerves II-XII grossly intact, normal speech, no gross weakness of arms, no gross weakness of legs. Course ED COURSE: Vital signs were reviewed and showed hypertension. The patients medical record was reviewed The above diagnostic studies were performed and reviewed. ED treatments and interventions as stated above. 2249: The patient was evaluated in room B7. A complete history and physical examination was performed. 2353: I performed a rectal exam. 0220: I discussed the patient's [facility] will evaluate the patient for further management 0230: Upon reevaluation, the patient is getting admitted. I discussed my findings with the patient and she understands and agrees with the treatment plan. Based on the patients age, coexisting illnesses, exam and lab findings the decision to treat as an inpatient was made. The patient remained stable while under my care. The patient will be evaluated for further management. Administered Medications Ioversol (Optiray 320 100ml) 94 ml IV ONCE PRN PRN Reason: Interaction Checking Stop: 04/21/19 00:24 Last Admin: 04/17/19 00:25 Dose: 1 ml Documented by: [id number] Medical Decision Making Differential Diagnosis Differential diagnosis includes etiologies such as diverticulosis, AVM, coagulopathy, colitis, inflammatory bowel disease, malignancy, Cesilia-Munroe tear, esophagitis, peptic ulcer disease, variceal bleed, gastritis, epistaxis, fissure, hemorrhoids, as well as others were entertained. Medical Records Attestation: I reviewed the patient's medical records. Home Medications Current Medication List: was personally reviewed by me Laboratory Data Attestation: I reviewed the patient's lab results. Result diagrams: 04/16/19 22:55 04/16/19 22:55 Lab Results 04/16/19 04/16/19 04/16/19 Range/Units 22:55 22:55 22:55 WBC 7.42 (4.8-10.8) K/uL RBC 4.68 (4.2-5.4) M/uL Hgb 14.5 (12.0-16.0) g/dL Hct 42.4 (37-47) % MCV 90.6 (80-100) fL MCH 31.0 (25-34) pg MCHC 34.2 (32-36) g/dL RDW Std Deviation 44.7 (36.4-46.3) fL RDW Coeff of Deep 13.5 (11.5-14.5) % Plt Count 239 (130-400) K/uL MPV 10.1 (7.4-10.4) fL Immature Gran % (Auto) 0.3 % Neut % (Auto) 73.0 % Lymph % (Auto) 13.7 % Motley % (Auto) 11.6 % Eos % (Auto) 1.1 % Baso % (Auto) 0.3 % Immature Gran # (Auto) 0.02 (0.00-0.02) K/uL Neut # (Auto) 5.42 (1.4-6.5) K/uL Lymph # (Auto) 1.02 L (1.2-3.4) K/uL Motley # (Auto) 0.86 H (0.11-0.59) K/uL Eos # (Auto) 0.08 (0-0.5) K/uL Baso # (Auto) 0.02 (0-0.2) K/uL PT 24.0 H (9.0-12.0) Seconds INR 2.5 H (0.9-1.1) APTT 36.8 H (21.0-31.0) Seconds PTT Ratio 1.4 Sodium 134 L (136-145) mmol/L Potassium 3.9 (3.5-5.1) mmol/L Chloride 98 (98-107) mmol/L Carbon Dioxide 28 (21-32) mmol/L Anion Gap 8.0 (3-11) BUN 18 (7-18) mg/dl Creatinine 1.08 (0.6-1.2) mg/dl Est Cr Clr Drug Dosing Not Reportable Est GFR ( Amer) 55.0 Est GFR (Non-Af Amer) 47.4 BUN/Creatinine Ratio 16.4 (10-20) Glucose 141 H (70-99) mg/dl Calcium 9.0 (8.5-10.1) mg/dl Total Bilirubin 0.3 (0.2-1) mg/dl AST 13 L (15-37) U/L ALT 23 (12-78) U/L Alkaline Phosphatase 74 (45-117) U/L Total Protein 7.4 (6.4-8.2) gm/dl Albumin 3.6 (3.4-5.0) gm/dl Globulin 3.8 (2.5-4.0) gm/dl Albumin/Globulin Ratio 0.9 (0.9-2) Blood Type Antibody Screen 04/16/19 Range/Units 22:55 WBC (4.8-10.8) K/uL RBC (4.2-5.4) M/uL Hgb (12.0-16.0) g/dL Hct (37-47) % MCV (80-100) fL MCH (25-34) pg MCHC (32-36) g/dL RDW Std Deviation (36.4-46.3) fL RDW Coeff of Deep (11.5-14.5) % Plt Count (130-400) K/uL MPV (7.4-10.4) fL Immature Gran % (Auto) % Neut % (Auto) % Lymph % (Auto) % Motley % (Auto) % Eos % (Auto) % Baso % (Auto) % Immature Gran # (Auto) (0.00-0.02) K/uL Neut # (Auto) (1.4-6.5) K/uL Lymph # (Auto) (1.2-3.4) K/uL Motley # (Auto) (0.11-0.59) K/uL Eos # (Auto) (0-0.5) K/uL Baso # (Auto) (0-0.2) K/uL PT (9.0-12.0) Seconds INR (0.9-1.1) APTT (21.0-31.0) Seconds PTT Ratio Sodium (136-145) mmol/L Potassium (3.5-5.1) mmol/L Chloride (98-107) mmol/L Carbon Dioxide (21-32) mmol/L Anion Gap (3-11) BUN (7-18) mg/dl Creatinine (0.6-1.2) mg/dl Est Cr Clr Drug Dosing Est GFR ( Amer) Est GFR (Non-Af Amer) BUN/Creatinine Ratio (10-20) Glucose (70-99) mg/dl Calcium (8.5-10.1) mg/dl Total Bilirubin (0.2-1) mg/dl AST (15-37) U/L ALT (12-78) U/L Alkaline Phosphatase (45-117) U/L Total Protein (6.4-8.2) gm/dl Albumin (3.4-5.0) gm/dl Globulin (2.5-4.0) gm/dl Albumin/Globulin Ratio (0.9-2) Blood Type A Positive Antibody Screen NEGATIVE Imaging Data Radiologist's Impression: Radiology results as stated below per my review and the radiologist's interpretation: CT ABDOMEN & PELVIS With Contrast: Colonic diverticulosis without evidence of acute diverticulitis. Evaluation of colon is limited by underdistention at some regions, but no eviden ce of mass or colitis. No free air or free fluid. Normal appendix. Small sliding hiatal hernia. Duodenal diverticulum. 6 mm liver hypodensity, likely a cyst. Splenic calcifications, likely calcified granulomas. Bilateral renal scarring and small hypodensities, likely cysts. Advanced multilevel degenerative changes of spine. Atherosclerotic calcifications of aorta and its brances. Cardiomegaly. Pacemaker. Radiologist: Yonatan French MD Study ready at 00:58 and initial results transmitted at 01:46 ECG Data Attestation: I personally reviewed and interpreted this ECG as follows: Indication: other (GI bleed) Rate (beats per minute): 71 Rhythm: other (ventricular paced) Findings: + T-wave inversion (high lateral leads) and + left axis deviation; no PVC Blood Pressure Blood Pressure Findings: Elevated blood pressure Blood Pressure Disposition: further management by hospitalist [facility] Narrative Patient is an 83-year-old female who presents the ER concern for a GI bleed. She notes that she was at home was going to urinate and noticed some blood in her underwear around her rectum. She does take Coumadin for A. fib. She came into the ER. Upon presentation here per report she had a bowel movement which had bright red blood present. IVs were established blood work was obtained. Labs show no significant leukocytosis or anemia. INR is therapeutic at 2.5. BMP along with LFTs was unremarkable. Rectal showed external hemorrhoids which were not engorged or bleeding. Rectal was heme positive with brown stool. CT abdomen pelvis was performed that she had some mild mid abdominal pain and nausea which was unremarkable. She was given a small amount of IV fluids. She was typed and screened. Will not reverse at this time as vitals are stable with exception that she is hypertensive and hemoglobin is stable. Family members do note that she does tend to strain when she has a bowel movement but she does deny this. Patient family were updated bedside. Case was discussed with the hospitalist for further evaluation. Impression & Plan GI (gastrointestinal bleed), Elevated INR, Abdominal pain, HTN (hypertension), benign Discharge Plan Visit Data Chief Complaint: Rectal Bleed Stated Complaint: RECTAL BLEED ED Provider: Tj Rascon Discharge Problem: GI (gastrointestinal bleed), Elevated INR, Abdominal pain, HTN (hypertension), benign Patient Disposition: Being Evaluated by Hospitalist Forms Stand Alone Forms: My [facility] Prescriptions Prescriptions: No Action hydrochlorothiazide 25 mg tablet 25 mg PO QAM Qty: 30 RF: 5 cholecalciferol (vitamin D3) 1,000 unit tablet 2,000 unit PO DAILY RF: 0 polyethylene glycol 3350 17 gram/dose powder 17 g PO BID RF: 0 docusate sodium 100 mg capsule 100 mg PO BID RF: 0 amlodipine 5 mg tablet 5 mg PO DAILY Qty: 90 RF: 3 buspirone 5 mg tablet 5 mg PO BID Qty: 60 RF: 4 carvedilol 12.5 mg tablet 12.5 mg PO BID Qty: 180 RF: 1 losartan 100 mg tablet 100 mg PO DAILY Qty: 30 RF: 5 potassium chloride 10 mEq tablet extended release 10 meq PO DAILY Qty: 90 RF: 3 simvastatin 20 mg tablet 20 mg PO QPM Qty: 90 RF: 1 hydralazine 50 mg tablet 50 mg PO TID RF: 0 warfarin 5 mg tablet 2.5 mg PO 2XWK RF: 0 warfarin 5 mg tablet 5 mg PO 5XWK RF: 0 Metamucil 3.4 gram/5.4 gram Powder 1 tbsp PO DAILY RF: 0 Referrals Referrals: Delia García CRNP [Primary Care Provider] - The scribe's documentation has been prepared under my direction and personally reviewed by me in its entirety. I confirm that the note above accurately reflects all work, treatment, procedures, and medical decision making performed by me.
[2019-04-17] MEDS ORDERED: ACETAMINOPHEN 1000 MG/100 ML IV IV PRN (02:52)
--- NOTE | 2019-04-17 02:55 | History & Physical Report ---
Date of Service April 17, 2019 Assessment & Plan (1) GI (gastrointestinal bleed): Rectal bleeding/likely hemorrhoidal- Last colonoscopy with Dr. Perez was in 2016, which showed diverticulosis and nonbleeding internal and external hemorrhoids. We will partially reverse warfarin. N.p.o. except medications. IV fluids. Zofran 4 mg IV every 6 hours PRN. H&H every [address] Perez. Present on Admission?: Yes (2) Elevated INR: INR is actually therapeutic at 2.5. We will give 2.5 mg of vitamin K IV to partially reverse to prevent any further bleeding. Present on Admission?: Yes (3) HTN (hypertension), benign: Atrial fibrillation/hypertension- Continue amlodipine, carvedilol, hydralazine and losartan with hold parameters. Hold HCTZ and potassium and warfarin. Present on Admission?: Yes (4) Atrial fibrillation: See above Present on Admission?: Yes (5) Anxiety: Continue buspirone. 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 Present on Admission?: Yes History of Present Illness Chief Complaint: Patient reports to the emergency department with complaint of having relatively looser stools earlier in the day, with the second bowel movement being at 4:00, and then noticing blood in her undergarments at approximately 830 when she was going to the bathroom again. Primary Care Provider: CLEVE Molina The patient is an 83-year-old female with a past medical history including atrial fibrillation on warfarin, who reports noticing blood in her undergarments approximately 830 this evening as she was about to have a third bowel movement of the day. She has not had any bleeding in the past, but she reports that she does have a history of hemorrhoids. She denies any abdominal pain or rectal pain. She is chronically fatigued, and has generalized myalgias and arthralgias. Allergies Allergy/AdvReac Type Severity Reaction Status Date / Time lisinopril AdvReac Intermediate COUGH Verified 03/22/19 11:11 oxycodone AdvReac Unknown DIZZINESS Verified 03/22/19 11:11 Lightheaded Home Medications Home Medications Medication Instructions Recorded Confirmed Type cholecalciferol (vitamin D3) 1,000 2,000 unit PO DAILY tab 02/16/19 04/17/19 History unit tablet polyethylene glycol 3350 17 17 g PO BID gm 02/16/19 04/17/19 History gram/dose oral powder amlodipine 5 mg tablet 5 mg PO DAILY #90 tab 03/15/19 04/17/19 Rx buspirone 5 mg tablet 5 mg PO BID #60 tab 03/15/19 04/17/19 Rx carvedilol 12.5 mg tablet 12.5 mg PO BID #180 tab 03/15/19 04/17/19 Rx docusate sodium 100 mg capsule 100 mg PO BID cap 03/15/19 04/17/19 History losartan 100 mg tablet 100 mg PO DAILY #30 tab 03/15/19 04/17/19 Rx potassium chloride ER 10 mEq 10 meq PO DAILY #90 tab 03/15/19 04/17/19 Rx tablet,extended release simvastatin 20 mg tablet 20 mg PO QPM #90 tab 03/15/19 04/17/19 Rx hydrochlorothiazide 25 mg tablet 25 mg PO QAM #30 tab 04/12/19 04/17/19 Rx hydralazine 50 mg PO TID 04/17/19 04/17/19 History psyllium husk [Metamucil] 1 tbsp PO DAILY 04/17/19 04/17/19 History warfarin 2.5 mg PO 2XWK 04/17/19 04/17/19 History warfarin 5 mg PO 5XWK 04/17/19 04/17/19 History Past Med/Surg History Medical History Viral gastroenteritis (Resolved) Vaginal discharge (Resolved) Urinary urgency (Resolved) Urinary tract infection, acute (Resolved) Toe joint pain (Resolved) Thickened endometrium (Resolved) Situational depression (Chronic) Shoulder pain, right (Resolved) Shortness of breath (Resolved) Post-menopausal bleeding (Resolved) Periorbital hematoma of left eye (Resolved) Pain of left calf (Resolved) Neck pain (Resolved) Nausea (Resolved) Malignant melanoma of skin (Chronic) Leg pain, right (Resolved) Left knee pain (Resolved) Knee pain (Resolved) Hypokalemia (Chronic) Foot pain, right (Resolved) Endometrioid adenocarcinoma of uterus (Chronic) Endometrial adenocarcinoma (Inactive) Encounter for preprocedural cardiovascular examination (Resolved) Cough (Resolved) Constipation (Resolved) Change in bowel habits (Resolved) Bronchitis (Resolved 04/17/13) Bloating (Resolved) Benign hypertension (Chronic 04/17/13) Arthritis (Chronic 04/17/13) Appetite loss (Resolved) Acute bronchitis (Resolved) Abnormal vaginal bleeding (Resolved) Abdominal pain (Resolved) Family History Other Family history non-contributory Social History Feels Safe at Home: Yes Smoking Status: Never smoker caffeine: No Review of Systems Review of Systems: The patient denies chest pain, palpitations, shortness of breath, dyspnea on exertion, cough, lower extremity swelling, sore throat, fevers, chills, sweats, nausea, vomiting, abdominal pain, pelvic pain, blood in urine, dysuria, urinary frequency or urgency, loss of consciousness, rash, abnormal bruising, imbalance, focal or generalized weakness, numbness or tingling in arms or legs, generalized arthralgias or myalgias, back or neck pain, or night sweats. The review of systems is otherwise negative other than for that already noted above, and at least 10 systems have been reviewed. Physical Exam Physical Exam: The patient is awake, alert and oriented 3, appears tired, normocephalic and atraumatic, lying in bed and in no acute distress. HEENT--PERRL, EOMI, mucous membranes and oropharynx dry. Neck--supple. No JVD. No bruits. Thyroid normal, trachea midline, no adenopathy. Heart--normal S1 and S2. No murmurs, rubs or gallops. Lungs--clear bilaterally, no respiratory distress, no accessory muscle use. Abdomen--normal bowel sounds and soft. Nontender. Nondistended. Obese. Extremities--no cyanosis or clubbing. No edema. There are good distal pulses b/l. Dermatologic--normal skin turgor, normal color, no abnormal lymph nodes, no rash. Neurologic--cranial nerves II through XII grossly intact. Rheumatologic--normal range of motion. Psychiatric--normal affect. Results & Data Vital Signs (Past 12 Hours) Vital Signs Temp Pulse Pulse Resp BP BP Pulse Ox 04/17/19 01:13 70 14 198/121 H 95 04/17/19 00:00 70 17 191/111 H 95 04/16/19 23:53 70 16 188/107 H 95 04/16/19 22:27 97.9 F 72 18 188/82 H 95 Laboratory Results Laboratory Results WBC 7.42 K/uL (4.8-10.8) 04/16/19 22:55 RBC 4.68 M/uL (4.2-5.4) 04/16/19 22:55 Hgb 14.5 g/dL (12.0-16.0) 04/16/19 22:55 Hct 42.4 % (37-47) 04/16/19 22:55 MCV 90.6 fL (80-100) 04/16/19 22:55 MCH 31.0 pg (25-34) 04/16/19 22:55 MCHC 34.2 g/dL (32-36) 04/16/19 22:55 RDW Std Deviation 44.7 fL (36.4-46.3) 04/16/19 22:55 RDW Coeff of Deep 13.5 % (11.5-14.5) 04/16/19 22:55 Plt Count 239 K/uL (130-400) 04/16/19 22:55 MPV 10.1 fL (7.4-10.4) 04/16/19 22:55 Immature Gran % (Auto) 0.3 % 04/16/19 22:55 Neut % (Auto) 73.0 % 04/16/19 22:55 Lymph % (Auto) 13.7 % 04/16/19 22:55 [place] % (Auto) 11.6 % 04/16/19 22:55 Eos % (Auto) 1.1 % 04/16/19 22:55 Baso % (Auto) 0.3 % 04/16/19 22:55 Immature Gran # (Auto) 0.02 K/uL (0.00-0.02) 04/16/19 22:55 Neut # (Auto) 5.42 K/uL (1.4-6.5) 04/16/19 22:55 Lymph # (Auto) 1.02 K/uL (1.2-3.4) L 04/16/19 22:55 [place] # (Auto) 0.86 K/uL (0.11-0.59) H 04/16/19 22:55 Eos # (Auto) 0.08 K/uL (0-0.5) 04/16/19 22:55 Baso # (Auto) 0.02 K/uL (0-0.2) 04/16/19 22:55 PT 24.0 Seconds (9.0-12.0) H 04/16/19 22:55 INR 2.5 (0.9-1.1) H 04/16/19 22:55 APTT 36.8 Seconds (21.0-31.0) H 04/16/19 22:55 PTT Ratio 1.4 04/16/19 22:55 Sodium 134 mmol/L (136-145) L 04/16/19 22:55 Potassium 3.9 mmol/L (3.5-5.1) 04/16/19 22:55 Chloride 98 mmol/L (98-107) 04/16/19 22:55 Carbon Dioxide 28 mmol/L (21-32) 04/16/19 22:55 Anion Gap 8.0 (3-11) 04/16/19 22:55 BUN 18 mg/dl (7-18) 04/16/19 22:55 Creatinine 1.08 mg/dl (0.6-1.2) 04/16/19 22:55 Est Cr Clr Drug Dosing Not Reportable 04/16/19 22:55 Est GFR ( Amer) 55.0 04/16/19 22:55 Est GFR (Non-Af Amer) 47.4 04/16/19 22:55 BUN/Creatinine Ratio 16.4 (10-20) 04/16/19 22:55 Glucose 141 mg/dl (70-99) H 04/16/19 22:55 Calcium 9.0 mg/dl (8.5-10.1) 04/16/19 22:55 Total Bilirubin 0.3 mg/dl (0.2-1) 04/16/19 22:55 AST 13 U/L (15-37) L 04/16/19 22:55 ALT 23 U/L (12-78) 04/16/19 22:55 Alkaline Phosphatase 74 U/L (45-117) 04/16/19 22:55 Total Protein 7.4 gm/dl (6.4-8.2) 04/16/19 22:55 Albumin 3.6 gm/dl (3.4-5.0) 04/16/19 22:55 Globulin 3.8 gm/dl (2.5-4.0) 04/16/19 22:55 Albumin/Globulin Ratio 0.9 (0.9-2) 04/16/19 22:55 POC Stool Occult Blood Positive (Negative) A 04/17/19 Unknown Blood Type A Positive 04/16/19 22:55 Antibody Screen NEGATIVE 04/16/19 22:55 Diagnostic Findings [facility] Patient: RADHA SKINNER (Female) Age: 83 MR #: [id number] Status: ER Date: 04/17/19 00:56 Slices: [id number] History: bloody stools Priors: Tech: Atif Mott @ [phone] Exams: CT ABDOMEN & PELVIS With Contrast Contrast: IV Amt: 94 ml optiray Accession Numbers: [id number] Preliminary Findings Only See Final Report For Complete Findings CT ABDOMEN & PELVIS With Contrast: Colonic diverticulosis without evidence of acute diverticulitis. Evaluation of colon is limited by underdistention at some regions, but no evidence of mass or colitis. No free air or free fluid. Normal appendix. Small sliding hiatal hernia. Duodenal diverticulum. 6 mm liver hypodensity, likely a cyst. Splenic calcifications, likely calcified granulomas. Bilateral renal scarring and small hypodensities, likely cysts. Advanced multilevel degenerative changes of spine. Atherosclerotic calcifications of aorta and its branches. Cardiomegaly. Pacemaker. Radiologist: Yonatan French MD Study ready at 00:58 and initial results transmitted at 01:46 *This report constitutes a preliminary interpretation only. Non-acute findings felt to be unrelated to the clinical presentation may not be discussed in this report. The study will be interpreted and a final report will be generated by the local Radiologist the following shift. To reach the hospital radiology department call [phone]. If a discrepancy is found between the preliminary and final interpretations of this study, please notify us via our Client Portal at [email or web address], under QA Exams. You can also fax this report with a description of the discrepancy, or include the final report, to our daytime fax number [phone]. If faxing, please indicate the severity of discrepancy using one of the following categories: [ ] 1 - Agree/Informational [ ] 2 - Unlikely to Affect Management [ ] 3 - Possible Eventual Change of Management [ ] 4 - Probable Immediate Change of Management For all other patient related information, please fax us at [phone]. [id number] Code Status & VTE Plan Code Status Full code VTE Prophylaxis Plan VTE Prophylaxis will be ordered: Yes PG Care Time/CCT Total # of Minutes Spent Total Time Spent with Patient: Total time spent is greater than 50% in coordination of care (as documented) at patient's floor/unit and/or counseling patient: (1) GI (gastrointestinal bleed) GI bleed type/associated pathology: unspecified gastrointestinal hemorrhage type Qualified Code(s): K92.2 - Gastrointestinal hemorrhage, unspecified
[2019-04-17] MEDS ORDERED: SODIUM CHLORIDE 0.9% 1000ML 1,000 ML IV SCH (03:00)
[2019-04-17] MEDS ORDERED: PHYTONADIONE 2.5 MG in SODIUM CHLORIDE 0.9% 50 ML IV ONE (03:32)
[2019-04-17 04:17] LABS: Basophils # (auto) 0.02 K/uL (0-0.2); Basophils % (auto) 0.2 %; Eosinophils # (auto) 0.02 K/uL (0-0.5); Eosinophils % (auto) 0.2 %; Hematocrit (blood only) 40.1 % (37-47); Hemoglobin 13.9 g/dL (12.0-16.0); Immature Granulocytes # (auto) 0.02 K/uL (0.00-0.02); Immature Granulocytes % (auto) 0.2 %; Lymphocytes # (auto) 1.11 K/uL (1.2-3.4); Lymphocytes % (auto) 11.5 %; Mean Corpuscular Hgb Conc 34.7 g/dL (32-36); Mean Corpuscular Volume 91.3 fL (80-100); Monocytes % (auto) 8.3 %; Neutrophils # (auto) 7.72 K/uL (1.4-6.5); Neutrophils % (auto) 79.6 %; Platelet Count 194 K/uL (130-400); RDW Coefficient of Variation 13.4 % (11.5-14.5); RDW Standard Deviation 44.9 fL (36.4-46.3); Red Blood Count 4.39 M/uL (4.2-5.4); White Blood Count 9.69 K/uL (4.8-10.8)
[2019-04-17] MEDS ORDERED: ACETAMINOPHEN 325 MG TAB PO PRN (04:36)
[2019-04-17] MEDS ORDERED: NITROGLYCERIN SL 0.4 MG/TAB TAB SL PRN (04:36)
[2019-04-17 04:40] LABS: INR 2.6 (0.9-1.1); Partial Thromboplastin Ratio 1.3; Partial Thromboplastin Time 35.7 Seconds (21.0-31.0); Prothrombin Time 24.8 Seconds (9.0-12.0)
[2019-04-17 04:41] LABS: Albumin Level 3.2 gm/dl (3.4-5.0); BUN Creatinine Ratio 16.3 (10-20); Calcium 8.5 mg/dl (8.5-10.1); Creatinine Clr Calc Pharmacy 60.2 ml/min; Est GFR (African American) 65.9; Est GFR (Non-African American) 56.8; Potassium 3.8 mmol/L (3.5-5.1)
[2019-04-17 04:44] LABS: Bilirubin,Total 0.4 mg/dl (0.2-1); Globulin 3.3 gm/dl (2.5-4.0); Total Protein 6.5 gm/dl (6.4-8.2)
[2019-04-17] MEDS: LOSARTAN POTASSIUM 50 MG TAB PO SCH (07:58)
[2019-04-17] MEDS: CARVEDILOL 12.5 MG TAB PO SCH ×2 (07:58→20:43)
[2019-04-17] MEDS: AMLODIPINE BESYLATE 5 MG TAB PO SCH (07:58)
[2019-04-17] MEDS: HydrALAZINE TAB 50 MG TAB PO SCH ×3 (07:59→20:43)
--- NOTE | 2019-04-17 08:57 | CT Scan Report ---
CT SCAN OF THE ABDOMEN AND PELVIS WITH IV CONTRAST CLINICAL HISTORY: Hematochezia. Generalized abdominal pain. COMPARISON STUDY: Abdominal CT dated 06/23/2017. TECHNIQUE: Following the IV administration of 94 cc of Optiray 320, CT scan of the abdomen and pelvi s is performed from the lung bases to the proximal femora. Images are reviewed in the axial, sagittal , and coronal planes. IV contrast was administered without complication. A dose lowering technique wa s utilized adhering to the principles of ALARA. The examination is degraded by motion artifact, as we ll as by streak artifact from the arms which could not be elevated above the abdomen or pelvis. CT DOSE: 1476.14 mGy.cm FINDINGS: Lung bases: The heart is enlarged and without pericardial effusion. Pacemaker leads are noted. There are coronary artery calcifications. There is a trace right pleural effusion and bibasilar atelectasis . No airspace consolidation is seen typical for pneumonia. A small hiatal hernia is observed. Liver: The contrast-enhanced liver is normal in size, contour, and attenuation. There is no intrahepa tic biliary ductal dilatation. The hepatic veins and portal veins are patent. A subcentimeter hypoden sity in the right lobe likely represents a cyst but is too small for definitive characterization. Gallbladder: Unremarkable. Spleen: Normal in size and attenuation. There are small calcified splenic granulomas. Pancreas: Unremarkable. Adrenal glands: Unremarkable. Kidneys: The contrast enhanced kidneys are atrophic and without hydronephrosis. The kidneys enhance s ymmetrically. Scattered subcentimeter cortical hypodensities likely represent cysts but are too small for definitive characterization. The kidneys demonstrate a lobulated contour, and small foci of pare nchymal scarring are noted on the left. Abdominal vasculature: There is advanced atherosclerotic calcification and mild ectasia of the abdomi nal aorta. Bowel: There is mild colonic diverticulosis without CT evidence of acute diverticulitis. No bowel obs truction is seen. There is a small duodenal diverticulum. The appendix is well-visualized and normal . Peritoneum: There is no intraperitoneal free air or abdominal ascites. Lymphadenopathy: None. Pelvic viscera: There is layering hyperdense material within the bladder lumen, which clears and smal l stones versus blood products. This is best seen on image #368. The bladder is otherwise normal as i ceci. The uterus is surgically absent. No adnexal lesion is seen. Skeletal structures: The skeletal structures are osteopenic. There is moderate to advanced lumbosacra l spondylosis. No lytic or blastic lesions are seen. IMPRESSION: 1. There are no acute infectious or inflammatory findings in the abdomen or pelvis. 2. There is minimal layering hyperdense debris within the bladder lumen, which could represent small stones versus blood products. Correlation with urinalysis will be required. 3. Mild colonic diverticulosis without CT evidence of acute diverticulitis. 4. Cardiomegaly and cardiac pacemaker. 5. Additional findings as above. 1. Streak and motion degraded examination. Electronically signed by: Alexandro Hansen M.D. 04/17/2019 8:56 AM
[2019-04-17 10:38] LABS: Hematocrit (blood only) 39.9 % (37-47); Hemoglobin 13.8 g/dL (12.0-16.0)
--- NOTE | 2019-04-17 12:32 | Family Medicine Progress Note ---
Date of Service April 17, 2019 Assessment & Plan (1) GI (gastrointestinal bleed): Rectal bleeding/likely hemorrhoids vs. less likely or multifactorial fissure from hard stools Last colonoscopy with Dr. Perez was in 2016, which showed diverticulosis and nonbleeding internal and external hemorrhoids. On admission wafarin was partially reverse. Was N.p.o. except medications, but since multiple Hgb WNL will resume diet. IV fluids stopped since NPO lifted Zofran 4 mg IV every 6 hours PRN. H&H every 6 hours until stopping 714 PM, unless abnormal level results. Thus far, all levels are WNL. But with any acute blood loss there may be lagging fluid shifts in acute bleeds giving false negative and therefore further need for lab monitoring. Consulted Dr. Perez GI. (2) Elevated INR: On admission INR is actually therapeutic at 2.5 and was given 2.5 mg of vitamin K IV to partially reverse to prevent any further bleeding. Repeat level for AM. (3) HTN (hypertension), benign: Atrial fibrillation/hypertension- Continue amlodipine, carvedilol, hydralazine and losartan with hold parameters. Hold HCTZ and potassium and warfarin. (4) Atrial fibrillation: See above (5) Anxiety: Continue home buspirone 5mg BID. 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 Subjective Caveat: History limited by - Patient is a vague historian. No noted obvious complaints of bleeding overnight. No noted bright red blood per rectum, no BMs overnight. Otherwise only current acute complaint is feeling foggy. No current abdominal pain. She notes history of hard stools, constipation, hemmorhoids. No chest pain, no shortness of breath. She notes she lives at home with her son and his spouse. Physical Exam Constitutional: + morbidly obese, cooperative and comfortable Eyes: EOM intact bilaterally Respiratory: normal respiratory effort; no respiratory distress, no labored breathing and does not use accessory muscles Cardiovascular: Rate/Rhythm: regular rate Gastrointestinal (Abdomen): Inspection/Auscultation: normal bowel sounds Percussion/Palpation: abdomen nontender, no guarding and abdomen not rigid Musculoskeletal: LUE lymphedema Neurologic: moves all extremities and awake Psychiatric: Orientation: alert and oriented x 3 Results & Data Vital Signs (Past 12 Hours) Vital Signs Temp Pulse Pulse Resp BP BP Pulse Ox 04/17/19 11:47 36.5 C 70 18 134/82 96 04/17/19 07:21 36.5 C 78 16 165/91 H 93 04/17/19 05:20 70 04/17/19 05:01 36.3 C L 73 20 157/84 H 93 04/17/19 02:30 69 16 174/104 H 95 04/17/19 02:00 73 17 193/95 H 95 04/17/19 01:31 70 20 171/88 H 97 04/17/19 01:13 70 14 198/121 H 95 Laboratory Results Laboratory Results - last 24 hr 04/16/19 04/16/19 04/16/19 22:55 22:55 22:55 WBC 7.42 RBC 4.68 Hgb 14.5 Hct 42.4 MCV 90.6 MCH 31.0 MCHC 34.2 RDW Std Deviation 44.7 RDW Coeff of Deep 13.5 Plt Count 239 MPV 10.1 Immature Gran % (Auto) 0.3 Neut % (Auto) 73.0 Lymph % (Auto) 13.7 [place] % (Auto) 11.6 Eos % (Auto) 1.1 Baso % (Auto) 0.3 Immature Gran # (Auto) 0.02 Neut # (Auto) 5.42 Lymph # (Auto) 1.02 L Moore # (Auto) 0.86 H Eos # (Auto) 0.08 Baso # (Auto) 0.02 PT 24.0 H INR 2.5 H APTT 36.8 H PTT Ratio 1.4 Sodium 134 L Potassium 3.9 Chloride 98 Carbon Dioxide 28 Anion Gap 8.0 BUN 18 Creatinine 1.08 Est Cr Clr Drug Dosing Not Reportable Est GFR ( Amer) 55.0 Est GFR (Non-Af Amer) 47.4 BUN/Creatinine Ratio 16.4 Glucose 141 H Calcium 9.0 Total Bilirubin 0.3 AST 13 L ALT 23 Alkaline Phosphatase 74 Total Protein 7.4 Albumin 3.6 Globulin 3.8 Albumin/Globulin Ratio 0.9 POC Stool Occult Blood Blood Type Antibody Screen 04/16/19 04/17/19 04/17/19 22:55 04:10 04:10 WBC 9.69 RBC 4.39 Hgb 13.9 Hct 40.1 MCV 91.3 MCH 31.7 MCHC 34.7 RDW Std Deviation 44.9 RDW Coeff of Deep 13.4 Plt Count 194 MPV 10.0 Immature Gran % (Auto) 0.2 Neut % (Auto) 79.6 Lymph % (Auto) 11.5 Moore % (Auto) 8.3 Eos % (Auto) 0.2 Baso % (Auto) 0.2 Immature Gran # (Auto) 0.02 Neut # (Auto) 7.72 H Lymph # (Auto) 1.11 L Moore # (Auto) 0.80 H Eos # (Auto) 0.02 Baso # (Auto) 0.02 PT 24.8 H INR 2.6 H APTT 35.7 H PTT Ratio 1.3 Sodium Potassium Chloride Carbon Dioxide Anion Gap BUN Creatinine Est Cr Clr Drug Dosing Est GFR ( Amer) Est GFR (Non-Af Amer) BUN/Creatinine Ratio Glucose Calcium Total Bilirubin AST ALT Alkaline Phosphatase Total Protein Albumin Globulin Albumin/Globulin Ratio POC Stool Occult Blood Blood Type A Positive Antibody Screen NEGATIVE 04/17/19 04/17/19 04/17/19 04:10 10:07 Unknown WBC RBC Hgb 13.8 Hct 39.9 MCV MCH MCHC RDW Std Deviation RDW Coeff of Deep Plt Count MPV Immature Gran % (Auto) Neut % (Auto) Lymph % (Auto) Moore % (Auto) Eos % (Auto) Baso % (Auto) Immature Gran # (Auto) Neut # (Auto) Lymph # (Auto) Moore # (Auto) Eos # (Auto) Baso # (Auto) PT INR APTT PTT Ratio Sodium 135 L Potassium 3.8 Chloride 101 Carbon Dioxide 25 Anion Gap 9.0 BUN 15 Creatinine 0.93 Est Cr Clr Drug Dosing 60.2 Est GFR ( Amer) 65.9 Est GFR (Non-Af Amer) 56.8 BUN/Creatinine Ratio 16.3 Glucose 103 H Calcium 8.5 Total Bilirubin 0.4 AST 10 L ALT 21 Alkaline Phosphatase 61 Total Protein 6.5 Albumin 3.2 L Globulin 3.3 Albumin/Globulin Ratio 1.0 POC Stool Occult Blood Positive A Blood Type Antibody Screen Medications Administered Acetaminophen (Tylenol) 650 mg PO Q4H PRN PRN Reason: Pain or Fever Stop: 05/17/19 04:35 Last Admin: 04/17/19 07:59 Dose: 650 mg Documented by: [id number] Amlodipine Besylate (Norvasc) 5 mg PO DAILY [facility] Stop: 05/17/19 08:59 Last Admin: 04/17/19 07:58 Dose: 5 mg Documented by: [id number] Buspirone HCl (Buspar) 5 mg PO BID [facility] Stop: 05/17/19 08:59 Last Admin: 04/17/19 07:59 Dose: 5 mg Documented by: [id number] Carvedilol (Coreg) 12.5 mg PO BID [facility] Stop: 05/17/19 08:59 Last Admin: 04/17/19 07:58 Dose: 12.5 mg Documented by: [id number] Hydralazine HCl (Apresoline) 50 mg PO TID [facility] Stop: 05/17/19 08:59 Last Admin: 04/17/19 13:29 Dose: 50 mg Documented by: [id number] Admin: 04/17/19 07:59 Dose: 50 mg Documented by: [id number] Sodium Chloride (Nss 1000ml) 1,000 mls @ 60 mls/hr IV .[id number] [facility] Stop: 05/17/19 02:59 Last Admin: 04/17/19 04:43 Dose: 60 mls/hr Documented by: [id number] Ioversol (Optiray 320 100ml) 94 ml IV ONCE PRN PRN Reason: Interaction Checking Stop: 04/21/19 00:24 Last Admin: 04/17/19 00:25 Dose: 1 ml Documented by: [id number] Losartan Potassium (Cozaar) 100 mg PO DAILY [facility] Stop: 05/17/19 08:59 Last Admin: 04/17/19 07:58 Dose: 100 mg Documented by: [id number] PG Care Time/CCT Total # of Minutes Spent Total Time Spent with Patient: Total time spent is greater than 50% in coordination of care (as documented) at patient's floor/unit and/or counseling patient: Resident Activity Tracking Resident Involvement: Resident Care Provided Care Provided: Adult Hospital Medicine (1) GI (gastrointestinal bleed) GI bleed type/associated pathology: unspecified gastrointestinal hemorrhage type Qualified Code(s): K92.2 - Gastrointestinal hemorrhage, unspecified
[2019-04-17 15:13] LABS: Hematocrit (blood only) 38.7 % (37-47); Hemoglobin 13.2 g/dL (12.0-16.0)
[2019-04-17] MEDS ORDERED: SIMVASTATIN 20 MG TAB PO SCH (21:00)
[2019-04-17 21:11] LABS: Hematocrit (blood only) 38.4 % (37-47); Hemoglobin 13.2 g/dL (12.0-16.0)
[2019-04-18 07:41] LABS: Basophils # (auto) 0.01 K/uL (0-0.2); Basophils % (auto) 0.2 %; Eosinophils # (auto) 0.05 K/uL (0-0.5); Hematocrit (blood only) 39.2 % (37-47); Hemoglobin 13.2 g/dL (12.0-16.0); Immature Granulocytes # (auto) 0.01 K/uL (0.00-0.02); Immature Granulocytes % (auto) 0.2 %; Lymphocytes # (auto) 0.97 K/uL (1.2-3.4); Lymphocytes % (auto) 19.6 %; Mean Corpuscular Hgb Conc 33.7 g/dL (32-36); Mean Corpuscular Volume 91.2 fL (80-100); Mean Platelet Volume 10.1 fL (7.4-10.4); Monocytes # (auto) 0.61 K/uL (0.11-0.59); Monocytes % (auto) 12.3 %; Neutrophils # (auto) 3.29 K/uL (1.4-6.5); Neutrophils % (auto) 66.7 %; Platelet Count 199 K/uL (130-400); RDW Coefficient of Variation 13.9 % (11.5-14.5); RDW Standard Deviation 45.4 fL (36.4-46.3); White Blood Count 4.94 K/uL (4.8-10.8)
[2019-04-18 07:50] LABS: INR 1.2 (0.9-1.1); Prothrombin Time 11.8 Seconds (9.0-12.0)
[2019-04-18] MEDS: AMLODIPINE BESYLATE 5 MG TAB PO SCH (07:55)
[2019-04-18] MEDS: LOSARTAN POTASSIUM 50 MG TAB PO SCH (07:55)
[2019-04-18] MEDS: HydrALAZINE TAB 50 MG TAB PO SCH ×2 (07:55→13:25)
[2019-04-18] MEDS: CARVEDILOL 12.5 MG TAB PO SCH (07:55)
[2019-04-18 08:17] LABS: Albumin Level 3.1 gm/dl (3.4-5.0); BUN Creatinine Ratio 17.8 (10-20); Bilirubin,Total 0.7 mg/dl (0.2-1); Calcium 8.8 mg/dl (8.5-10.1); Creatinine Clr Calc Pharmacy 59.4 ml/min; Est GFR (African American) 73.4; Est GFR (Non-African American) 63.4; Total Protein 6.1 gm/dl (6.4-8.2)
--- NOTE | 2019-04-18 08:19 | Family Medicine Progress Note ---
Date of Service April 18, 2019 Assessment & Plan (1) GI (gastrointestinal bleed): Rectal bleeding/likely hemorrhoids vs. less likely or multifactorial fissure from hard stools Last colonoscopy with Dr. Perez was in 2015, which showed diverticulosis and nonbleeding internal and external hemorrhoids. On admission wafarin was partially reverse. Was N.p.o. except medications, but since multiple Hgb WNL will resume diet. IV fluids stopped since NPO lifted Zofran 4 mg IV every 6 hours PRN. H&H every 6 hours until stopping 7/14 PM, unless abnormal level results. Thus far, all levels are WNL. But with any acute blood loss there may be lagging fluid shifts in acute bleeds giving false negative and therefore further need for lab monitoring. Consulted Dr. Perez GI. (2) Elevated INR: On admission INR is actually therapeutic at 2.5 and was given 2.5 mg of vitamin K IV to partially reverse to prevent any further bleeding. Repeat level for AM. (3) HTN (hypertension), benign: Atrial fibrillation/hypertension- Continue amlodipine, carvedilol, hydralazine and losartan with hold parameters. Hold HCTZ and potassium and warfarin. (4) Atrial fibrillation: See above (5) Anxiety: Continue home buspirone 5mg BID. (6) residential current use of anticoagulant: As noted above, warfarin will be held briefly, partially reversed with vitamin K (on admit), have serial INRs performed, and follow degree of rectal bleeding. Results & Data Vital Signs (Past 12 Hours) Vital Signs Temp Pulse Pulse Pulse Resp BP Pulse Ox 04/18/19 07:44 36.6 C 70 18 156/83 H 95 04/18/19 04:52 36.7 C 72 20 88 L 04/18/19 00:02 70 04/17/19 23:28 36.6 C 69 16 128/81 94 PG Care Time/CCT Total # of Minutes Spent Total Time Spent with Patient: Total time spent is greater than 50% in coordination of care (as documented) at patient's floor/unit and/or counseling patient: (1) GI (gastrointestinal bleed) GI bleed type/associated pathology: unspecified gastrointestinal hemorrhage type Qualified Code(s): K92.2 - Gastrointestinal hemorrhage, unspecified
--- NOTE | 2019-04-18 12:03 | Gastrointestinal Consultation ---
Date of Consultation April 18, 2019 Assessment & Plan (1) GI (gastrointestinal bleed): Symptoms are now resolved and she remains hemodynamically stable. 1. No plan for invasive GI work up at this time. 2. Recommend outpatient follow up in our office to discuss chronic constipation/management. 3. Supportive care per primary team. Supervising Physician Co-Signing Physician Notes Agree with CLEVE Mahoney as above Patient was discharged prior to my evaluation History of Present Illness Reason for Consultation: Rectal bleeding Requesting Physician: Dr. Mckinney Attending Physician: Mando Mckinney DO History of Present Illness Patient is a 83 year-old female with a history of atrial fibrillation admitted with an acute onset of loose stools with associated rectal bleeding beginning just prior to arrival. She states she does have a history of chronic constipation and known hemorrhoids. She did have a colonoscopy by Dr. Perez in 2014 which was significant for 1 TA and 2 hyperplastic polyps as well as diverticulosis and internal hemorrhoids. No repeat colonoscopy was recommended due to age. She states she has been taking MiraLAX and Metamucil to help regulate her bowel movements but continues to pass multiple small caliber stools daily and not completely emptying the bowel. This is at times associated with FI. She denies any abdominal pain, nausea or vomiting, melena or any further rectal bleeding since admission. Her H&H has remained normal during her hospitalization was 13.2/39.2 today. Allergies Allergy/AdvReac Type Severity Reaction Status Date / Time lisinopril AdvReac Mild COUGH Verified 04/17/19 13:57 oxycodone AdvReac Mild DIZZINESS Verified 04/17/19 13:57 Lightheaded Home Medications Home Medications Medication Instructions Recorded Confirmed Type cholecalciferol (vitamin D3) 1,000 2,000 unit PO DAILY tab 02/16/19 04/17/19 History unit tablet polyethylene glycol 3350 17 17 g PO BID gm 02/16/19 04/17/19 History gram/dose oral powder amlodipine 5 mg tablet 5 mg PO DAILY #90 tab 03/15/19 04/17/19 Rx buspirone 5 mg tablet 5 mg PO BID #60 tab 03/15/19 04/17/19 Rx carvedilol 12.5 mg tablet 12.5 mg PO BID #180 tab 03/15/19 04/17/19 Rx docusate sodium 100 mg capsule 100 mg PO BID cap 03/15/19 04/17/19 History losartan 100 mg tablet 100 mg PO DAILY #30 tab 03/15/19 04/17/19 Rx potassium chloride ER 10 mEq 10 meq PO DAILY #90 tab 03/15/19 04/17/19 Rx tablet,extended release simvastatin 20 mg tablet 20 mg PO QPM #90 tab 03/15/19 04/17/19 Rx hydrochlorothiazide 25 mg tablet 25 mg PO QAM #30 tab 04/12/19 04/17/19 Rx Metamucil 1 tbsp PO DAILY 04/17/19 04/17/19 History hydralazine 50 mg PO TID 04/17/19 04/17/19 History warfarin 2.5 mg PO 2XWK 04/17/19 04/17/19 History warfarin 5 mg PO 5XWK 04/17/19 04/17/19 History Patient History Medical History Viral gastroenteritis (Resolved) Vaginal discharge (Resolved) Urinary urgency (Resolved) Urinary tract infection, acute (Resolved) Toe joint pain (Resolved) Thickened endometrium (Resolved) Situational depression (Chronic) Shoulder pain, right (Resolved) Shortness of breath (Resolved) Post-menopausal bleeding (Resolved) Periorbital hematoma of left eye (Resolved) Pain of left calf (Resolved) Neck pain (Resolved) Nausea (Resolved) Malignant melanoma of skin (Chronic) Leg pain, right (Resolved) Left knee pain (Resolved) Knee pain (Resolved) Hypokalemia (Chronic) Foot pain, right (Resolved) Endometrioid adenocarcinoma of uterus (Chronic) Endometrial adenocarcinoma (Inactive) Encounter for preprocedural cardiovascular examination (Resolved) Cough (Resolved) Constipation (Resolved) Change in bowel habits (Resolved) Bronchitis (Resolved 04/17/13) Bloating (Resolved) Benign hypertension (Chronic 04/17/13) Arthritis (Chronic 04/17/13) Appetite loss (Resolved) Acute bronchitis (Resolved) Abnormal vaginal bleeding (Resolved) Abdominal pain (Resolved) Family History Other Family history non-contributory Social History Preferred Language: Telugu Communication Ability: Effective Beliefs That Will Affect Care: None marital status: Current Living Situation: Family Current Living Situation Comment: daughter and son in law Feels Safe at Home: Yes Smoking Status: Never smoker Hx Alcohol Use: No Hx Substance Use: No caffeine: No Review of Systems Review of Systems: All systems reviewed & are unremarkable except as noted in HPI & below Physical Exam Constitutional: WD/WN, vitals as above Eyes: EOM intact bilaterally Respiratory: normal respiratory effort, lungs clear to auscultation Cardiovascular: Rate/Rhythm: regular rate and regular rhythm Gastrointestinal (Abdomen): normal bowel sounds, soft, nontender, no hepatosplenomegaly Musculoskeletal: Extremities: no cyanosis Skin: no rashes, warm and dry Psychiatric: A+Ox3, euthymic affect Results & Data Vital Signs (Past 12 Hours) Vital Signs Temp Pulse Pulse Resp BP Pulse Ox 04/18/19 11:47 36.6 C 72 20 156 H 04/18/19 07:44 36.6 C 70 18 156/83 H 95 04/18/19 04:52 36.7 C 72 20 88 L 04/18/19 00:02 70 (1) GI (gastrointestinal bleed) GI bleed type/associated pathology: unspecified gastrointestinal hemorrhage type Qualified Code(s): K92.2 - Gastrointestinal hemorrhage, unspecified
[2019-04-18] MEDS ORDERED: DOCUSATE SODIUM 100 MG CAP PO SCH ×2 (13:00→21:00)
[2019-04-18] MEDS ORDERED: POLYETHYLENE (MIRALAX) 17 GM PACK PO SCH (13:30)
--- NOTE | 2019-04-18 15:08 | Discharge Summary ---
Date of Service April 18, 2019 Admission HPI Per Admitting Provider The patient is an 83-year-old female with a past medical history including atrial fibrillation on warfarin, who reports noticing blood in her undergarments approximately 830 this evening as she was about to have a third bowel movement of the day. She has not had any bleeding in the past, but she reports that she does have a history of hemorrhoids. She denies any abdominal pain or rectal pain. She is chronically fatigued, and has generalized myalgias and arthralgias. Admission Exam Per Admitting Provider The patient is awake, alert and oriented 3, appears tired, normocephalic and atraumatic, lying in bed and in no acute distress. HEENT--PERRL, EOMI, mucous membranes and oropharynx dry. Neck--supple. No JVD. No bruits. Thyroid normal, trachea midline, no adenopathy. Heart--normal S1 and S2. No murmurs, rubs or gallops. Lungs--clear bilaterally, no respiratory distress, no accessory muscle use. Abdomen--normal bowel sounds and soft. Nontender. Nondistended. Obese. Extremities--no cyanosis or clubbing. No edema. There are good distal pulses b/l. Dermatologic--normal skin turgor, normal color, no abnormal lymph nodes, no rash . Neurologic--cranial nerves II through XII grossly intact. Rheumatologic--normal range of motion. Psychiatric--normal affect. Principal Diagnosis Rectal Bleed Discharge Exam Constitutional: + morbidly obese, cooperative and comfortable Eyes: EOM intact bilaterally Respiratory: normal respiratory effort; no respiratory distress, no labored breathing and does not use accessory muscles Cardiovascular: Rate/Rhythm: regular rate Gastrointestinal (Abdomen): Inspection/Auscultation: normal bowel sounds Percussion/Palpation: abdomen nontender, no guarding and abdomen not rigid Musculoskeletal: LUE lymphedema Neurologic: moves all extremities and awake Psychiatric: Orientation: alert and oriented x 3 Discharge Data Allergies Allergy/AdvReac Type Severity Reaction Status Date / Time lisinopril AdvReac Mild COUGH Verified 04/17/19 13:57 oxycodone AdvReac Mild DIZZINESS Verified 04/17/19 13:57 Lightheaded Consultations 04/17/19 01:55 ED Decision to Admit Stat 04/17/19 04:36 Consult Gastroenterology Routine Ordered Studies 04/16/19 22:57 CT abd pelvis IV con only Stat Hospital Course (1) GI (gastrointestinal bleed): Rectal bleeding/likely hemorrhoids vs. less likely or multifactorial fissure from hard stools.Last colonoscopy with Dr. Perez was in 2015, which showed diverticulosis and nonbleeding internal and external hemorrhoids. On admission wafarin was partially reverse.Was N.p.o. except medications, but since multiple Hgb WNL will resume diet. H&H was obtained every 6 hours until stopping 04/17 PM, all wnl. she was monitored as with any acute blood loss there may be lagging fluid shifts in acute bleeds giving false negative and therefore further need for lab monitoring. GI was consulted for completeness, they have no plan for invasive GI work-up at this time, sulemand outpatient follow-up in their office to discuss chronic constipation/management. (2) Elevated INR: On admission INR is actually therapeutic at 2.5 and was given 2.5 mg of vitamin K IV to partially reverse to prevent any further bleeding. There were no further signs of bleeding and hemoglobin remained stable patient the patient was restarted on Coumadin on 04/17. This morning her INR was 1.2. Patient will be following up with home INR clinic tomorrow and then every 3 days until INR reaches therapeutic level (3) HTN (hypertension), benign: Atrial fibrillation/hypertension- Continuee amlodipine, carvedilol, hydralazine and losartan with hold parameters. Initially held HCTZ potassium and warfarin, all resumed on discharge. Hold HCTZ and potassium and warfarin. (4) Atrial fibrillation: See above (5) Anxiety: Continue home buspirone 5mg BID. (6) assisted current use of anticoagulant: As noted above, warfarin will be held briefly, partially reversed with vitamin K (on admit), have serial INRs performed, and follow degree of rectal bleeding. INR in the morning of discharge is 1.2, currently there is no indication for heparin bridge. Patient will be following up with in-home INR clinic tomorrow and then every 3 days until INR is therapeutic Total Time Total Time Spent Total Time Spent (In Minutes): >30 Discharge Plan Discharge Items Patient Disposition: Home - Self-Care Reason For Visit: RECTAL BLEED Discharge Diagnosis: Rectal Bleed Discharge Goals: Diagnostic testing Activity: Resume your previous activity Activity Comment: as tolerated Non-emergency contact: Primary Care Provider Call non-emergency contact if: you have any medication questions and your symptoms worsen Follow-up/Referrals: Delia García CRNP [Primary Care Provider] - Diet: Carb Consistent or DM2 Addtl Provider Instructions: Care instructions: You were admitted to [facility] for treatment of Rectal Bleed. A discharge summary will be sent to your primary care physician to ensure continuity of care.Please bring this discharge summary with you to your next office appointment so that your provider can review it at that time. Follow-up appointments: - Keep all your follow-up appointments as already scheduled. If you cannot make an appointment, notify your provider. - Please call to request a follow-up appointment with your primary care physician within one week of discharge. Please let us know if you are unable to obtain an appointment Medications: - Your medication list has been reviewed and reconciled upon discharge to ensure accuracy and continuity of care. - You are provided with a list of all your current medications at this time. Please review this list closely and make note of any changes. - Please take all of your medications exactly as prescribed. - Tell your primary care provider if you cannot afford your medications. - Call your primary care provider if you are having any side effects or any other problems. - Call your primary care provider before taking any over the counter medications or supplements, including herbals and vitamins, because some of these may interact with your current medications and/or make your symptoms worse. Please take MiraLAX and docusate twice daily Symptoms: Please call your primary care provider for symptoms including, but not limited to: fevers (temperatures greater than 100.4), chills, intractable nausea or vomiting, diarrhea, rash, shortness of breath, bleeding, pain, or if you experience any worsening of the symptoms that brought you to the hospital. For EMERGENCY and VERY SERIOUS health-related issues, such as chest pain, shortness of breath, or sudden onset of the symptoms that brought you to the hospital, you may need to call 911 or go directly to the Emergency Room It has been our privilege to take care of you during your hospital stay. And Above All Else Fell Better! Best Wishes, Willian Sauceda MD PGY1 Resident, Family & Community Medicine [facility] [place] [address], [address] MC: [address] [place] [address], [place] [address] Prescriptions: Continued hydrochlorothiazide 25 mg tablet 25 mg PO QAM Qty: 30 RF: 5 cholecalciferol (vitamin D3) 1,000 unit tablet 2,000 unit PO DAILY RF: 0 polyethylene glycol 3350 17 gram/dose powder 17 g PO BID RF: 0 docusate sodium 100 mg capsule 100 mg PO BID RF: 0 amlodipine 5 mg tablet 5 mg PO DAILY Qty: 90 RF: 3 buspirone 5 mg tablet 5 mg PO BID Qty: 60 RF: 4 carvedilol 12.5 mg tablet 12.5 mg PO BID Qty: 180 RF: 1 losartan 100 mg tablet 100 mg PO DAILY Qty: 30 RF: 5 potassium chloride 10 mEq tablet extended release 10 meq PO DAILY Qty: 90 RF: 3 simvastatin 20 mg tablet 20 mg PO QPM Qty: 90 RF: 1 hydralazine 50 mg tablet 50 mg PO TID RF: 0 warfarin 5 mg tablet 2.5 mg PO 2XWK RF: 0 warfarin 5 mg tablet 5 mg PO 5XWK RF: 0 Metamucil 3.4 gram/5.4 gram Powder 1 tbsp PO DAILY RF: 0 Stand-Alone Forms: [facility] Discharge Orders: Discharge Order (Routine); Ordered 04/18/19 Ordered By: Willian Sauceda Admission Data Admit Date/Time: 04/17/19 02:52 Attending Provider: Mando Mckinney Admit Provider: John Ledesma Primary Care Provider: Delia García Other Providers: John Ledesma ; Reinaldo Perez Service: Telemetry Medical Other Interventions: Discharge Summary Assessment (RN) Last Done: 04/18/19 15:55 DC Date/Time DO NOT enter until pt leaves facility: 04/18/19 16:53 Supervising Physician Co-Signing Physician Notes Patient seen and examined independently of Dr. Sauceda. Agree with history, exam findings, assessment and plan of care as outlined. Notes no further bleeding since admission. Also reports difficulty stooling, some constipation. Well appearing. Irregular heart rate. Breathing comfortably on room air. Abdomen soft, nontender. 83 year old female with hx of afib, HTN, CAD admitted with rectal bleeding 1. rectal bleeding - hemorrhoid, hgb 14.5 on admission?13.2 - CT abd/pelvis normal on admission - GI consultedno further work up needed in house. - restarted home miralax and added docusate to start bowel regimen. 2. elevated INR in the setting of chronic anticoagulation - INR 2.5 on admission - s/p 2.5mg Vitamin K IV - pt has home INR monitoring, will have INR done tomorrow then again on Thursday after restarting home Coumadin dosing. 3. HTN - continue home amlodipine, hydralazine and losartan 4. afib - continue home carvedilol - AC with Coumadin, home dosing 5mg 5 days, 2.5mg 2 days 5. hx of CAD - home meds as above + simvastatin 20mg 5. anxiety -continue home buspar Resident Activity Tracking Resident Involvement: Resident Care Provided Care Provided: Adult Hospital Medicine
== END 2019-04-18 16:53 | disposition home or self-care (01) ==
LOC: ED 22:26 → 2W 22:26 → SUATTDRO 04-17 02:52 → 2W 04-17 04:06

== ENCOUNTER 2020-05-14 11:19 | Observation (INO) ==
[2020-05-14 12:17] LABS: Basophils # (auto) 0.02 K/uL (0-0.2); Basophils % (auto) 0.2 %; Eosinophils # (auto) 0.11 K/uL (0-0.5); Eosinophils % (auto) 1.3 %; Hematocrit (blood only) 42.3 % (37-47); Hemoglobin 14.1 g/dL (12.0-16.0); Immature Granulocytes # (auto) 0.02 K/uL (0.00-0.02); Immature Granulocytes % (auto) 0.2 %; Lymphocytes # (auto) 1.13 K/uL (1.2-3.4); Lymphocytes % (auto) 12.9 %; Mean Corpuscular Hemoglobin 30.5 pg (25-34); Mean Corpuscular Hgb Conc 33.3 g/dL (32-36); Mean Corpuscular Volume 91.4 fL (80-100); Mean Platelet Volume 10.2 fL (7.4-10.4); Monocytes % (auto) 13.7 %; Neutrophils # (auto) 6.29 K/uL (1.4-6.5); Neutrophils % (auto) 71.7 %; Platelet Count 250 K/uL (130-400); RDW Coefficient of Variation 13.5 % (11.5-14.5); RDW Standard Deviation 44.9 fL (36.4-46.3); Red Blood Count 4.63 M/uL (4.2-5.4); White Blood Count 8.77 K/uL (4.8-10.8)
--- NOTE | 2020-05-14 12:23 | XRay Report ---
XR chest 1V portable CLINICAL HISTORY: Chest Pain pain COMPARISON STUDY: 06/01/2019 FINDINGS: Mild stable cardiomegaly. Unipolar cardiac pacer in good position. Lungs are considered alo ar. IMPRESSION: Chronic change. No acute process. ACT 112: Negative or not required by law. The above report was generated using voice recognition software. It may contain grammatical, syntax or spelling errors. Electronically signed by: Parminder Morales M.D. 05/14/2020 12:21 PM
[2020-05-14 12:32] LABS: INR 1.9 (0.9-1.1); Partial Thromboplastin Ratio 1.3; Partial Thromboplastin Time 36.5 Seconds (21.0-31.0); Prothrombin Time 19.6 Seconds (9.0-12.0)
--- NOTE | 2020-05-14 12:38 | Emergency Department Note ---
Impression & Plan Substernal chest pain, Severe hypertension, Edema ED Provider Note INFORMANT: [Patient] ED PROVIDER(S): Sudhakar Merrill MD CHIEF COMPLAINT: Chest pain PLAN: Disposition: Admitted Condition: [Good] MEDICAL DECISION MAKING: Patient presented with family complaining of chest heaviness and discomfort for the last 2 days. She also noted some increased edema in the extremities and weight gain. Daughter in law was concerned for CHF as the patient has a history of the same. She had a paced rhythm on ECG. Her CBC was unremarkable. INR was therapeutic. Troponin and BNP were within normal limits. Chemistry panel did not reveal any significant findings. The patient was significantly hypertensive. She was given a dose of IV Lasix and Nitropaste. I did discuss further management in the hospital given her severe hypertension, chest discomfort and edema. The family and patient were in agreement. Consultation was made with the hospitalist service. Patient was evaluated in the ER for further management. Triage Nursing notes reviewed and agree them. [Additional history obtained from] family Vital Signs: reviewed and remarkable for significant hypertension Differential diagnosis: Cardiac ischemia, aortic dissection, pulmonary embolism, pneumothorax, pneumonia, pericarditis, myocarditis, esophageal rupture, GERD, cholecystitis, pancreatitis, musculoskeletal, hypertensive emergency as well as other pathologies. Diagnostics interpreted by me: ECG: Twelve-lead ECG reveals a paced rhythm at 74 bpm. There is no evidence of PVCs. There is no ST elevation present. When compared to prior ECG 06/01/2019 there is no significant change. Cardiac Monitoring: Cardiac monitoring ordered by me: The patient was placed on continuous cardiac monitoring and observed. It revealed a paced rhythm at 71 beats per minute without ectopy or evidence of dysrhythmia. Imaging studies: Chest x-ray. Findings: A chest x-ray was performed and revealed no pneumothorax, effusion, infiltrate, pulmonary edema, free air under the diaphragm, or wide mediastinum. Impression: No acute disease. Consultation(s): Dr Arteaga, [facility] hospitalist service HPI: The patient is a 84 year old female who presents to the Emergency Room with complaints of substernal CP. This started to escalate 2 days ago and is radiating to the left arm. The patient also notes the following associated symptoms, edema, chronic SOB, feverish, chills, cough, abdominal pain. Daugther in law concerned about recurring CHF. The patient has found no relieving factors. Current pain is rated as 0/10. No known sick contacts. Pt denies LOC, headache, diaphoresis, visual changes, neck pain, nausea, vomiting, back pain, melena, hematochezia, urinary symptoms, numbness, weakness, lymphadenopathy, rash, or other complaints. ROS: See above HPI for pertinent positives & negatives. A total of [10] systems reviewed and were otherwise negative. PAST MEDICAL HISTORY:[See Below] CHF, melanoma PAST SURGICAL HISTORY:[See Below]Pacemaker, lymph node resection LUE FAMILY HISTORY:[See Below] SOCIAL HISTORY:[See Below]LIves with family HOME MEDICATIONS:[See Below] ALLERGIES:[See Below] VITALS:[See Below] PHYSICAL EXAMINATION: GENERAL: Awake, alert, well-appearing, in no distress HENT: Normocephalic, atraumatic. Oropharynx unremarkable. EYES: Normal conjunctiva. Sclera non-icteric. NECK: Inspection normal. Non-tender. Supple. No nuchal rigidity. FROM. No masses. RESPIRATORY: Clear to auscultation. No wheezes. No rales. Normal respiratory effort. CARDIAC: Normal rate. Normal rhythm. No murmurs. No rubs. Extremities warm and well perfused. Pulses equal. No JVD. GI: Soft, non-distended. No tenderness to palpation. No rebound or guarding. No masses. RECTAL: Deferred. MUSCULOSKELETAL: Atraumatic. Chest examination reveals no tenderness. The back is symmetrical on inspection without obvious abnormality. There is no CVA tenderness to palpation. 2+ LUE edema LOWER EXTREMITIES: Calves are equal size bilaterally and non-tender. 2+ edema. No discoloration. NEURO: Normal sensorium. No sensory or motor deficits noted. SKIN: No rash or jaundice noted. 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) Foot pain, right (Resolved) Hypokalemia (Chronic) Knee pain (Resolved) Left knee pain (Resolved) Leg pain, right (Resolved) Malignant melanoma of skin (Chronic) Nausea (Resolved) Neck pain (Resolved) Pain of left calf (Resolved) Periorbital hematoma of left eye (Resolved) Post-menopausal bleeding (Resolved) Shortness of breath (Resolved) Shoulder pain, right (Resolved) Situational depression (Chronic) Thickened endometrium (Resolved) Toe joint pain (Resolved) Urinary tract infection, acute (Resolved) Urinary urgency (Resolved) Vaginal discharge (Resolved) Viral gastroenteritis (Resolved) Surgical History (Updated 05/14/20 @ 16:55 by Fern Ojeda PA-C) History of surgery on arm for malignant melanoma with LN resection Hx of hernia repair Hx of hysterectomy Family History Father Myocardial infarction Brother Myocardial infarction Other Family history non-contributory Denies family history of Ovarian cancer Prostate cancer Breast cancer Colorectal cancer Social History Smoking Status: Never smoker Hx Alcohol Use: No Hx Substance Use: No Preferred Language: Hungarian Communication Ability: Effective Tap Puller Required: No Beliefs That Will Affect Care: None marital status: Current Living Situation: Family Current Living Situation Comment: with daughter and son in law current occupational status: retired How many Children do You have: 2 Other Information That Helps Us Care for You: No Feels Safe at Home: Yes Safety Concerns: Feels Safe At This Time caffeine: No Dental Care, Regularly: No Physical Activity Frequency: Does not Exercise Seatbelt Use: always Sunscreen Use: No Allergies Allergies Allergy/AdvReac Type Severity Reaction Status Date / Time lisinopril AdvReac Mild COUGH Verified 05/14/20 12:57 oxycodone AdvReac Mild DIZZINESS Verified 05/14/20 12:57 Lightheaded Home Meds Home Medications Medication Instructions Recorded Confirmed docusate sodium 100 mg capsule 100 mg PO BID cap 03/15/19 05/14/20 warfarin 2.5 mg PO 2XWK 04/17/19 05/14/20 hydralazine 50 mg tablet 25 mg PO TID 04/19/19 05/14/20 cholecalciferol (vitamin D3) 2,000 unit PO QAM 06/01/19 05/14/20 [Vitamin D3] polyethylene glycol 3350 [Miralax] 17 g PO BID 06/01/19 05/14/20 amlodipine 5 mg PO QAM 05/14/20 05/14/20 buspirone 5 mg PO BID 05/14/20 05/14/20 carvedilol 12.5 mg PO BID 05/14/20 05/14/20 hydrochlorothiazide 25 mg PO QAM 05/14/20 05/14/20 potassium chloride 10 meq PO QDL 05/14/20 05/14/20 simvastatin 20 mg PO HS 05/14/20 05/14/20 triamcinolone acetonide 1 applic TOPICAL BID 05/14/20 05/14/20 warfarin 5 mg PO 5XWK 05/14/20 05/14/20 Previous Rx's Medication Instructions Recorded losartan 100 mg tablet 100 mg PO DAILY #30 tab 03/15/19 Results & Data (ED) Vital Signs Vital Signs - 24 hr 05/14/20 11:28 05/14/20 12:16 05/14/20 12:30 Temperature 36.8 C Temperature Source Oral Pulse Rate 71 72 70 Pulse Rate from SpO2 Sensor 69 70 Respiratory Rate 22 16 17 Blood Pressure 164/87 H Blood Pressure Mean 112 Blood Pressure Position Sitting Pulse Oximetry 95 94 97 Sepsis Recent Fever Within 48 Hours No Sepsis New/Unexplained Change in Mental Status No Sepsis Action Taken by Nursing No Action Required 05/14/20 12:38 Temperature Temperature Source Pulse Rate 70 Pulse Rate from SpO2 Sensor 70 Respiratory Rate 18 Blood Pressure 176/125 H Blood Pressure Mean 136 Blood Pressure Position Pulse Oximetry 97 Sepsis Recent Fever Within 48 Hours Sepsis New/Unexplained Change in Mental Status Sepsis Action Taken by Nursing Laboratory Data Result diagrams: 05/14/20 12:08 05/14/20 13:10 Lab Results 05/14/20 05/14/20 05/14/20 Range/Units 12:08 12:08 12:08 WBC 8.77 (4.8-10.8) K/uL RBC 4.63 (4.2-5.4) M/uL Hgb 14.1 (12.0-16.0) g/dL Hct 42.3 (37-47) % MCV 91.4 (80-100) fL MCH 30.5 (25-34) pg MCHC 33.3 (32-36) g/dL RDW Std Deviation 44.9 (36.4-46.3) fL RDW Coeff of Deep 13.5 (11.5-14.5) % Plt Count 250 (130-400) K/uL MPV 10.2 (7.4-10.4) fL Immature Gran % (Auto) 0.2 % Neut % (Auto) 71.7 % Lymph % (Auto) 12.9 % [place] % (Auto) 13.7 % Eos % (Auto) 1.3 % Baso % (Auto) 0.2 % Neut # (Auto) 6.29 (1.4-6.5) K/uL Lymph # (Auto) 1.13 L (1.2-3.4) K/uL [place] # (Auto) 1.20 H (0.11-0.59) K/uL Eos # (Auto) 0.11 (0-0.5) K/uL Baso # (Auto) 0.02 (0-0.2) K/uL Immature Gran # (Auto) 0.02 (0.00-0.02) K/uL PT 19.6 H (9.0-12.0) Seconds INR 1.9 H (0.9-1.1) APTT 36.5 H (21.0-31.0) Seconds PTT Ratio 1.3 Sodium 131 L (136-145) mmol/L Potassium (3.5-5.1) mmol/L Chloride 98 (98-107) mmol/L Carbon Dioxide 25 (21-32) mmol/L Anion Gap 7.0 (3-11) BUN 21 H (7-18) mg/dl Creatinine 0.89 (0.6-1.2) mg/dl Est Cr Clr Drug Dosing 54.3 ml/min Est GFR ( Amer) 69.0 Est GFR (Non-Af Amer) 59.5 BUN/Creatinine Ratio 23.2 H (10-20) Glucose 99 (70-99) mg/dl Calcium 9.3 (8.5-10.1) mg/dl Total Bilirubin 0.6 (0.2-1) mg/dl AST (15-37) U/L ALT 22 (12-78) U/L Alkaline Phosphatase 65 (45-117) U/L Troponin I < 0.015 (0-0.045) ng/ml NT-Pro-B Natriuret Pep 1173 (0-1800) pg/ml Total Protein 6.8 (6.4-8.2) gm/dl Albumin 3.1 L (3.4-5.0) gm/dl Globulin 3.7 (2.5-4.0) gm/dl Albumin/Globulin Ratio 0.8 L (0.9-2) TSH (0.300-4.500) uIu/ml Urine Color Urine Appearance (Clear) Urine pH (4.5-7.5) Ur Specific [place] (1.000-1.030) Urine Protein (Negative) Urine Glucose (UA) (Negative) Urine Ketones (Negative) Urine Blood (Negative) Urine Nitrite (Negative) Urine Bilirubin (Negative) Urine Urobilinogen (Negative) Ur Leukocyte Esterase (Negative) Urine WBC (Auto) (0-5) /hpf Urine RBC (Auto) (0-4) /hpf U Hyaline Cast (Auto) (0-5) /lpf U Epithel Cells (Auto) (0-5) /lpf Urine Bacteria (Auto) (Negative) 05/14/20 05/14/20 05/14/20 Range/Units 12:08 13:10 16:50 WBC (4.8-10.8) K/uL RBC (4.2-5.4) M/uL Hgb (12.0-16.0) g/dL Hct (37-47) % MCV (80-100) fL MCH (25-34) pg MCHC (32-36) g/dL RDW Std Deviation (36.4-46.3) fL RDW Coeff of Deep (11.5-14.5) % Plt Count (130-400) K/uL MPV (7.4-10.4) fL Immature Gran % (Auto) % Neut % (Auto) % Lymph % (Auto) % [place] % (Auto) % Eos % (Auto) % Baso % (Auto) % Neut # (Auto) (1.4-6.5) K/uL Lymph # (Auto) (1.2-3.4) K/uL [place] # (Auto) (0.11-0.59) K/uL Eos # (Auto) (0-0.5) K/uL Baso # (Auto) (0-0.2) K/uL Immature Gran # (Auto) (0.00-0.02) K/uL PT (9.0-12.0) Seconds INR (0.9-1.1) APTT (21.0-31.0) Seconds PTT Ratio Sodium (136-145) mmol/L Potassium 3.7 (3.5-5.1) mmol/L Chloride (98-107) mmol/L Carbon Dioxide (21-32) mmol/L Anion Gap (3-11) BUN (7-18) mg/dl Creatinine (0.6-1.2) mg/dl Est Cr Clr Drug Dosing ml/min Est GFR ( Amer) Est GFR (Non-Af Amer) BUN/Creatinine Ratio (10-20) Glucose (70-99) mg/dl Calcium (8.5-10.1) mg/dl Total Bilirubin (0.2-1) mg/dl AST 14 L (15-37) U/L ALT (12-78) U/L Alkaline Phosphatase (45-117) U/L Troponin I (0-0.045) ng/ml NT-Pro-B Natriuret Pep (0-1800) pg/ml Total Protein (6.4-8.2) gm/dl Albumin (3.4-5.0) gm/dl Globulin (2.5-4.0) gm/dl Albumin/Globulin Ratio (0.9-2) TSH 3.790 (0.300-4.500) uIu/ml Urine Color Yellow Urine Appearance Clear (Clear) Urine pH 7.5 (4.5-7.5) Ur Specific [place] 1.007 (1.000-1.030) Urine Protein Negative (Negative) Urine Glucose (UA) Negative (Negative) Urine Ketones Negative (Negative) Urine Blood Trace H (Negative) Urine Nitrite Negative (Negative) Urine Bilirubin Negative (Negative) Urine Urobilinogen Negative (Negative) Ur Leukocyte Esterase 3+ H (Negative) Urine WBC (Auto) 5-10 H (0-5) /hpf Urine RBC (Auto) 0-4 (0-4) /hpf U Hyaline Cast (Auto) 0 (0-5) /lpf U Epithel Cells (Auto) 20-30 H (0-5) /lpf Urine Bacteria (Auto) Negative (Negative) Administered Medications Acetaminophen (Tylenol) 650 mg PO Q4H PRN PRN Reason: Pain or Fever Stop: 06/13/20 18:21 Last Admin: 05/14/20 19:52 Dose: 650 mg Documented by: [id number] Buspirone HCl (Buspar) 5 mg PO BID [facility] Stop: 06/13/20 20:59 Last Admin: 05/14/20 20:02 Dose: 5 mg Documented by: [id number] Carvedilol (Coreg) 12.5 mg PO BID [facility] Stop: 06/13/20 20:59 Last Admin: 05/14/20 20:03 Dose: 12.5 mg Documented by: [id number] Hydralazine HCl (Apresoline) 25 mg PO TID [facility] Stop: 06/13/20 20:59 Last Admin: 05/14/20 20:02 Dose: 25 mg Documented by: [id number] Polyethylene Glycol (Miralax Powder Packet) 17 gm PO BID [facility] Stop: 06/13/20 20:59 Last Admin: 05/14/20 20:04 Dose: 17 gm Documented by: [id number] Simvastatin (Zocor) 20 mg PO HS [facility] Stop: 06/13/20 20:59 Last Admin: 05/14/20 20:02 Dose: 20 mg Documented by: [id number] Triamcinolone Acetonide (Kenalog 0.1%) 1 appln TOP BID [facility] Stop: 06/13/20 20:59 Last Admin: 05/14/20 20:03 Dose: 1 appln Documented by: [id number] Warfarin Sodium (Coumadin) 2.5 mg PO [email or web address] [facility] Stop: 06/13/20 18:59 Last Admin: 05/14/20 19:53 Dose: 2.5 mg Documented by: [id number] Discontinued Medications Furosemide (Lasix) 20 mg IV NOW STA Stop: 05/14/20 14:40 Last Admin: 05/14/20 15:03 Dose: 20 mg Documented by: [id number] Hydralazine HCl (Hydralazine Hcl) 10 mg IV NOW STA Stop: 05/14/20 16:42 Last Admin: 05/14/20 17:18 Dose: 10 mg Documented by: [id number] Nitroglycerin (Nitro-Bid 2%) 0.5 inch EXT NOW STA Stop: 05/14/20 14:40 Last Admin: 05/14/20 15:03 Dose: 0.5 inch Documented by: [id number] Discharge Plan Visit Data *Final* Discharge Date/Time: 05/14/20 17:56 Chief Complaint: Chest Pain Stated Complaint: CHEST PAIN,SOB ED Provider: Sudhakar Merrill Discharge Problem: Substernal chest pain, Severe hypertension, Edema Patient Disposition: Admitted As Inpatient Discharge Instructions Interventions: ED Discharge Assessment Last Done: 05/14/20 17:56
[2020-05-14 12:52] LABS: Alanine Aminotransferase 22 U/L (12-78); Albumin Globulin Ratio 0.8 (0.9-2); Albumin Level 3.1 gm/dl (3.4-5.0); Alkaline Phosphatase 65 U/L (45-117); BUN Creatinine Ratio 23.2 (10-20); Bilirubin,Total 0.6 mg/dl (0.2-1); Blood Urea Nitrogen 21 mg/dl (7-18); Calcium 9.3 mg/dl (8.5-10.1); Carbon Dioxide 25 mmol/L (21-32); Chloride 98 mmol/L (98-107); Creatinine Clr Calc Pharmacy 54.3 ml/min; Est GFR (Non-African American) 59.5; Globulin 3.7 gm/dl (2.5-4.0); Glucose 99 mg/dl (70-99); NT Pro B Type Natriuretic Pept 1173 pg/ml (0-1800); Sodium 131 mmol/L (136-145); Total Protein 6.8 gm/dl (6.4-8.2); Troponin I < 0.015 ng/ml (0-0.045)
[2020-05-14 13:40] LABS: Potassium 3.7 mmol/L (3.5-5.1)
[2020-05-14] MEDS ORDERED: NITROGLYCERIN 2% OINTMENT 30GM TUBE EXT STA (14:39)
[2020-05-14] MEDS ORDERED: FUROSEMIDE 40 MG/4 ML VIAL IV STA (14:39)
[2020-05-14] MEDS ORDERED: HydrALAZINE HCL 20 MG/ML VIAL IV STA (16:41)
--- NOTE | 2020-05-14 16:42 | History & Physical Report ---
Date of Service May 14, 2020 Assessment & Plan (1) Substernal chest pain: * Obs PCU cp r/o. EKG with ventricular pacing. BNP only 1173. Trop <0.015. CXR with mild stable cardiomegaly, no acute process. WBC 8.7k. Afebrile. * Serial troponin * Cardiology consult -- appreciate assistance. Pt follows with [facility] cardiology. Recent reported symptomatic bradycardia and had questioned upgrading to BiV pacer and f/u stress testing but had been deferred at that time. 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 * Given 20mg IV lasix x 1 in ER --> no further cough on exam or during our conversation * Supplemental O2 as needed, although pt 97% on RA * Albuterol neb prn (3) Shortness of breath: * Suspect some level of deconditioning as patient lives with daughter and son-in-law and ambulates in her room but does have shortness of breath coming and going for a while now * See above under cough. No loss of taste/smell/pneumonia on imaging, lymphopenia, etc. (4) Heart disease: * Follows with [facility] Cardiology, Parminder Lowery. Recently evaluated by EP, Dr. Carlisle, for possible upgrade to BiV device * Cardiology consulted -- appreciate assistance * Last ECHO December 2019 with reported EF 35-39%, presumed to be non-ischemic due to RV pacing * Pacemaker interrogation * Continue home carvediolol 12.5mg BID, Losartan 100mg 100mg, simvastatin 20mg HS (5) Symptomatic bradycardia: * And was referred to EP as above (6) Benign hypertension: * Chronic. 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 She states her chest pain comes and goes from time to time. Unsure of frequency. Can occur at rest or with activity and she notes sometimes it depends on what she is doing but other times it does not. She has a pacemaker and had been seen by [facility] Cardiology (follows with Parminder Lowery) and has been seen this year by Dr. Carlisle for a possible upgrade of her pacemaker to a BiV device. She states the cough and congestion having been occurring for the past "several days" and states she has been producing phlegm she believes but has not been able to cough anything up. She notes associated lower extremity edema that has been progressively getting worse. She notes increased fatigue over the past several months. Never any reported history of issues with her thyroid. She also notes that she has been dealing with constipation for years and takes miralax twice daily for this. She did take her morning pills. Denies fevers, chills, loss of smell/appetite, contact with anyone with COVID or symptoms thereof. ER Course: EKG with ventricular paced rhythm 74bpm (replaced afib). CXR with stable cardiomegaly, no acute process. CBC with WBC 8.7km h/h 14/42. Plt 250. BMP with hyponatremia, Na 131, K 3.7. BUN 21, Cr 0.89. Lasix 20mg IV x 1. Nirtobid x 1. Allergies Allergy/AdvReac Type Severity Reaction Status Date / Time lisinopril AdvReac Mild COUGH Verified 05/14/20 12:57 oxycodone AdvReac Mild DIZZINESS Verified 05/14/20 12:57 Lightheaded Home Medications Home Medications Medication Instructions Recorded Confirmed Type docusate sodium 100 mg capsule 100 mg PO BID cap 03/15/19 05/14/20 History losartan 100 mg tablet 100 mg PO DAILY #30 tab 03/15/19 05/14/20 Rx warfarin 2.5 mg PO 2XWK 04/17/19 05/14/20 History hydralazine 50 mg tablet 25 mg PO TID 04/19/19 05/14/20 History cholecalciferol (vitamin D3) 2,000 unit PO QAM 06/01/19 05/14/20 History [Vitamin D3] polyethylene glycol 3350 [Miralax] 17 g PO BID 06/01/19 05/14/20 History amlodipine 5 mg PO QAM 05/14/20 05/14/20 History buspirone 5 mg PO BID 05/14/20 05/14/20 History carvedilol 12.5 mg PO BID 05/14/20 05/14/20 History hydrochlorothiazide 25 mg PO QAM 05/14/20 05/14/20 History potassium chloride 10 meq PO QDL 05/14/20 05/14/20 History simvastatin 20 mg PO HS 05/14/20 05/14/20 History triamcinolone acetonide 1 applic TOPICAL BID 05/14/20 05/14/20 History warfarin 5 mg PO 5XWK 05/14/20 05/14/20 History Past Med/Surg History Medical History (Updated 05/15/20 @ 06:35 by Thien Arteaga) Abdominal pain (Resolved) Abnormal vaginal bleeding (Resolved) Acute bronchitis (Resolved) Appetite loss (Resolved) Arthritis (Chronic 04/17/13) Benign hypertension (Chronic 04/17/13) Bloating (Resolved) Bronchitis (Resolved 04/17/13) Change in bowel habits (Resolved) Constipation Cough (Resolved) Encounter for preprocedural cardiovascular examination (Resolved) 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) Foot pain, right (Resolved) Hypokalemia (Chronic) Knee pain (Resolved) Left knee pain (Resolved) Leg pain, right (Resolved) Malignant melanoma of skin (Chronic) Nausea (Resolved) Neck pain (Resolved) Pain of left calf (Resolved) Periorbital hematoma of left eye (Resolved) Post-menopausal bleeding (Resolved) Shortness of breath (Resolved) Shoulder pain, right (Resolved) Situational depression (Chronic) Thickened endometrium (Resolved) Toe joint pain (Resolved) Urinary tract infection, acute (Resolved) Urinary urgency (Resolved) Vaginal discharge (Resolved) Viral gastroenteritis (Resolved) Surgical History (Updated 05/14/20 @ 16:55 by Fern Ojeda PA-C) History of surgery on arm for malignant melanoma with LN resection Hx of hernia repair Hx of hysterectomy Family History Father Myocardial infarction Brother Myocardial infarction Other Family history non-contributory Denies family history of Ovarian cancer Prostate cancer Breast cancer Colorectal cancer Social History Smoking Status: Never smoker Hx Alcohol Use: No Hx Substance Use: No Preferred Language: Estonian Communication Ability: Effective 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 Beliefs That Will Affect Care: None marital status: Current Living Situation: Family Current Living Situation Comment: with daughter and son in law current occupational status: retired How many Children do You have: 2 Other Information That Helps Us Care for You: No Feels Safe at Home: Yes Safety Concerns: Feels Safe At This Time caffeine: No Dental Care, Regularly: No Physical Activity Frequency: Does not Exercise Seatbelt Use: always Sunscreen Use: No Review of Systems Review of Systems: All systems reviewed & are unremarkable except as noted in HPI & below Constitutional: + chills and + fatigue; no fever and no sweats Eyes: blurry at times but reported still able to see alright. recent eye exam in the past month Ear, Nose, Mouth, Throat: no sore throat and no dysphagia Respiratory: + cough, + chest congestion, + dyspnea and + dyspnea on exertion; no change in sputum, no pain on inspiration and no pain with cough Cardiovascular: + chest pain (with radiation to L arm), + dyspnea on exertion and + edema Gastrointestinal: + constipation; no abdominal pain, no nausea and no vomiting Genitourinary: no dysuria and no hematuria Musculoskeletal: no problem reported Integumentary: no rash and no lesions Neurologic: no falls and no numbness Psychiatric: no behavioral changes and no irritability Endocrine: + fatigue; no polydipsia and no polyphagia Allergy / Immunological: + cough and + dyspnea; no rash Physical Exam Constitutional: WD/WN, vitals as above + obese; no acute distress Eyes: + anicteric sclerae and PERRL ENMT: external ear and nose normal, oropharynx normal Neck: trachea midline, no thyromegaly Respiratory: normal respiratory effort, lungs clear to auscultation Auscultation: + diminished lung sounds Cardiovascular: Rate/Rhythm: regular rate and regular rhythm Vessels: no JVD Extremities: + edema (bilateral LE edema to rodriguez. Also with RUE edema - chronic s/p LN resection) Gastrointestinal (Abdomen): normal bowel sounds, soft, nontender, no hepatosplenomegaly Musculoskeletal: no cyanosis or clubbing, extremities motor strength 5/5 Skin: no rashes, warm and dry Neurologic: PERRL, EOMI, accommodation nl, no face palsy, no dysarthria Psychiatric: Orientation: alert and oriented x 3 Lymphatic: no cervical or axillary lymphadenopathy Results & Data Results & Data ([facility]) Vital Signs (Past 12 Hours) Vital Signs Temp Pulse Resp BP Pulse Ox 05/14/20 12:38 70 18 176/125 H 97 05/14/20 12:30 70 17 97 05/14/20 12:16 72 16 94 05/14/20 11:28 36.8 C 71 22 164/87 H 95 Laboratory Results 05/14/20 05/14/20 05/14/20 Range/Units 16:50 13:10 12:08 WBC (4.8-10.8) K/uL RBC (4.2-5.4) M/uL Hgb (12.0-16.0) g/dL Hct (37-47) % MCV (80-100) fL MCH (25-34) pg MCHC (32-36) g/dL RDW Std Deviation (36.4-46.3) fL RDW Coeff of Deep (11.5-14.5) % Plt Count (130-400) K/uL MPV (7.4-10.4) fL Immature Gran % (Auto) % Neut % (Auto) % Lymph % (Auto) % [place] % (Auto) % Eos % (Auto) % Baso % (Auto) % Neut # (Auto) (1.4-6.5) K/uL Lymph # (Auto) (1.2-3.4) K/uL [place] # (Auto) (0.11-0.59) K/uL Eos # (Auto) (0-0.5) K/uL Baso # (Auto) (0-0.2) K/uL Immature Gran # (Auto) (0.00-0.02) K/uL PT (9.0-12.0) Seconds INR (0.9-1.1) APTT (21.0-31.0) Seconds PTT Ratio Sodium 131 L (136-145) mmol/L Potassium 3.7 (3.5-5.1) mmol/L Chloride 98 (98-107) mmol/L Carbon Dioxide 25 (21-32) mmol/L Anion Gap 7.0 (3-11) BUN 21 H (7-18) mg/dl Creatinine 0.89 (0.6-1.2) mg/dl Est Cr Clr Drug Dosing 54.3 ml/min Est GFR ( Amer) 69.0 Est GFR (Non-Af Amer) 59.5 BUN/Creatinine Ratio 23.2 H (10-20) Glucose 99 (70-99) mg/dl Calcium 9.3 (8.5-10.1) mg/dl Total Bilirubin 0.6 (0.2-1) mg/dl AST 14 L (15-37) U/L ALT 22 (12-78) U/L Alkaline Phosphatase 65 (45-117) U/L Troponin I < 0.015 (0-0.045) ng/ml NT-Pro-B Natriuret Pep 1173 (0-1800) pg/ml Total Protein 6.8 (6.4-8.2) gm/dl Albumin 3.1 L (3.4-5.0) gm/dl Globulin 3.7 (2.5-4.0) gm/dl Albumin/Globulin Ratio 0.8 L (0.9-2) Urine Color Yellow Urine Appearance Clear (Clear) Urine pH 7.5 (4.5-7.5) Ur Specific [place] 1.007 (1.000-1.030) Urine Protein Negative (Negative) Urine Glucose (UA) Negative (Negative) Urine Ketones Negative (Negative) Urine Blood Trace H (Negative) Urine Nitrite Negative (Negative) Urine Bilirubin Negative (Negative) Urine Urobilinogen Negative (Negative) Ur Leukocyte Esterase 3+ H (Negative) Urine WBC (Auto) 5-10 H (0-5) /hpf Urine RBC (Auto) 0-4 (0-4) /hpf U Hyaline Cast (Auto) 0 (0-5) /lpf U Epithel Cells (Auto) 20-30 H (0-5) /lpf Urine Bacteria (Auto) Negative (Negative) 05/14/20 05/14/20 Range/Units 12:08 12:08 WBC 8.77 (4.8-10.8) K/uL RBC 4.63 (4.2-5.4) M/uL Hgb 14.1 (12.0-16.0) g/dL Hct 42.3 (37-47) % MCV 91.4 (80-100) fL MCH 30.5 (25-34) pg MCHC 33.3 (32-36) g/dL RDW Std Deviation 44.9 (36.4-46.3) fL RDW Coeff of Deep 13.5 (11.5-14.5) % Plt Count 250 (130-400) K/uL MPV 10.2 (7.4-10.4) fL Immature Gran % (Auto) 0.2 % Neut % (Auto) 71.7 % Lymph % (Auto) 12.9 % [place] % (Auto) 13.7 % Eos % (Auto) 1.3 % Baso % (Auto) 0.2 % Neut # (Auto) 6.29 (1.4-6.5) K/uL Lymph # (Auto) 1.13 L (1.2-3.4) K/uL [place] # (Auto) 1.20 H (0.11-0.59) K/uL Eos # (Auto) 0.11 (0-0.5) K/uL Baso # (Auto) 0.02 (0-0.2) K/uL Immature Gran # (Auto) 0.02 (0.00-0.02) K/uL PT 19.6 H (9.0-12.0) Seconds INR 1.9 H (0.9-1.1) APTT 36.5 H (21.0-31.0) Seconds PTT Ratio 1.3 Sodium (136-145) mmol/L Potassium (3.5-5.1) mmol/L Chloride (98-107) mmol/L Carbon Dioxide (21-32) mmol/L Anion Gap (3-11) BUN (7-18) mg/dl Creatinine (0.6-1.2) mg/dl Est Cr Clr Drug Dosing ml/min Est GFR ( Amer) Est GFR (Non-Af Amer) BUN/Creatinine Ratio (10-20) Glucose (70-99) mg/dl Calcium (8.5-10.1) mg/dl Total Bilirubin (0.2-1) mg/dl AST (15-37) U/L ALT (12-78) U/L Alkaline Phosphatase (45-117) U/L Troponin I (0-0.045) ng/ml NT-Pro-B Natriuret Pep (0-1800) pg/ml Total Protein (6.4-8.2) gm/dl Albumin (3.4-5.0) gm/dl Globulin (2.5-4.0) gm/dl Albumin/Globulin Ratio (0.9-2) Urine Color Urine Appearance (Clear) Urine pH (4.5-7.5) Ur Specific [place] (1.000-1.030) Urine Protein (Negative) Urine Glucose (UA) (Negative) Urine Ketones (Negative) Urine Blood (Negative) Urine Nitrite (Negative) Urine Bilirubin (Negative) Urine Urobilinogen (Negative) Ur Leukocyte Esterase (Negative) Urine WBC (Auto) (0-5) /hpf Urine RBC (Auto) (0-4) /hpf U Hyaline Cast (Auto) (0-5) /lpf U Epithel Cells (Auto) (0-5) /lpf Urine Bacteria (Auto) (Negative) Diagnostic Findings CXR IMPRESSION: Chronic change. No acute process. Supervising Physician Co-Signing Physician Notes Attending Attestation & Admit Note: Pt seen/examined, chart reviewed, admission care plan d/w GILL Ojeda. I agree w/ the pérez components of her admission documentation. 84yo female with pacemaker status, chronic systolic CHF, HTN, and chronic coumadin 2nd to a.fib presenting w/ c/o chest pain episodes, dyspnea, and cough. Presenting cxr without acute findings. Initial troponin was negative. During my assessment (patient had been placed in her hospital room) she c/o posterior neck pain and upper back pain that had started upon admission. Denied any weakness or paresthesias. PMH, PSH, allergies, meds, sochx, famhx - reviewed VSS, no fever gen - NAD neck - decreased passive ROM (rotation, flexion, etc); no posterior cervical tenderness to palpation heart - RRR, s1 s2, no JVD lungs - CTA b/l abd - soft NT ext - LUE lymphedema; trace edema legs b/l labs - cbc, bmp wnl except Na 131; Cr wnl; trop neg cxr noted A/P - 1. chest pain - serial troponins, telemetry, pacer interrogation, repeat echo, [facility] cardiology consult requested 2. hyponatremia- likely 2nd HCTZ in setting of chronic CHF; bmp am 3. neck pain - likely has baseline DJD; voltaren gel qid 4. chronic systolic CHF - appears compensated on exam 5. pacer status - interrogation; upgrade had been recommended but pt had refused; defer to cardiology 6. a.fib - INR 1.9; cont coumadin; daily INR observation status for now Thien Arteaga MD PG Care Time/CCT Total # of Minutes Spent Total Time Spent with Patient: Total time spent is greater than 50% in coordination of care (as documented) at patient's floor/unit and/or counseling patient: Coding Level of Care Code 78391 OBS Care - Level 3 Diagnoses Substernal chest pain R07.2 Cough R05 Shortness of breath R06.02 Heart disease I51.9 Symptomatic bradycardia R00.1 Benign hypertension I10 Atrial fibrillation I48.91 half-way current use of 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
[2020-05-14 16:59] LABS: Appearance Urine Clear (Clear); Bacteria Urine Automated Negative (Negative); Bilirubin Urine Negative (Negative); Blood Urine Trace (Negative); Cast Urine Automated 0 /lpf (0-5); Color Urine Yellow; Epithelial Cell Urine Auto 20-30 /lpf (0-5); Glucose Urine UA Negative (Negative); Ketones Urine Negative (Negative); Leukocyte Esterase Urine 3+ (Negative); Nitrite Urine Negative (Negative); Protein Urine Negative (Negative); RBC Urine Automated 0-4 /hpf (0-4); Specific Gravity Urine 1.007 (1.000-1.030); Urobilinogen Urine Negative (Negative); pH Urine 7.5 (4.5-7.5)
[2020-05-14] MEDS ORDERED: ALBUTEROL 0.083% NEBU SOLN 3 ML VIAL NEB PRN (18:22)
[2020-05-14] MEDS ORDERED: ALUMINUM/MAGNESIUM SUSP 30 ML UDC PO PRN (18:22)
[2020-05-14] MEDS ORDERED: ONDANSETRON INJ 2 MG/ML 2 ML VIAL IV PRN (18:22)
[2020-05-14] MEDS ORDERED: NITROGLYCERIN SL 0.4 MG/TAB TAB SL PRN (18:22)
[2020-05-14] MEDS ORDERED: WARFARIN SOD 2.5 MG TAB PO SCH (19:00)
[2020-05-14] MEDS: ACETAMINOPHEN 325 MG TAB PO PRN (19:52)
[2020-05-14] MEDS: SIMVASTATIN 20 MG TAB PO SCH (20:02)
[2020-05-14] MEDS: TRIAMCINOLONE ACET 0.1% CR 15 GM TUBE TOP SCH (20:03)
[2020-05-14] MEDS: carvediloL 12.5 MG TAB PO SCH (20:03)
[2020-05-14] MEDS: POLYETHYLENE (MIRALAX) 17 GM PACK PO SCH (20:04)
[2020-05-14] MEDS: DICLOFENAC SOD 1% GEL 100 GM TUBE EXT SCH (21:29)
--- NOTE | 2020-05-14 22:45 | Electrocardiogram Report ---
Test Reason : Blood Pressure : / mmHG Vent. Rate : 074 BPM Atrial Rate : 416 BPM P-R Int : 000 ms QRS Dur : 202 ms QT Int : 450 ms P-R-T Axes : 000 -82 095 degrees QTc Int : 499 ms Poor data quality, interpretation may be adversely affected Ventricular-paced rhythm Abnormal ECG When compared with ECG of 01-JUN-2019 17:00, No significant change Confirmed by Mookie Rendon ([id number]) on 05/14/2020 10:44:50 PM Referred By: REFERRED SELF Confirmed By:Mookie Rendon
[2020-05-15] MEDS: ACETAMINOPHEN 325 MG TAB PO PRN (00:38)
[2020-05-15 06:54] LABS: Basophils # (auto) 0.01 K/uL (0-0.2); Basophils % (auto) 0.2 %; Eosinophils # (auto) 0.07 K/uL (0-0.5); Eosinophils % (auto) 1.4 %; Hematocrit (blood only) 39.8 % (37-47); Hemoglobin 13.7 g/dL (12.0-16.0); Immature Granulocytes # (auto) 0.01 K/uL (0.00-0.02); Immature Granulocytes % (auto) 0.2 %; Lymphocytes # (auto) 0.96 K/uL (1.2-3.4); Lymphocytes % (auto) 18.8 %; Mean Corpuscular Hemoglobin 31.1 pg (25-34); Mean Corpuscular Hgb Conc 34.4 g/dL (32-36); Mean Corpuscular Volume 90.5 fL (80-100); Mean Platelet Volume 9.9 fL (7.4-10.4); Monocytes # (auto) 0.81 K/uL (0.11-0.59); Monocytes % (auto) 15.9 %; Neutrophils # (auto) 3.25 K/uL (1.4-6.5); Neutrophils % (auto) 63.5 %; Platelet Count 198 K/uL (130-400); RDW Coefficient of Variation 13.3 % (11.5-14.5); RDW Standard Deviation 44.1 fL (36.4-46.3); White Blood Count 5.11 K/uL (4.8-10.8)
[2020-05-15 07:09] LABS: Prothrombin Time 19.9 Seconds (9.0-12.0)
[2020-05-15 07:23] LABS: BUN Creatinine Ratio 21.9 (10-20); Calcium 8.6 mg/dl (8.5-10.1); Creatinine Clr Calc Pharmacy 53.3 ml/min; Est GFR (African American) 68.1; Est GFR (Non-African American) 58.7; Potassium 3.5 mmol/L (3.5-5.1)
[2020-05-15] MEDS: hydroCHLOROthiazide 25 MG TAB PO SCH (08:21)
[2020-05-15] MEDS: CHOLECALCIFEROL 1,000 UNITS 25 MCG TAB PO SCH (08:24)
[2020-05-15] MEDS: carvediloL 12.5 MG TAB PO SCH ×2 (08:24→20:50)
[2020-05-15] MEDS: LOSARTAN POTASSIUM 50 MG TAB PO SCH (08:25)
[2020-05-15] MEDS: AMLODIPINE BESYLATE 5 MG TAB PO SCH (08:25)
[2020-05-15] MEDS: TRIAMCINOLONE ACET 0.1% CR 15 GM TUBE TOP SCH ×2 (08:25→20:54)
[2020-05-15] MEDS: POLYETHYLENE (MIRALAX) 17 GM PACK PO SCH ×2 (08:26→20:52)
[2020-05-15] MEDS: DICLOFENAC SOD 1% GEL 100 GM TUBE EXT SCH ×4 (08:27→20:53)
--- NOTE | 2020-05-15 08:52 | Cardiology Consultation ---
Date of Consultation May 15, 2020 Assessment & Plan (1) Chest pressure: Patient states chest pressure / arm pain symptoms have resolved. Troponin I negative x 3. EKG nondiagnostic for ischemic due to chronic RV pacing. Echo ordered by primary service, and is pending. Discussed options with patient. I recommend further risk stratification with a pharmacological nuclear stress test. Patient declines, favoring conservative medical management. Topical nitrates already discontinued in the computer record, however , still applied. I will clarify with nursing, and add Imdur. Increase activity as tolerated. Await echo. History of Present Illness Attending Physician: Tee Negrete History of Present Illness Kathy Tobin is an 84 year old female seen in cardiology consultation per the request of Fern Ojeda PA-C for the evaluation of chest pain. The patient states that on the evening leading up to admission she noted a pressure sensation in her chest and pain in her left arm while laying in bed. She has had other similar episodes recently. Presently she is sitting in the bedside chair. Topical nitroglycerin ointment has been applied, and she states that she feels well with resolution of the pressure. As discussed in her admission history and physical, the patient had a routine echocardiogram performed in December, with findings of decline in her ejection fraction to the range of 35 to 39% with abnormal septal motion consistent with chronic right ventricular pacing. 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 She had been seen in outpatient EP consultation by Dr. Carlisle and at that time the patient declined having significant congestive heart failure symptoms, and due to lack of clinical symptoms and per patient preference ongoing observation was recommended rather than proceeding to upgrade to a cardiac resynchronization capable device. Patient had declined nuclear stress testing at that time. The patient's troponin has been negative x3. 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 Cage without complication. Med[employer]onic Advisa SR MRI SureScan, Model #A3SR01, Serial #[id number]. The RV lead - [employer], Model #5076, Serial #[id number] and is a bipolar active fixation steroid-tipped MRI compatible lead. 3.CHADS2 Score of 2 out of 6, chronic coumadin anticoagulation. 4.Mild to moderate mitral regurgitation 5.Suspected sleep apnea with evaluation declined. 6.Hypertension 7.Hyperlipidemia 8.Malignant melanoma, left arm 9.Uterine cancer status post January 2016 hysterectomy 10.Obesity 11.Osteoarthritis 12.Diverticulosis Allergies Allergy/AdvReac Type Severity Reaction Status Date / Time lisinopril AdvReac Mild COUGH Verified 05/14/20 12:57 oxycodone AdvReac Mild DIZZINESS Verified 05/14/20 12:57 Lightheaded Home Medications Home Medications Medication Instructions Recorded Confirmed Type docusate sodium 100 mg capsule 100 mg PO BID cap 03/15/19 05/14/20 History losartan 100 mg tablet 100 mg PO DAILY #30 tab 03/15/19 05/14/20 Rx warfarin 2.5 mg PO 2XWK 04/17/19 05/14/20 History hydralazine 50 mg tablet 25 mg PO TID 04/19/19 05/14/20 History cholecalciferol (vitamin D3) 2,000 unit PO QAM 06/01/19 05/14/20 History [Vitamin D3] polyethylene glycol 3350 [Miralax] 17 g PO BID 06/01/19 05/14/20 History amlodipine 5 mg PO QAM 05/14/20 05/14/20 History buspirone 5 mg PO BID 05/14/20 05/14/20 History carvedilol 12.5 mg PO BID 05/14/20 05/14/20 History hydrochlorothiazide 25 mg PO QAM 05/14/20 05/14/20 History potassium chloride 10 meq PO QDL 05/14/20 05/14/20 History simvastatin 20 mg PO HS 05/14/20 05/14/20 History triamcinolone acetonide 1 applic TOPICAL BID 05/14/20 05/14/20 History warfarin 5 mg PO 5XWK 05/14/20 05/14/20 History Patient History Medical History (Updated 05/15/20 @ 09:49 by Robert Gomez DO) Abdominal pain (Resolved) Abnormal vaginal bleeding (Resolved) Acute bronchitis (Resolved) Appetite loss (Resolved) Arthritis (Chronic 04/17/13) Benign hypertension (Chronic 04/17/13) Bloating (Resolved) Bronchitis (Resolved 04/17/13) Change in bowel habits (Resolved) Constipation Cough (Resolved) Encounter for preprocedural cardiovascular examination (Resolved) 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) Foot pain, right (Resolved) Hypokalemia (Chronic) Knee pain (Resolved) Left knee pain (Resolved) Leg pain, right (Resolved) Malignant melanoma of skin (Chronic) Nausea (Resolved) Neck pain (Resolved) Pain of left calf (Resolved) Periorbital hematoma of left eye (Resolved) Post-menopausal bleeding (Resolved) Shortness of breath (Resolved) Shoulder pain, right (Resolved) Situational depression (Chronic) Thickened endometrium (Resolved) Toe joint pain (Resolved) Urinary tract infection, acute (Resolved) Urinary urgency (Resolved) Vaginal discharge (Resolved) Viral gastroenteritis (Resolved) Surgical History (Updated 05/14/20 @ 16:55 by Fern Ojeda PA-C) History of surgery on arm for malignant melanoma with LN resection Hx of hernia repair Hx of hysterectomy Family History Father Myocardial infarction Brother Myocardial infarction Other Family history non-contributory Denies family history of Ovarian cancer Prostate cancer Breast cancer Colorectal cancer Social History Smoking Status: Never smoker Hx Alcohol Use: No Hx Substance Use: No Preferred Language: Upper Sorbian Communication Ability: Effective 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 Beliefs That Will Affect Care: None marital status: Current Living Situation: Family Current Living Situation Comment: with daughter and son in law current occupational status: retired How many Children do You have: 2 Other Information That Helps Us Care for You: No Feels Safe at Home: Yes Safety Concerns: Feels Safe At This Time caffeine: No Dental Care, Regularly: No Physical Activity Frequency: Does not Exercise Seatbelt Use: always Sunscreen Use: No Review of Systems Review of Systems: All systems reviewed & are unremarkable except as noted in HPI & below Physical Exam Physical Exam: Temp Pulse Resp BP Pulse Ox 36.7 C 69 20 149/74 H 93 05/15/20 07:35 05/15/20 07:35 05/15/20 07:35 05/15/20 07:35 05/15/20 07:35 Constitutional: no acute distress Respiratory: normal respiratory effort, lungs clear to auscultation Cardiovascular: Rate/Rhythm: regular rhythm Heart Sounds: no murmur Extremities: no edema Gastrointestinal (Abdomen): normal bowel sounds, soft, nontender, no hepatosplenomegaly Neurologic: PERRL, EOMI, accommodation nl, no face palsy, no dysarthria Results & Data ([facility]) Vital Signs (Past 12 Hours) Vital Signs Temp Pulse Pulse Resp BP Pulse Ox 05/15/20 07:35 36.7 C 69 20 149/74 H 93 05/15/20 04:10 36.7 C 71 20 126/72 93 05/14/20 23:46 70 05/14/20 23:21 36.6 C 67 20 128/70 94 Laboratory Results Cardiac Enzymes 05/14/20 05/14/20 05/14/20 Range/Units 12:08 13:10 18:43 AST 14 L (15-37) U/L Troponin I < 0.015 < 0.015 (0-0.045) ng/ml 05/15/20 Range/Units 00:27 AST (15-37) U/L Troponin I < 0.015 (0-0.045) ng/ml Coagulation INR level 05/15/2020: 2 05/14/20 05/15/20 Range/Units 12:08 06:26 PT 19.6 H 19.9 H (9.0-12.0) Seconds APTT 36.5 H (21.0-31.0) Seconds CBC 05/14/20 05/15/20 Range/Units 12:08 06:26 WBC 8.77 5.11 (4.8-10.8) K/uL RBC 4.63 4.40 (4.2-5.4) M/uL Hgb 14.1 13.7 (12.0-16.0) g/dL Hct 42.3 39.8 (37-47) % Plt Count 250 198 (130-400) K/uL Neut # (Auto) 6.29 3.25 (1.4-6.5) K/uL Lymph # (Auto) 1.13 L 0.96 L (1.2-3.4) K/uL [place] # (Auto) 1.20 H 0.81 H (0.11-0.59) K/uL Eos # (Auto) 0.11 0.07 (0-0.5) K/uL Baso # (Auto) 0.02 0.01 (0-0.2) K/uL Comprehensive Metabolic Panel 05/14/20 05/14/20 05/15/20 Range/Units 12:08 13:10 06:26 Sodium 131 L 134 L (136-145) mmol/L Potassium 3.7 3.5 (3.5-5.1) mmol/L Chloride 98 98 (98-107) mmol/L Carbon Dioxide 25 29 (21-32) mmol/L BUN 21 H 20 H (7-18) mg/dl Creatinine 0.89 0.90 (0.6-1.2) mg/dl Glucose 99 85 (70-99) mg/dl Calcium 9.3 8.6 (8.5-10.1) mg/dl AST 14 L (15-37) U/L ALT 22 (12-78) U/L Alkaline Phosphatase 65 (45-117) U/L Total Protein 6.8 (6.4-8.2) gm/dl Albumin 3.1 L (3.4-5.0) gm/dl Intake and Output 05/14/20 05/15/20 05/15/20 22:59 06:59 14:59 Intake Total 100 / 300 200 / 300 Output Total 600 / 600 Balance -500 / -300 200 / -300 Intake: Oral 100 / 300 200 / 300 Output: Urine 600 / 600 Other: Weight 99.7 kg 99.2 kg Diagnostic Findings EKG tracings performed yesterday 05/14/2020 and again today 05/15/2020 revealed ventricular paced rhythm in the range of 70 to 80 bpm. The EKG is nondiagnostic for ischemia due to the chronic ventricular paced QRS complexes. Telemetry also reveals ventricular paced QRS complexes in the range of 70 to 80 bpm.
[2020-05-15] MEDS: ISOSORBIDE MONO EXTENDED REL 30 MG TABCR PO SCH (11:50)
[2020-05-15] MEDS: POTASSIUM CHLORIDE 10 MEQ TABCR PO SCH (11:50)
--- NOTE | 2020-05-15 15:40 | Communication Note ---
Date of Service: May 15, 2020 Remote device interrogation results reviewed with [employer] outside energy sales representatives. Normal pacing thresholds. RV pacing 99% of the time. Generator with 7 years of longevity. Several very brief high Ventricular rate episodes noted, consistent with AF or non brief non sustained VT. With patient's consent, I called her daughter Patricia and reviewed the findings and plans. I am optimistic pt may be ready for discharge tomorrow.
[2020-05-15] MEDS ORDERED: WARFARIN SOD 5 MG TAB PO SCH (16:00)
[2020-05-15] MEDS: SIMVASTATIN 20 MG TAB PO SCH (20:51)
--- NOTE | 2020-05-15 22:47 | Hospitalist Progress Note ---
Date of Service May 15, 2020 Assessment & Plan (1) Substernal chest pain: * Obs PCU cp r/o. EKG with ventricular pacing. BNP only 1173. Trop <0.015. CXR with mild stable cardiomegaly, no acute process. WBC 8.7k. Afebrile. * Serial troponin * Cardiology consult -- appreciate assistance. Pt follows with [facility] cardiology. Recent reported symptomatic bradycardia and had questioned upgrading to BiV pacer and f/u stress testing but had been deferred at that time. 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 * Evaluated by cardio, * patient is refusing further studies: does not want stress test. (2) Cough: * CXR negative for acute process. * Given 20mg IV lasix x 1 in ER --> no further cough on exam or during our conversation * Supplemental O2 as needed, although pt 97% on RA * Albuterol neb prn (3) Shortness of breath: * Suspect some level of deconditioning as patient lives with daughter and son-in-law and ambulates in her room but does have shortness of breath coming and going for a while now * See above under cough. No loss of taste/smell/pneumonia on imaging, lymphopenia, etc. (4) Heart disease: * Follows with [facility], Parminder Lowery. Recently evaluated by EP, Dr. Carlisle, for possible upgrade to BiV device * Cardiology consulted -- appreciate assistance * Last ECHO December 2019 with reported EF 35-39%, presumed to be non-ischemic due to RV pacing * Pacemaker interrogation * Continue home carvediolol 12.5mg BID, Losartan 100mg 100mg, simvastatin 20mg HS (5) Symptomatic bradycardia: * And was referred to EP as above (6) Benign hypertension: * Chronic. 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 But she feels weak today and tired. She has no new symptoms today Review of Systems Review of Systems: All systems reviewed & are unremarkable except as noted in HPI & below Physical Exam Physical Exam: Constitutional: WD/WN, vitals as above + obese; no acute distress Eyes: + anicteric sclerae and PERRL ENMT: external ear and nose normal, oropharynx normal Neck: trachea midline, no thyromegaly Respiratory: normal respiratory effort, lungs clear to auscultation Auscultation: + diminished lung sounds Cardiovascular: Rate/Rhythm: regular rate and regular rhythm Vessels: no JVD Extremities: + edema (bilateral LE edema to rodriguez. Also with RUE edema - chronic s/p LN resection) Gastrointestinal (Abdomen): normal bowel sounds, soft, nontender, no hepatosplenomegaly Musculoskeletal: no cyanosis or clubbing, extremities motor strength 5/5 Skin: no rashes, warm and dry Neurologic: PERRL, EOMI, accommodation nl, no face palsy, no dysarthria Psychiatric: Orientation: alert and oriented x 3 Lymphatic: no cervical or axillary lymphadenopathy Results & Data Results & Data ([facility]) Vital Signs (Past 12 Hours) Vital Signs Temp Pulse Pulse Resp BP Pulse Ox 05/15/20 19:00 36.4 C L 71 18 162/73 H 92 05/15/20 15:19 70 05/15/20 15:00 36.6 C 70 20 111/68 94 05/15/20 11:33 36.4 C L 72 20 134/80 95 PG Care Time/CCT Total # of Minutes Spent Total Time Spent with Patient: Total time spent is greater than 50% in coordination of care (as documented) at patient's floor/unit and/or counseling patient: Coding Level of Care Code 43771 Subseq Obs Care Lvl 3 Diagnoses Substernal chest pain R07.2 Cough R05 Shortness of breath R06.02 Heart disease I51.9 Symptomatic bradycardia R00.1 Benign hypertension I10 Atrial fibrillation I48.91 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
[2020-05-16 06:33] LABS: INR 2.3 (0.9-1.1)
[2020-05-16 06:53] LABS: BUN Creatinine Ratio 27.4 (10-20); Calcium 8.9 mg/dl (8.5-10.1); Creatinine Clr Calc Pharmacy 49.5 ml/min; Est GFR (African American) 62.2; Est GFR (Non-African American) 53.6; Potassium 3.7 mmol/L (3.5-5.1)
[2020-05-16] MEDS ORDERED: MICONAZOLE NITRATE POWDER 43 GM EXT PRN (07:41)
[2020-05-16] MEDS: carvediloL 12.5 MG TAB PO SCH (07:58)
[2020-05-16] MEDS: POLYETHYLENE (MIRALAX) 17 GM PACK PO SCH (07:58)
[2020-05-16] MEDS: hydroCHLOROthiazide 25 MG TAB PO SCH (07:58)
[2020-05-16] MEDS: LOSARTAN POTASSIUM 50 MG TAB PO SCH (07:58)
[2020-05-16] MEDS: AMLODIPINE BESYLATE 5 MG TAB PO SCH (07:58)
[2020-05-16] MEDS: DICLOFENAC SOD 1% GEL 100 GM TUBE EXT SCH ×2 (07:58→11:52)
[2020-05-16] MEDS: ISOSORBIDE MONO EXTENDED REL 30 MG TABCR PO SCH (07:58)
[2020-05-16] MEDS: CHOLECALCIFEROL 1,000 UNITS 25 MCG TAB PO SCH (07:58)
[2020-05-16] MEDS: TRIAMCINOLONE ACET 0.1% CR 15 GM TUBE TOP SCH (07:59)
[2020-05-16 09:57] VITALS: PULSE 70
--- NOTE | 2020-05-16 10:11 | Cardiology Progress Note ---
Date of Service May 16, 2020 Assessment & Plan (1) Chest pressure: Chest pain. Resolved. Troponin levels negative. Patient declines stress testing. Imdur added to medication regimen. 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 Prolonged resting nausea without aerobic exertion,does not seem like this is an anginal equivalent. Continue to observe. Admission and Anticipated Discharge Date Admission Date: May 14, 2020 Subjective Patient sitting up in the bedside chair. She states she "just does not feel well". Has upset stomach. Telemetry reveals Ventricular pacing in the 70s. Review of Systems Review of Systems: All systems reviewed & are unremarkable except as noted in HPI & below Physical Exam Physical Exam: Temp Pulse Resp BP Pulse Ox 36.5 C 70 20 155/86 H 94 05/16/20 07:26 05/16/20 09:53 05/16/20 07:26 05/16/20 07:26 05/16/20 07:26 Constitutional: no acute distress Respiratory: normal respiratory effort, lungs clear to auscultation Cardiovascular: Rate/Rhythm: regular rhythm Heart Sounds: no murmur Vessels: no JVD Extremities: no edema Gastrointestinal (Abdomen): normal bowel sounds, soft, nontender, no hepatosplenomegaly Neurologic: PERRL, EOMI, accommodation nl, no face palsy, no dysarthria Results & Data ([facility]) Vital Signs (Past 12 Hours) Vital Signs Temp Pulse Pulse Resp BP Pulse Ox 05/16/20 09:53 70 05/16/20 07:26 36.5 C 68 20 155/86 H 94 05/16/20 03:00 36.4 C L 68 20 115/71 95 05/16/20 00:39 70 05/16/20 00:08 36.8 C 71 20 129/76 92 Laboratory Results Coagulation INR 2.3 05/16/20 Range/Units 05:44 PT 23.0 H (9.0-12.0) Seconds Comprehensive Metabolic Panel 05/16/20 Range/Units 05:44 Sodium 130 L (136-145) mmol/L Potassium 3.7 (3.5-5.1) mmol/L Chloride 96 L (98-107) mmol/L Carbon Dioxide 28 (21-32) mmol/L BUN 26 H (7-18) mg/dl Creatinine 0.97 (0.6-1.2) mg/dl Glucose 85 (70-99) mg/dl Calcium 8.9 (8.5-10.1) mg/dl Intake and Output 05/15/20 05/16/20 05/16/20 22:59 06:59 14:59 Intake Total 550 / 1120 Balance 550 / 1120 Intake: Oral 550 / 1120 Other: Weight 99.7 kg
[2020-05-16 11:18] VITALS: BP 94/53; TEMP 97.5; O2SAT 96
[2020-05-16] MEDS: POTASSIUM CHLORIDE 10 MEQ TABCR PO SCH (11:51)
--- NOTE | 2020-05-16 23:43 | Electrocardiogram Report ---
Test Reason : Blood Pressure : / mmHG Vent. Rate : 075 BPM Atrial Rate : 083 BPM P-R Int : 000 ms QRS Dur : 202 ms QT Int : 472 ms P-R-T Axes : 000 -77 093 degrees QTc Int : 527 ms Ventricular-paced rhythm Abnormal ECG When compared with ECG of 14-MAY-2020 11:25, No significant change was found Confirmed by Mookie Rendon ([id number]) on 05/16/2020 11:43:00 PM Referred By: REFERRED SELF Confirmed By:Mookie Rendon
[2020-05-17] MEDS ORDERED: hydroCHLOROthiazide 25 MG TAB PO SCH (09:00)
--- NOTE | 2020-05-23 06:48 | Discharge Summary ---
Date of Service May 16, 2020 Admission HPI Per Admitting Provider 84 year old female with PMHx significant for for CHF, permanent afib, HTN, HLD, hx malignant melanoma presented to the emergency department for progressive shortness of breath, cough, and chest pain that radiated to her left arm. She states her chest pain comes and goes from time to time. Unsure of frequency. Can occur at rest or with activity and she notes sometimes it depends on what she is doing but other times it does not. She has a pacemaker and had been seen by [facility] (follows with Parminder Lowery) and has been seen this year by Dr. Carlisle for a possible upgrade of her pacemaker to a BiV device. She states the cough and congestion having been occurring for the past "several days" and states she has been producing phlegm she believes but has not been able to cough anything up. She notes associated lower extremity edema that has been progressively getting worse. She notes increased fatigue over the past several months. Never any reported history of issues with her thyroid. She also notes that she has been dealing with constipation for years and takes miralax twice daily for this. She did take her morning pills. Denies fevers, chills, loss of smell/appetite, contact with anyone with COVID or symptoms thereof. ER Course: EKG with ventricular paced rhythm 74bpm (replaced afib). CXR with stable cardiomegaly, no acute process. CBC with WBC 8.7km h/h 14/42. Plt 250. BMP with hyponatremia, Na 131, K 3.7. BUN 21, Cr 0.89. Lasix 20mg IV x 1. Nirtobid x 1. Principal Diagnosis chest pain Discharge Exam Constitutional: WD/WN, vitals as above + obese; no acute distress Eyes: + anicteric sclerae and PERRL ENMT: external ear and nose normal, oropharynx normal Neck: trachea midline, no thyromegaly Respiratory: normal respiratory effort, lungs clear to auscultation Auscultation: + diminished lung sounds Cardiovascular: Rate/Rhythm: regular rate and regular rhythm Vessels: no JVD Extremities: + edema (bilateral LE edema to rodriguez. Also with RUE edema - chronic s/p LN resection) Gastrointestinal (Abdomen): normal bowel sounds, soft, nontender, no hepatosplenomegaly Musculoskeletal: no cyanosis or clubbing, extremities motor strength 5/5 Skin: no rashes, warm and dry Neurologic: PERRL, EOMI, accommodation nl, no face palsy, no dysarthria Psychiatric: Orientation: alert and oriented x 3 Lymphatic: no cervical or axillary lymphadenopathy Discharge Data Allergies Allergy/AdvReac Type Severity Reaction Status Date / Time lisinopril AdvReac Mild COUGH Verified 05/22/20 10:13 oxycodone AdvReac Mild DIZZINESS Verified 05/22/20 10:13 Lightheaded Consultations 05/14/20 15:02 ED Decision to Admit Stat 05/14/20 18:22 Consult Cardiology Routine Consult Case Management - Discharge Planning Routine Hospital Course (1) Substernal chest pain: * Obs PCU cp r/o. EKG with ventricular pacing. BNP only 1173. Trop <0.015. CXR with mild stable cardiomegaly, no acute process. WBC 8.7k. Afebrile. * Serial troponin * Cardiology consult -- appreciate assistance. Pt follows with [facility] cardiology. Recent reported symptomatic bradycardia and had questioned upgrading to BiV pacer and f/u stress testing but had been deferred at that time. 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 * Evaluated by cardio, * patient is refusing further studies: does not want stress test. * Apppreciate input: * Chest pain. Resolved. Troponin levels negative. Patient declines stress testing. Imdur added to medication regimen. 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 Prolonged resting nausea without aerobic exertion,does not seem like this is an anginal equivalent. Will defer further nausea management to PCP if symptoms return. (2) Cough: * CXR negative for acute process. * Given 20mg IV lasix x 1 in ER --> no further cough on exam or during our conversation * Supplemental O2 as needed, although pt 97% on RA * Albuterol neb prn (3) Shortness of breath: * Suspect some level of deconditioning as patient lives with daughter and son-in-law and ambulates in her room but does have shortness of breath coming and going for a while now * See above under cough. No loss of taste/smell/pneumonia on imaging, lymphopenia, etc. (4) Heart disease: * Follows with [facility], Parminder Lowery. Recently evaluated by EP, Dr. Carlisle, for possible upgrade to BiV device * Cardiology consulted -- appreciate assistance * Last ECHO December 2019 with reported EF 35-39%, presumed to be non-ischemic due to RV pacing * Pacemaker interrogation * Continue home carvediolol 12.5mg BID, Losartan 100mg 100mg, simvastatin 20mg HS (5) Symptomatic bradycardia: * And was referred to EP as above (6) Benign hypertension: * Chronic. 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 (12) Malignant melanoma of skin: noted -- with LN resection -- with lymphedema LUE (13) Hyponatremia: Total Time Total Time Spent Total Time Spent (In Minutes): 32 Total Time Includes: Examination of the Patient, Discharge Planning and Medication Reconciliation Discharge Plan Discharge Items Patient Disposition: Home - Self-Care Reason For Visit: CHEST PAIN, SHORTNESS OF BREATH Discharge Diagnosis: chest pain Activity: Resume your previous activity Non-emergency contact: Primary Care Provider Call non-emergency contact if: you have any medication questions Follow-up/Referrals: Delia García CRNP [Primary Care Provider] - 05/22/20 10:30 am (You have a follow up appt on ThursdayMay 22 at 1030. It is important that you go to this appt. Please arrive 15 minutes prior to appt. Remember to bring your face mask with you. ) Diet: Heart Healthy Addtl Attending Provider Instructions: You were seen by cardiology. You refused a cardiac stress test. Your cardiac protein levels were normal. Your blood pressure medications were changed. Your diuretic was decreased and you are now placed on isosorbide mononitrate. Pending Studies at Discharge: No Stand-Alone Forms: My [facility], Smoking Cessation Medications and DC Order Prescriptions: New isosorbide mononitrate 30 mg Tablet Extended Release 24 Hr 30 mg PO QAM Qty: 30 RF: 0 hydrochlorothiazide 25 mg Tablet 12.5 mg PO QAM Qty: 15 RF: 0 Continued docusate sodium 100 mg capsule 100 mg PO BID RF: 0 losartan 100 mg tablet 100 mg PO DAILY Qty: 30 RF: 5 warfarin 5 mg tablet 2.5 mg PO 2XWK RF: 0 hydralazine 50 mg tablet 25 mg PO TID RF: 0 polyethylene glycol 3350 [Miralax] 17 gram/dose Powder 17 g PO BID RF: 0 cholecalciferol (vitamin D3) [Vitamin D3] 2,000 unit Tablet 2,000 unit PO QAM RF: 0 triamcinolone acetonide 0.1 % Cream 1 applic TOPICAL BID RF: 0 buspirone 5 mg tablet 5 mg PO BID RF: 0 carvedilol 12.5 mg tablet 12.5 mg PO BID RF: 0 potassium chloride 10 mEq tablet extended release 10 meq PO QDL RF: 0 amlodipine 5 mg tablet 5 mg PO QAM RF: 0 simvastatin 20 mg tablet 20 mg PO HS RF: 0 warfarin 5 mg tablet 5 mg PO 5XWK RF: 0 Discontinued hydrochlorothiazide 25 mg tablet 25 mg PO QAM RF: 0 No Action doxycycline monohydrate 100 mg capsule 100 mg PO BID Qty: 14 RF: 0 Discharge Orders: Discharge Order (Routine); Ordered 05/16/20 Ordered By: Tee Negrete Admission Data Admit Date/Time: 05/14/20 17:03 Attending Provider: Tee Negrete Admit Provider: Thien Arteaga Primary Care Provider: Delia García Other Providers: Thien Arteaga ; Sánchez Tse Other Interventions: Discharge Summary Assessment (RN) Last Done: 05/16/20 13:17 Coding Level of Care Code 38381 OBS Care - Discharge Diagnoses Substernal chest pain R07.2 Cough R05 Shortness of breath R06.02 Heart disease I51.9 Symptomatic bradycardia R00.1 Benign hypertension I10 Atrial fibrillation I48.91 detention current use of 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
== END 2020-05-16 14:10 | disposition home or self-care (01) ==
LOC: ED 11:19 → 2N 11:19 → SUATTDRO 17:03 → 2N 17:56

== ENCOUNTER 2021-03-25 10:34 | Inpatient (IN) ==
[2021-03-25 12:36] LABS: Appearance Urine Cloudy (Clear); Bacteria Urine Automated Negative (Negative); Bilirubin Urine Negative (Negative); Blood Urine Negative (Negative); Cast Urine Automated 0 /lpf (0-5); Color Urine Yellow; Epithelial Cell Urine Auto 20-30 /lpf (0-5); Glucose Urine UA Negative (Negative); Ketones Urine Negative (Negative); Leukocyte Esterase Urine 1+ (Negative); Nitrite Urine Negative (Negative); Protein Urine Negative (Negative); RBC Urine Automated 0-4 /hpf (0-4); Specific Gravity Urine 1.012 (1.000-1.030); Urobilinogen Urine Negative (Negative); pH Urine 7.5 (4.5-7.5)
--- NOTE | 2021-03-25 12:54 | XRay Report ---
XR chest 1V portable CLINICAL HISTORY: weakness COMPARISON STUDY: August 29, 2020 FINDINGS: No pneumothorax. No pleural effusion. Chronic reticular nodular prominence of pulmonary interstitium is again seen within bilateral lower l ungs. Hazy opacity within left retrocardiac region might represent atelectasis or infiltrate. Cardiomediastinal silhouette remains mildly enlarged. Aorta is calcified. No significant pulmonary vascular congestion.. Osseous structures: Osteopenia. Degenerative changes of the spine. Stable position of right sided single lead pacemaker with battery pack partially obscuring right lung parenchyma. IMPRESSION: 1. Hazy opacity within left retrocardiac region represent atelectasis or infiltrate. 2. Mild cardiomegaly. Atherosclerotic aorta. ACT 112: Negative or not required by law. The above report was generated using voice recognition software. It may contain grammatical, syntax o r spelling errors. Electronically signed by: Florida Rodriguez DO 03/25/2021 12:53 PM
--- NOTE | 2021-03-25 12:55 | CT Scan Report ---
CT head/brain wo con CLINICAL HISTORY: 85 years-old Female with Pt c/o weakness, dizziness. Acute weakness with dizziness TECHNIQUE: Multiple axial CT images of the head were obtained without contrast. A dose lowering tech nique was utilized adhering to the principles of ALARA. CT DOSE: 1035.81 mGycm COMPARISON: Head CT 08/29/2020 FINDINGS: No acute intracranial hemorrhage, midline shift, intracranial mass, hydrocephalus, territorial ischem ia or abnormal extra-axial collection. Age-related involutional changes. White matter hypodensities s uggestive of chronic microvascular ischemic disease. 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 Cerebral vascular calcifications. The calvarium is intact. Prior bilateral lens repair. The paranasal sinuses, mastoid air cells, and m iddle ear cavities are clear. IMPRESSION: No acute intracranial abnormality. ACT 112: Negative or not required by law. The above report was generated using voice recognition software. It may contain grammatical, syntax o r spelling errors. Electronically signed by: Raymundo Durham M.D. 03/25/2021 12:54 PM
[2021-03-25] MEDS ORDERED: amLODIPine BESYLATE 5 MG TAB PO ONE (13:08)
[2021-03-25] MEDS ORDERED: carvediloL 12.5 MG TAB PO ONE (13:08)
[2021-03-25 13:16] LABS: INR 2.2 (0.9-1.1); Prothrombin Time 21.4 Seconds (9.0-12.0)
[2021-03-25 13:31] LABS: Alanine Aminotransferase 16 U/L (12-78); Albumin Globulin Ratio 0.9 (0.9-2); Albumin Level 3.2 gm/dl (3.4-5.0); Alkaline Phosphatase 70 U/L (45-117); Aspartate Aminotransferase 13 U/L (15-37); BUN Creatinine Ratio 24.5 (10-20); Bilirubin,Total 0.7 mg/dl (0.2-1); Blood Urea Nitrogen 23 mg/dl (7-18); Calcium 8.8 mg/dl (8.5-10.1); Carbon Dioxide 27 mmol/L (21-32); Chloride 105 mmol/L (98-107); Creatine Kinase 30 U/L (26-192); Creatinine Clr Calc Pharmacy 52.5 ml/min; Globulin 3.6 gm/dl (2.5-4.0); Glucose 96 mg/dl (70-99); Potassium 4.1 mmol/L (3.5-5.1); Sodium 138 mmol/L (136-145); Total Protein 6.8 gm/dl (6.4-8.2); Troponin I < 0.015 ng/ml (0-0.045)
[2021-03-25 13:55] LABS: Basophils # (auto) 0.02 K/uL (0-0.2); Basophils % (auto) 0.3 %; Eosinophils # (auto) 0.06 K/uL (0-0.5); Eosinophils % (auto) 0.9 %; Hematocrit (blood only) 42.6 % (37-47); Hemoglobin 14.4 g/dL (12.0-16.0); Immature Granulocytes # (auto) 0.01 K/uL (0.00-0.02); Immature Granulocytes % (auto) 0.1 %; Lymphocytes % (auto) 15.9 %; Mean Corpuscular Hemoglobin 32.1 pg (25-34); Mean Corpuscular Hgb Conc 33.8 g/dL (32-36); Mean Corpuscular Volume 95.1 fL (80-100); Mean Platelet Volume 10.5 fL (7.4-10.4); Monocytes # (auto) 0.71 K/uL (0.11-0.59); Monocytes % (auto) 10.2 %; Neutrophils # (auto) 5.03 K/uL (1.4-6.5); Neutrophils % (auto) 72.6 %; Platelet Count 247 K/uL (130-400); RDW Coefficient of Variation 13.6 % (11.5-14.5); RDW Standard Deviation 47.4 fL (36.4-46.3); Red Blood Count 4.48 M/uL (4.2-5.4); White Blood Count 6.93 K/uL (4.8-10.8)
[2021-03-25] MEDS ORDERED: METOPROLOL TARTRATE 1 MG/ML VIAL IV PRN (14:30)
[2021-03-25] MEDS ORDERED: cefTRIAXone SODIUM 2,000 MG/70 ML BAG IV STA (14:30)
--- NOTE | 2021-03-25 15:03 | Electrocardiogram Report ---
Test Reason : Blood Pressure : / mmHG Vent. Rate : 071 BPM Atrial Rate : 072 BPM P-R Int : 000 ms QRS Dur : 204 ms QT Int : 450 ms P-R-T Axes : 000 -76 099 degrees QTc Int : 489 ms Poor data quality, interpretation may be adversely affected Ventricular-paced rhythm Abnormal ECG When compared with ECG of 29-AUG-2020 12:07, No significant change was found Confirmed by Chris Marrufo ([id number]) on 03/25/2021 3:03:20 PM Referred By: Confirmed By:Chris Marrufo
--- NOTE | 2021-03-25 15:50 | History & Physical Report ---
Date of Service March 25, 2021 Assessment & Plan (1) Weakness: Likely generalized deconditioning, suspect patient may have infection. UTI versus indolent pneumonia Will admit to a PCU due to hypertension Start Rocephin and Zithromax Sputum culture if able Urinalysis results noted, await urine culture PT/OT evaluation, typically ambulates with a walker If patient's respiratory status worsens or she spikes a temp, consider CT of the chest (2) Atrial fibrillation: Patient is rate controlled, on Coumadin chronically. Last INR is 2.2. Continue outpatient dosing, monitor while on antibiotics (3) Hypertension: Blood pressure significantly elevated on presentation continue amlodipine 5 mg daily, Coreg 12.5 BID, hydralazine 25 mg 3 times daily, hydrochlorothiazide 12.5 mg daily, and losartan 100 mg daily Consider IV labetalol if hypertension persists, pulse over 60 History of Present Illness Chief Complaint: Generalized weakness Primary Care Provider: CLEVE Molina This is an 85-year-old female with past medical history atrial fibrillation, hypertension, significant osteoarthritis who presents today with generalized weakness. Patient cannot provide much of a history and is very hard of hearing, her daughter is at bedside is able to give more history. The daughter tells me that the patient lives with her. She typically is able to do most things on her own and will ambulate around the house with a cane. Several days ago she started complaining that there was "something wrong with her "but did not seem to be much more specific. She seemed to be more weak and her appetite was somewhat diminished. The daughter thinks she was still drinking water. She was not clear about any sort of urinary discomfort or trouble breathing. However, the patient got to the point that she was essentially lying in her bed for the past 3 days, getting up only to go to the bathroom. She had very little p.o. intake. Daughter became concerned and brought her to the emergency room for further evaluation. In the ER, work-up revealed the patient had significant hypertension although this is improved with medication. Urinalysis was positive and there was concern about a possible left retrocardiac infiltrate on chest x-ray. Patient is now being mated for further work-up of possible infection along with her general deconditioning. Allergies Allergy/AdvReac Type Severity Reaction Status Date / Time lisinopril AdvReac Mild COUGH Verified 03/25/21 11:55 oxycodone AdvReac Mild DIZZINESS Verified 03/25/21 11:55 Lightheaded Home Medications Medication Instructions Recorded Confirmed Type docusate sodium 100 mg capsule 100 mg PO BID cap 03/15/19 03/25/21 History hydralazine 50 mg tablet 25 mg PO TID 04/19/19 03/25/21 History cholecalciferol (vitamin D3) 2,000 unit PO QAM 06/01/19 03/25/21 History [Vitamin D3] polyethylene glycol 3350 [Miralax] 17 g PO BID 06/01/19 03/25/21 History amlodipine 5 mg PO QAM 05/14/20 03/25/21 History carvedilol 12.5 mg PO BID 05/14/20 03/25/21 History potassium chloride 10 meq PO QDL 05/14/20 03/25/21 History triamcinolone acetonide 1 applic TOPICAL BID 05/14/20 03/25/21 History warfarin 5 mg PO .SEEPROTOCOL 05/14/20 03/25/21 History hydrochlorothiazide 12.5 mg PO QAM #15 tab 05/16/20 03/25/21 Rx hydrocodone-acetaminophen 0.5 tab PO Q6H PRN #8 tab 11/11/20 03/25/21 Rx losartan 100 mg PO QAM 11/11/20 03/25/21 History buspirone 5 mg tablet 5 mg PO BID #60 tab 11/26/20 03/25/21 Rx calcium carbonate [Calcium 600] 600 mg PO DAILY 03/25/21 03/25/21 History Past Med/Surg History Medical History (Updated 03/25/21 @ 15:58 by Ariel Beckham DO) Abdominal pain Abnormal vaginal bleeding Acute bronchitis Appetite loss Arthritis (04/17/13) Benign hypertension (04/17/13) Bloating Bronchitis (04/17/13) Change in bowel habits Constipation Cough Edema Encounter for preprocedural cardiovascular examination 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 Foot pain, right Hypokalemia Knee pain Left knee pain Leg pain, right Malignant melanoma of skin Nausea Neck pain Pain of left calf Periorbital hematoma of left eye Post-menopausal bleeding Severe hypertension Shortness of breath Shoulder pain, right Situational depression Thickened endometrium Toe joint pain Urinary tract infection, acute Urinary urgency Vaginal discharge Viral gastroenteritis Surgical History History of surgery on arm for malignant melanoma with LN resection Hx of hernia repair Hx of hysterectomy Family History Father Myocardial infarction Brother Myocardial infarction Other Family history non-contributory Denies family history of Ovarian cancer Prostate cancer Breast cancer Colorectal cancer Social History Smoking Status: Never smoker Hx Alcohol Use: No Hx Substance Use: No Preferred Language: Guatemalan Communication Ability: Effective Churn Operator Required: No Beliefs That Will Affect Care: None marital status: / Current Living Situation: Family Current Living Situation Comment: with daughter and son in law current occupational status: retired How many Children do You have: 2 Feels Safe at Home: Yes caffeine: No Dental Care, Regularly: No Physical Activity Frequency: Does not Exercise Seatbelt Use: always Sunscreen Use: No Assistive Devices: Walker Review of Systems Review of Systems: Unobtainable due to cognitive status Physical Exam Constitutional: no acute distress Mostly nonverbal, hard of hearing, will answer some questions Neck: trachea midline, no thyromegaly Respiratory: normal respiratory effort Auscultation: + diminished lung sounds; no crackles, no rales, no rhonchi and no wheezes Cardiovascular: Rate/Rhythm: regular rate and regular rhythm Heart Sounds: normal S1 and normal S2 Gastrointestinal (Abdomen): Inspection/Auscultation: abdomen normal to inspection Percussion/Palpation: abdomen soft; abdomen nontender, no guarding, abdomen not rigid and no hepatosplenomegaly Skin: no rashes, warm and dry Results & Data Results & Data ([facility]) Vital Signs (Past 12 Hours) Vital Signs Temp Pulse Resp BP Pulse Ox 03/25/21 14:40 70 13 91 03/25/21 14:31 70 17 176/82 H 95 03/25/21 14:30 70 15 94 03/25/21 14:20 70 21 95 03/25/21 14:10 70 13 93 03/25/21 14:01 70 20 186/90 H 95 03/25/21 14:00 70 21 03/25/21 13:50 70 14 91 03/25/21 13:40 70 14 92 03/25/21 13:32 70 14 91 03/25/21 13:31 70 15 172/74 H 94 03/25/21 13:30 70 15 93 03/25/21 13:20 70 15 90 03/25/21 13:10 70 16 93 03/25/21 13:00 70 16 95 03/25/21 12:58 70 14 183/93 H 96 03/25/21 12:57 70 15 183/93 H 96 03/25/21 12:30 70 16 96 03/25/21 12:20 70 17 95 03/25/21 12:10 76 24 94 03/25/21 12:03 94 03/25/21 12:00 73 21 186/88 H 94 03/25/21 11:50 70 16 93 03/25/21 11:40 70 15 94 03/25/21 11:30 70 15 169/76 H 93 03/25/21 11:20 70 15 92 03/25/21 11:10 70 15 94 03/25/21 11:00 70 14 172/81 H 91 03/25/21 10:50 70 17 94 03/25/21 10:48 70 17 93 03/25/21 10:45 36.5 C 83 20 181/98 H 94 03/25/21 10:38 70 19 181/98 H 92 Diagnostic Findings XR chest 1V portable CLINICAL HISTORY: weakness COMPARISON STUDY: August 29, 2020 FINDINGS: No pneumothorax. No pleural effusion. Chronic reticular nodular prominence of pulmonary interstitium is again seen within bilateral lower lungs. Hazy opacity within left retrocardiac region might represent atelectasis or infiltrate. Cardiomediastinal silhouette remains mildly enlarged. Aorta is calcified. No significant pulmonary vascular congestion.. Osseous structures: Osteopenia. Degenerative changes of the spine. Stable position of right sided single lead pacemaker with battery pack partially obscuring right lung parenchyma. IMPRESSION: 1. Hazy opacity within left retrocardiac region represent atelectasis or infiltrate. 2. Mild cardiomegaly. Atherosclerotic aorta. PG Care Time/CCT Total # of Minutes Spent Total Time Spent with Patient: Total time spent is greater than 50% in coordination of care (as documented) at patient's floor/unit and/or counseling patient: Coding Level of Care Code 04920 Initial Inpt Care Lvl 3 Diagnoses Weakness R53.1 Atrial fibrillation I48.91 Hypertension I10
[2021-03-25] MEDS ORDERED: HYDROCODONE/ACETAMOPHEN 5/325MG TAB PO PRN (18:07)
[2021-03-25] MEDS ORDERED: ONDANSETRON INJ 2 MG/ML 2 ML VIAL IV PRN (18:07)
[2021-03-25] MEDS: ACETAMINOPHEN 325 MG TAB PO PRN (18:27)
[2021-03-25] MEDS: SODIUM CHLORIDE 0.9% 1000ML 1,000 ML IV SCH (18:28)
[2021-03-25] MEDS: AZITHROMYCIN 500 MG in DEXTROSE 5% 250 ML IV SCH (20:10)
[2021-03-25] MEDS: WARFARIN SOD 5 MG TAB PO SCH (20:12)
[2021-03-25] MEDS: carvediloL 12.5 MG TAB PO SCH (20:13)
[2021-03-25] MEDS: busPIRone 5 MG TAB PO SCH (20:13)
[2021-03-25] MEDS: DOCUSATE SODIUM 100 MG CAP PO SCH (20:14)
[2021-03-25] MEDS: hydrALAZINE HCL 25 MG TAB PO SCH (20:15)
[2021-03-25] MEDS: POLYETHYLENE (MIRALAX) 17 GM PACK PO SCH (20:15)
[2021-03-25] MEDS: NYSTATIN CR 15 GM TUBE EXT SCH (20:25)
[2021-03-26 06:02] LABS: Basophils # (auto) 0.01 K/uL (0-0.2); Basophils % (auto) 0.2 %; Eosinophils # (auto) 0.07 K/uL (0-0.5); Eosinophils % (auto) 1.5 %; Hematocrit (blood only) 40.5 % (37-47); Hemoglobin 13.3 g/dL (12.0-16.0); Lymphocytes # (auto) 0.99 K/uL (1.2-3.4); Lymphocytes % (auto) 21.2 %; Mean Corpuscular Hemoglobin 31.4 pg (25-34); Mean Corpuscular Hgb Conc 32.8 g/dL (32-36); Mean Corpuscular Volume 95.5 fL (80-100); Mean Platelet Volume 10.1 fL (7.4-10.4); Monocytes # (auto) 0.71 K/uL (0.11-0.59); Monocytes % (auto) 15.2 %; Neutrophils # (auto) 2.89 K/uL (1.4-6.5); Neutrophils % (auto) 61.9 %; Platelet Count 192 K/uL (130-400); RDW Coefficient of Variation 13.6 % (11.5-14.5); RDW Standard Deviation 47.7 fL (36.4-46.3); Red Blood Count 4.24 M/uL (4.2-5.4); White Blood Count 4.67 K/uL (4.8-10.8)
[2021-03-26 06:08] LABS: INR 2.3 (0.9-1.1); Prothrombin Time 21.6 Seconds (9.0-12.0)
[2021-03-26 06:32] LABS: BUN Creatinine Ratio 25.5 (10-20); Calcium 8.3 mg/dl (8.5-10.1); Creatinine Clr Calc Pharmacy 58.1 ml/min; Est GFR (African American) 75.6 ml/min; Est GFR (Non-African American) 65.3 ml/min; Magnesium 2.2 mg/dl (1.8-2.4); Potassium 3.8 mmol/L (3.5-5.1)
[2021-03-26] MEDS: amLODIPine BESYLATE 5 MG TAB PO SCH (09:10)
[2021-03-26] MEDS: CALCIUM CARBONATE 1250MG TAB PO SCH (09:11)
[2021-03-26] MEDS: CHOLECALCIFEROL 1,000 UNITS 25 MCG TAB PO SCH (09:11)
[2021-03-26] MEDS: hydrALAZINE HCL 25 MG TAB PO SCH ×3 (09:11→20:37)
[2021-03-26] MEDS: DOCUSATE SODIUM 100 MG CAP PO SCH ×2 (09:11→20:30)
[2021-03-26] MEDS: busPIRone 5 MG TAB PO SCH ×2 (09:11→20:37)
[2021-03-26] MEDS: carvediloL 12.5 MG TAB PO SCH ×2 (09:12→20:37)
[2021-03-26] MEDS: hydroCHLOROthiazide 25 MG TAB PO SCH (09:12)
[2021-03-26] MEDS: LOSARTAN POTASSIUM 50 MG TAB PO SCH (09:12)
[2021-03-26] MEDS: POLYETHYLENE (MIRALAX) 17 GM PACK PO SCH ×2 (09:13→20:31)
[2021-03-26] MEDS: NYSTATIN CR 15 GM TUBE EXT SCH ×2 (09:14→21:37)
[2021-03-26] MEDS: SODIUM CHLORIDE 0.9% 1000ML 1,000 ML IV SCH ×3 (10:54→23:57)
[2021-03-26] MEDS: POTASSIUM CHLORIDE 10 MEQ TABCR PO SCH (12:34)
[2021-03-26] MEDS ORDERED: cefTRIAXone SODIUM 2,000 MG in DEXTROSE 5% 50 ML IV SCH (16:00)
[2021-03-26] MEDS: ACETAMINOPHEN 325 MG TAB PO PRN (16:08)
[2021-03-26] MEDS: WARFARIN SOD 5 MG TAB PO SCH (16:09)
[2021-03-26] MEDS: AZITHROMYCIN 500 MG in DEXTROSE 5% 250 ML IV SCH (18:08)
--- NOTE | 2021-03-26 21:26 | Hospitalist Progress Note ---
Date of Service March 26, 2021 Assessment & Plan (1) Tremor: resting, pill rolling tremor bilateral hands, better with movement shuffling gait, bradykinesia, flat facial expression did reasonably well with finger to nose, rapid alternating movement and no significant cogwheeling appreciated will consult neurology to get their opinion on possible Parkinsonian tremor consult PT/OT feel that this is her main issue, no obvious signs of infection, dehydration (2) Weakness: deconditioning, poor oral intake but could also have undiagnosed Parkinson's continue Rocephin and Zithromax for today but likely stop tomorrow after neurology consult PT/OT evaluation, typically ambulates with a walker (3) Atrial fibrillation: Patient is rate controlled, on Coumadin chronically. Last INR is 2.3. Continue outpatient dosing, monitor while on antibiotics (4) Hypertension: Blood pressure significantly elevated on presentation continue amlodipine 5 mg daily, Coreg 12.5 BID, hydralazine 25 mg 3 times daily, hydrochlorothiazide 12.5 mg daily, and losartan 100 mg daily BP much better today, normal Admission and Anticipated Discharge Date Admission Date: March 25, 2021 Subjective patient says she does not feel much better, still with weakness she does not have a fever, dyspnea, dysuria, cough, chest pain, nausea/vomiting or diarrhea her main issue has been ongoing tremors and difficulty ambulating, feeling weak she used to be able to sit and mckinley for hours at a time, but now with difficult time moving her hands in coordinated manner the tremors have been ongoing for a few months, maybe longer, getting worse she has not been to a neurologist (to her knowledge) and there are not notes from neurology in her chart she admits to bradykinesia, takes some time for her to get up out of a chair, walks slowly with a walker her face is blank and drawn down while speaking with her she gets very tearful while talking about it, she says she feels hopeless, like she cannot better discussed neurology consult with her, get their opinion about her symptoms discussed that I cannot be sure if she has Parkinson's but certainly she has some features assured her that the treatment would be Sinemet and could make a difference for her Review of Systems Review of Systems: All systems reviewed & are unremarkable except as noted in Subjective Physical Exam Constitutional: WD/WN, vitals as above + obese and + frail appearing; no acute distress Neck: trachea midline, no thyromegaly Respiratory: normal respiratory effort, lungs clear to auscultation Cardiovascular: RRR, no murmur, no edema Gastrointestinal (Abdomen): normal bowel sounds, soft, nontender, no hepatosplenomegaly Musculoskeletal: no cyanosis or clubbing, extremities motor strength 5/5 Skin: no rashes, warm and dry Neurologic: normal touch/pain/proprioception, CN's II-XI intact bilaterally and moves all extremities (no cogwheeling appreciated); no focal motor deficits Speech / Cognition: normal speech Motor/Sensory: + tremor (resting, pill rolling, got better reaching for cup and picking it up); no pronator drift Gait: + shuffling gait Coordination: normal rapid alternating movements Psychiatric: Orientation: alert and oriented x 3 Affect: + tearful affect Lymphatic: no cervical or axillary lymphadenopathy Results & Data Results & Data ([facility]) Vital Signs (Past 12 Hours) Vital Signs Temp Pulse Pulse Resp BP Pulse Ox 03/26/21 19:00 36.6 C 68 20 127/75 95 03/26/21 16:00 70 03/26/21 15:28 36.4 C L 70 16 118/87 96 03/26/21 11:02 36.5 C 72 20 106/69 95 Laboratory Results Laboratory Results - last 24 hr 03/26/21 03/26/21 03/26/21 05:37 05:37 05:37 WBC 4.67 L RBC 4.24 Hgb 13.3 Hct 40.5 MCV 95.5 MCH 31.4 MCHC 32.8 RDW Std Deviation 47.7 H RDW Coeff of Deep 13.6 Plt Count 192 MPV 10.1 Immature Gran % (Auto) 0.0 Neut % (Auto) 61.9 Lymph % (Auto) 21.2 [place] % (Auto) 15.2 Eos % (Auto) 1.5 Baso % (Auto) 0.2 Neut # (Auto) 2.89 Lymph # (Auto) 0.99 L [place] # (Auto) 0.71 H Eos # (Auto) 0.07 Baso # (Auto) 0.01 Immature Gran # (Auto) 0.00 PT 21.6 H INR 2.3 H Sodium 139 Potassium 3.8 Chloride 108 H Carbon Dioxide 28 Anion Gap 3.0 BUN 21 H Creatinine 0.82 Est Cr Clr Drug Dosing 58.1 Est GFR ( Amer) 75.6 Est GFR (Non-Af Amer) 65.3 BUN/Creatinine Ratio 25.5 H Glucose 80 Calcium 8.3 L Magnesium 2.2 Triglycerides 142 Cholesterol 197 LDL Cholesterol, Calc 119 VLDL Cholesterol, Calc 28 HDL Cholesterol 50 Cholesterol/HDL Ratio 4 Medications Administered Current Inpatient Medications Acetaminophen (Acetaminophen 325 Mg Tab) 650 mg PO Q4H PRN PRN Reason: pain/fever Stop: 04/24/21 18:06 Last Admin: 03/26/21 16:08 Dose: 650 mg Documented by: Hydrocodone Bitart/Acetaminophen (Hydrocodone/Acetamophen 5/325mg Tab) 0.5 tab PO Q6H PRN PRN Reason: pain Stop: 04/08/21 18:06 Amlodipine Besylate (Amlodipine Besylate 5 Mg Tab) 5 mg PO QAM [facility] Stop: 04/25/21 08:59 Last Admin: 03/26/21 09:10 Dose: 5 mg Documented by: Buspirone HCl (Buspirone 5 Mg Tab) 5 mg PO BID [facility] Stop: 04/24/21 20:59 Last Admin: 03/26/21 20:37 Dose: 5 mg Documented by: Calcium Carbonate (Calcium Carbonate 1250mg Tab) 1,250 mg PO DAILY [facility] Stop: 04/25/21 08:59 Last Admin: 03/26/21 09:11 Dose: 1,250 mg Documented by: Carvedilol (Carvedilol 12.5 Mg Tab) 12.5 mg PO BID [facility] Stop: 04/24/21 20:59 Last Admin: 03/26/21 20:37 Dose: 12.5 mg Documented by: Docusate Sodium (Docusate Sodium 100 Mg Cap) 100 mg PO BID [facility] Stop: 04/24/21 20:59 Last Admin: 03/26/21 20:30 Dose: Not Given Documented by: Hydralazine HCl (Hydralazine Hcl 25 Mg Tab) 25 mg PO TID [facility] Stop: 04/24/21 20:59 Last Admin: 03/26/21 20:37 Dose: 25 mg Documented by: Hydrochlorothiazide (Hydrochlorothiazide 25 Mg Tab) 12.5 mg PO QAM [facility] Stop: 04/25/21 08:59 Last Admin: 03/26/21 09:12 Dose: 12.5 mg Documented by: Sodium Chloride (Nss 1000ml) 1,000 mls @ 80 mls/hr IV .[id number] [facility] Stop: 04/24/21 18:29 Last Admin: 03/26/21 20:36 Dose: Not Given Documented by: Ceftriaxone Sodium 2,000 mg/ (Dextrose) 70 mls @ 140 mls/hr IV Q24H [facility]; Protocol Stop: 04/02/21 15:59 Last Infusion: 03/26/21 16:53 Dose: Infused Documented by: Azithromycin 500 mg/ Dextrose 255 mls @ 125 mls/hr IV Q24H [facility]; Protocol Stop: 04/01/21 18:59 Last Infusion: 03/26/21 20:59 Dose: Infused Documented by: Losartan Potassium (Losartan Potassium 50 Mg Tab) 100 mg PO QAM [facility] Stop: 04/25/21 08:59 Last Admin: 03/26/21 09:12 Dose: 100 mg Documented by: Metoprolol Tartrate (Metoprolol Tartrate 1 Mg/Ml Vial) 5 mg IV Q5M PRN PRN Reason: Tachycardia Stop: 04/24/21 14:29 Nystatin (Nystatin Cr 15 Gm Tube) 1 appln EXT BID [facility] Stop: 04/24/21 20:59 Last Admin: 03/26/21 09:14 Dose: 1 appln Documented by: Ondansetron HCl (Ondansetron Inj 2 Mg/Ml 2 Ml Vial) 4 mg IV Q6H PRN PRN Reason: Nausea Stop: 04/24/21 18:06 Polyethylene Glycol (Polyethylene (Miralax) 17 Gm Pack) 17 gm PO BID [facility] Stop: 04/24/21 20:59 Last Admin: 03/26/21 20:31 Dose: Not Given Documented by: Potassium Chloride (Potassium Chloride 10 Meq Tabcr) 10 meq PO QDL [facility] Stop: 04/25/21 11:29 Last Admin: 03/26/21 12:34 Dose: 10 meq Documented by: Vitamin D (Cholecalciferol 1,000 Units 25 Mcg Tab) 2,000 units PO QAM [facility] Stop: 04/25/21 08:59 Last Admin: 03/26/21 09:11 Dose: 2,000 units Documented by: Warfarin Sodium (Warfarin Sod 5 Mg Tab) 5 mg PO DAILY@1600 [facility] Stop: 04/24/21 18:29 Last Admin: 03/26/21 16:09 Dose: 5 mg Documented by: PG Care Time/CCT Total # of Minutes Spent Total Time Spent: 32 Total Time Spent with Patient: Total time spent is greater than 50% in coordination of care (as documented) at patient's floor/unit and/or counseling patient: Coding Level of Care Code 96440 Subseq Hosp Care Lvl 3 Diagnoses Tremor R25.1 Weakness R53.1 Atrial fibrillation I48.91 Hypertension I10
[2021-03-27 07:17] LABS: Hematocrit (blood only) 38.4 % (37-47); Hemoglobin 12.9 g/dL (12.0-16.0); Mean Corpuscular Hemoglobin 31.2 pg (25-34); Mean Corpuscular Hgb Conc 33.6 g/dL (32-36); Mean Platelet Volume 10.5 fL (7.4-10.4); Platelet Count 173 K/uL (130-400); RDW Coefficient of Variation 13.5 % (11.5-14.5); RDW Standard Deviation 45.9 fL (36.4-46.3); Red Blood Count 4.13 M/uL (4.2-5.4)
[2021-03-27] MEDS: hydroCHLOROthiazide 25 MG TAB PO SCH (07:27)
[2021-03-27] MEDS: carvediloL 12.5 MG TAB PO SCH ×2 (07:27→20:14)
[2021-03-27] MEDS: hydrALAZINE HCL 25 MG TAB PO SCH ×3 (07:27→20:13)
[2021-03-27] MEDS: LOSARTAN POTASSIUM 50 MG TAB PO SCH (07:27)
[2021-03-27] MEDS: busPIRone 5 MG TAB PO SCH ×2 (07:27→20:14)
[2021-03-27] MEDS: CALCIUM CARBONATE 1250MG TAB PO SCH (07:27)
[2021-03-27] MEDS: amLODIPine BESYLATE 5 MG TAB PO SCH (07:28)
[2021-03-27] MEDS: CHOLECALCIFEROL 1,000 UNITS 25 MCG TAB PO SCH (07:28)
[2021-03-27] MEDS: DOCUSATE SODIUM 100 MG CAP PO SCH ×2 (07:29→20:14)
[2021-03-27] MEDS: POLYETHYLENE (MIRALAX) 17 GM PACK PO SCH (07:29)
[2021-03-27] MEDS: NYSTATIN CR 15 GM TUBE EXT SCH ×2 (07:29→20:15)
[2021-03-27 07:33] LABS: BUN Creatinine Ratio 30.9 (10-20); Calcium 8.6 mg/dl (8.5-10.1); Creatinine Clr Calc Pharmacy 60.8 ml/min; Est GFR (African American) 80.3 ml/min; Est GFR (Non-African American) 69.3 ml/min; Magnesium 2.1 mg/dl (1.8-2.4); Potassium 4.1 mmol/L (3.5-5.1)
[2021-03-27 07:44] LABS: INR 3.2 (0.9-1.1); Prothrombin Time 29.8 Seconds (9.0-12.0)
--- NOTE | 2021-03-27 08:52 | Neurology Consultation ---
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 Her condition has been present for several years and now affects the right side as well, although to a lesser degree. I would recommend starting a trial of Sinemet, would start with 25/100 mg, 1/2 tablet taken 3 times per day, increase to 1 whole tablet taken 3 times per day after 1 week. I can see her for a follow-up appointment in clinic in 3 to 4 weeks. Thank you for the consult. History of Present Illness Reason for Consultation: Possible Parkinson's disease Requesting Physician: Adan Aguirre DO Attending Physician: Adan Aguirre DO History of Present Illness The patient is an 85-year-old female who was admitted to the [facility] 2 days ago for further evaluation and management of generalized weakness and hypertension. She has a history of atrial fibrillation, on warfarin. Patient lives with her daughter and has been exhibiting chronic, progressive difficulty with daily activities. She has not been eating well. Patient was seen by her PCP earlier this year, identified problems at that visit included compression of lumbar vertebra, tremor, situational depression, benign hypertension, and arthritis. The patient has been complaining of a left upper extremity tremor, present at worsen with action which began several years ago but has been getting progressively worse and eventually affecting the right hand as well, although to a milder degree. Her tremor has affected some activities such as sewing but has not impacted writing or using eating utensils. She is right-handed. Patient denies a family history of Parkinson's disease or essential tremor. History also notable for depression with anxiety, currently prescribed BuSpar. She is not taking an SSRI or SNRI. No history of exposure to neuroleptics. Patient did have a CT of the head completed 2 days ago which was negative for changes suggestive of NPH. The study does reveal chronic small vessel ischemic disease. A lumbar spine CT completed this past November had revealed an acute nondisplaced fracture involving the inferior endplate of L3 with 6 mm of retrolisthesis of L2 on L3 and 5 mm of retrolisthesis of L3 on 4 and 5 mm of anterolisthesis of L4 on 5 secondary to severe multilevel facet arthrosis. I reviewed the images as well as the radiologist's interpretation of these tests. Allergies Allergy/AdvReac Type Severity Reaction Status Date / Time lisinopril AdvReac Mild COUGH Verified 03/25/21 11:55 oxycodone AdvReac Mild DIZZINESS Verified 03/25/21 11:55 Lightheaded Home Medications Medication Instructions Recorded Confirmed Type docusate sodium 100 mg capsule 100 mg PO BID cap 03/15/19 03/25/21 History hydralazine 50 mg tablet 25 mg PO TID 04/19/19 03/25/21 History cholecalciferol (vitamin D3) 2,000 unit PO QAM 06/01/19 03/25/21 History [Vitamin D3] polyethylene glycol 3350 [Miralax] 17 g PO BID 06/01/19 03/25/21 History amlodipine 5 mg PO QAM 05/14/20 03/25/21 History carvedilol 12.5 mg PO BID 05/14/20 03/25/21 History potassium chloride 10 meq PO QDL 05/14/20 03/25/21 History triamcinolone acetonide 1 applic TOPICAL BID 05/14/20 03/25/21 History warfarin 5 mg PO .SEEPROTOCOL 05/14/20 03/25/21 History hydrochlorothiazide 12.5 mg PO QAM #15 tab 05/16/20 03/25/21 Rx hydrocodone-acetaminophen 0.5 tab PO Q6H PRN #8 tab 11/11/20 03/25/21 Rx losartan 100 mg PO QAM 11/11/20 03/25/21 History buspirone 5 mg tablet 5 mg PO BID #60 tab 11/26/20 03/25/21 Rx calcium carbonate [Calcium 600] 600 mg PO DAILY 03/25/21 03/25/21 History Patient History Medical History (Updated 03/27/21 @ 09:05 by Davie Alicia MD) Abdominal pain Abnormal vaginal bleeding Acute bronchitis Appetite loss Arthritis (04/17/13) Benign hypertension (04/17/13) Bloating Bronchitis (04/17/13) Change in bowel habits Constipation Cough Edema Encounter for preprocedural cardiovascular examination 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 Foot pain, right Hypokalemia Knee pain Left knee pain Leg pain, right Malignant melanoma of skin Nausea Neck pain Pain of left calf Periorbital hematoma of left eye Post-menopausal bleeding Severe hypertension Shortness of breath Shoulder pain, right Situational depression Thickened endometrium Toe joint pain Urinary tract infection, acute Urinary urgency Vaginal discharge Viral gastroenteritis Surgical History History of surgery on arm for malignant melanoma with LN resection Hx of hernia repair Hx of hysterectomy Family History Father Myocardial infarction Brother Myocardial infarction Other Family history non-contributory Denies family history of Ovarian cancer Prostate cancer Breast cancer Colorectal cancer Social History Smoking Status: Never smoker Hx Alcohol Use: No Hx Substance Use: No Preferred Language: Wolof Communication Ability: Effective Fitness Specialist Required: No Beliefs That Will Affect Care: None marital status: / Current Living Situation: Family Current Living Situation Comment: with daughter and son in law current occupational status: retired How many Children do You have: 2 Other Information That Helps Us Care for You: No Feels Safe at Home: Yes Safety Concerns: Feels Safe At This Time caffeine: No Dental Care, Regularly: No Physical Activity Frequency: Does not Exercise Seatbelt Use: always Sunscreen Use: No Assistive Devices: Denture - Upper, Denture - Lower and Walker Review of Systems Constitutional: no fever and no chills Eyes: no blind spots and no diplopia Ear, Nose, Mouth, Throat: + hearing loss Respiratory: no cough and no dyspnea Cardiovascular: no chest pain and no palpitations Gastrointestinal: no nausea and no vomiting Genitourinary: + urinary urgency Musculoskeletal: no myalgia Integumentary: no rash and no lesions Neurologic: as per Subjective / HPI, + gait abnormality and + tremor(s); no restless legs, no headache(s) and no memory loss Psychiatric: + depression and + anxiety Hematologic / Lymphatic: no easy bleeding and no easy bruising Exam (Neuro) Constitutional: well developed and well nourished; no acute distress Eyes: normal visual sam by confrontation, PERRL, normal accommodation and EOM intact bilaterally; no fundoscopic abnormality, no nystagmus and no papilledema Cardiovascular: Vessels: normal carotid upstroke; no carotid bruit Neurologic: Oriented to:: Person, Place and Time Memory: Short Term Intact and Remote Intact Attention: Span Intact and Concentration Intact Language: Naming Objects and Repeating Phrases Speech Fluency: negative Dysarthria Speech Aphasia: negative Aphasia Fund of Knowledge: Current Events, Past History and Vocabulary Cranial Nerves: Normal II (Visual sam full to confrontation, visual acuity normal), III, IV, (Pupils equal round re active to light and accommodation, eye movements normal), V (Facial sensation intact), VII (There is no facial droop or weakness), VIII (Hearing intact), IX, X (Palate elevates to midline), XI (Shoulder shrug intact) and XII (Tongue protrudes to midline) Motor Strength: negative Normal Lower Extremities, Normal Upper Extremities and Pronator Drift Motor Tone: Normal Lower Extremities and Normal Upper Extremities Rigidity: None Muscle Bulk/Involuntary Movements: Pill Rolling Tremor (Left greater than right) and Action Tremor; negative Muscle Atrophy Sensation: Light Touch Intact, Pain/Temperature Intact and Proprioception Intact; negative Vibration Intact Coordination: Normal and Limited Balance; negative Dysdiadochokinesia, Finger-N ose Abnormal and Heel-Prater Abnormal Deep Tendon Reflexes: Rt Triceps: 2+, Lt Triceps: 2+, Rt Biceps: 2+, Lt Biceps: 2+, Rt Brachioradialis: 2+, Lt Brachioradialis: 2+, Rt Patellar: 2+, Lt Patellar: 2+, Rt Ankle: 1+ and Lt Ankle: 1+ Special Tests: negative Babinski Present Gait: Stooped Results & Data ([facility]) Vital Signs (Past 12 Hours) Vital Signs Temp Pulse Pulse Resp BP Pulse Ox 03/27/21 07:25 36.3 C L 79 20 175/89 H 91 03/27/21 04:00 36.4 C L 70 18 163/78 H 96 03/27/21 00:04 36.4 C L 69 19 134/72 96 03/26/21 22:52 70 Laboratory Results WBC 4.80, hemoglobin 12.9, hematocrit 38.4, platelet count 173, sodium 139, potassium 4.1, BUN 24, creatinine 0.78, glucose 78, calcium 8.6, magnesium 2.1, AST 13, ALT 16, total CK 30, troponin less than 0.015, triglycerides 142, cholesterol 197, LDL 119, VLDL 28, HDL 50, TSH 2.[address] of the head and lumbar spine CT are as described in the history of present illness. I reviewed the images as well as the radiologist's interpretation of these tests. Electrocardiogram reveals a ventricular paced rhythm, 71 bpm. Coding Level of Care Code 69873 Initial Inpt Care Lvl 3 Diagnoses Parkinsons disease G20
[2021-03-27] MEDS ORDERED: CARBIDOPA/LEVODOPA 25/100MG TAB PO STA (10:27)
--- NOTE | 2021-03-27 10:40 | Hospitalist Progress Note ---
Date of Service March 27, 2021 Assessment & Plan (1) Tremor: resting, pill rolling tremor bilateral hands, better with movement shuffling gait, bradykinesia, flat facial expression did reasonably well with finger to nose, rapid alternating movement and no significant cogwheeling appreciated appreciate neurology consult, likely diagnosis is idiopathic, tremor predominant, left bhupendra-Parkinson's disease will start on Sinemet 25/100 0.5 tablet TID x one week then increase to 1 tablet TID follow up with neurology clinic in 3-4 weeks get PT/OT to see if she can go home or needs rehab will transfer to medical floor plan for discharge tomorrow either to home or to rehab if needed (2) Weakness: deconditioning, poor oral intake, undiagnosed Parkinson's disease stop Rocephin and Zithromax PT/OT evaluation, typically ambulates with a walker (3) Atrial fibrillation: Patient is rate controlled, on Coumadin chronically. Last INR is 3.4. Continue outpatient dosing, stop antibiotics (4) Hypertension: Blood pressure significantly elevated on presentation continue amlodipine 5 mg daily, Coreg 12.5 BID, hydralazine 25 mg 3 times daily, hydrochlorothiazide 12.5 mg daily, and losartan 100 mg daily BP slightly high prior to morning meds, will monitor Admission and Anticipated Discharge Date Admission Date: March 25, 2021 Subjective patient feeling about the same, very weak but she is optimistic after meeting with neurology, going to try Sinemet will move her to medical floor, labs are normal, no issues on monitor she is eating okay complained about having to move her bowels quickly this morning, did not make it to the toilet normally she has constipation, discussed that Parkinson's can cause slowing of the colon and constipation called her daughter to provide update Review of Systems Review of Systems: All systems reviewed & are unremarkable except as noted in Subjective Musculoskeletal: + muscle weakness Neurologic: + tremor(s) Physical Exam Constitutional: WD/WN, vitals as above + obese and + frail appearing; no acute distress Neck: trachea midline, no thyromegaly Respiratory: normal respiratory effort, lungs clear to auscultation Cardiovascular: RRR, no murmur, no edema Gastrointestinal (Abdomen): normal bowel sounds, soft, nontender, no hepatosplenomegaly Musculoskeletal: no cyanosis or clubbing, extremities motor strength 5/5 Skin: no rashes, warm and dry Neurologic: normal touch/pain/proprioception, CN's II-XI intact bilaterally and moves all extremities (no cogwheeling appreciated); no focal motor deficits Speech / Cognition: normal speech Motor/Sensory: + tremor (resting, pill rolling, got better reaching for cup and picking it up); no pronator drift Gait: + shuffling gait Coordination: normal rapid alternating movements Psychiatric: Orientation: alert and oriented x 3 Affect: + tearful affect Lymphatic: no cervical or axillary lymphadenopathy Results & Data Results & Data ([facility]) Vital Signs (Past 12 Hours) Vital Signs Temp Pulse Pulse Resp BP Pulse Ox 03/27/21 08:00 70 03/27/21 07:25 36.3 C L 79 20 175/89 H 91 03/27/21 04:00 36.4 C L 70 18 163/78 H 96 03/27/21 00:04 36.4 C L 69 19 134/72 96 03/26/21 22:52 70 Laboratory Results Laboratory Results - last 24 hr 03/27/21 03/27/21 03/27/21 06:53 06:53 06:53 WBC 4.80 RBC 4.13 L Hgb 12.9 Hct 38.4 MCV 93.0 MCH 31.2 MCHC 33.6 RDW Std Deviation 45.9 RDW Coeff of Deep 13.5 Plt Count 173 MPV 10.5 H PT 29.8 H INR 3.2 H Sodium 139 Potassium 4.1 Chloride 110 H Carbon Dioxide 25 Anion Gap 4.0 BUN 24 H Creatinine 0.78 Est Cr Clr Drug Dosing 60.8 Est GFR ( Amer) 80.3 Est GFR (Non-Af Amer) 69.3 BUN/Creatinine Ratio 30.9 H Glucose 78 Calcium 8.6 Magnesium 2.1 Specimen Hemolysis Medications Administered Current Inpatient Medications Acetaminophen (Acetaminophen 325 Mg Tab) 650 mg PO Q4H PRN PRN Reason: pain/fever Stop: 04/24/21 18:06 Last Admin: 03/26/21 16:08 Dose: 650 mg Documented by: Hydrocodone Bitart/Acetaminophen (Hydrocodone/Acetamophen 5/325mg Tab) 0.5 tab PO Q6H PRN PRN Reason: pain Stop: 04/08/21 18:06 Amlodipine Besylate (Amlodipine Besylate 5 Mg Tab) 5 mg PO QAM RENETTA Stop: 04/25/21 08:59 Last Admin: 03/27/21 07:28 Dose: 5 mg Documented by: Buspirone HCl (Buspirone 5 Mg Tab) 5 mg PO BID RENETTA Stop: 04/24/21 20:59 Last Admin: 03/27/21 07:27 Dose: 5 mg Documented by: Calcium Carbonate (Calcium Carbonate 1250mg Tab) 1,250 mg PO DAILY RENETTA Stop: 04/25/21 08:59 Last Admin: 03/27/21 07:27 Dose: 1,250 mg Documented by: Carbidopa/Levodopa (Carbidopa/Levodopa 25/100mg Tab) 0.5 tab PO TID RENETTA Stop: 04/26/21 13:59 Carvedilol (Carvedilol 12.5 Mg Tab) 12.5 mg PO BID RENETTA Stop: 04/24/21 20:59 Last Admin: 03/27/21 07:27 Dose: 12.5 mg Documented by: Docusate Sodium (Docusate Sodium 100 Mg Cap) 100 mg PO BID RENETTA Stop: 04/24/21 20:59 Last Admin: 03/27/21 07:29 Dose: 100 mg Documented by: Hydralazine HCl (Hydralazine Hcl 25 Mg Tab) 25 mg PO TID PENDING SALE TO [facility] Stop: 04/24/21 20:59 Last Admin: 03/27/21 07:27 Dose: 25 mg Documented by: Hydrochlorothiazide (Hydrochlorothiazide 25 Mg Tab) 12.5 mg PO QAM PENDING S[facility] TO [facility] Stop: 04/25/21 08:59 Last Admin: 03/27/21 07:27 Dose: 12.5 mg Documented by: Ceftriaxone Sodium 2,000 mg/ (Dextrose) 70 mls @ 140 mls/hr IV Q24H PENDING S[facility] TO [facility]; Protocol Stop: 04/02/21 15:59 Last Infusion: 03/26/21 16:53 Dose: Infused Documented by: Azithromycin 500 mg/ Dextrose 255 mls @ 125 mls/hr IV Q24H PENDING SALE TO [facility]; Protocol Stop: 04/01/21 18:59 Last Infusion: 03/26/21 20:59 Dose: Infused Documented by: Losartan Potassium (Losartan Potassium 50 Mg Tab) 100 mg PO QAM PENDING S[facility] TO [facility] Stop: 04/25/21 08:59 Last Admin: 03/27/21 07:27 Dose: 100 mg Documented by: Metoprolol Tartrate (Metoprolol Tartrate 1 Mg/Ml Vial) 5 mg IV Q5M PRN PRN Reason: Tachycardia Stop: 04/24/21 14:29 Nystatin (Nystatin Cr 15 Gm Tube) 1 appln EXT BID [facility] Stop: 04/24/21 20:59 Last Admin: 03/27/21 07:29 Dose: 1 appln Documented by: Ondansetron HCl (Ondansetron Inj 2 Mg/Ml 2 Ml Vial) 4 mg IV Q6H PRN PRN Reason: Nausea Stop: 04/24/21 18:06 Polyethylene Glycol (Polyethylene (Miralax) 17 Gm Pack) 17 gm PO BID [facility] Stop: 04/24/21 20:59 Last Admin: 03/27/21 07:29 Dose: Not Given Documented by: Potassium Chloride (Potassium Chloride 10 Meq Tabcr) 10 meq PO QDL [facility]END[facility] TO [facility] Stop: 04/25/21 11:29 Last Admin: 03/26/21 12:34 Dose: 10 meq Documented by: Vitamin D (Cholecalciferol 1,000 Units 25 Mcg Tab) 2,000 units PO QAM [facility]END[facility] TO [facility] Stop: 04/25/21 08:59 Last Admin: 03/27/21 07:28 Dose: 2,000 units Documented by: Warfarin Sodium (Warfarin Sod 5 Mg Tab) 5 mg PO DAILY@1600 PEND[facility] S[facility] TO [facility] Stop: 04/24/21 18:29 Last Admin: 03/26/21 16:09 Dose: 5 mg Documented by: PG Care Time/CCT Total # of Minutes Spent Total Time Spent with Patient: Total time spent is greater than 50% in coordination of care (as documented) at patient's floor/unit and/or counseling patient: Coding Level of Care Code 18495 Subseq Hosp Care Lvl 2 Diagnoses Tremor R25.1 Weakness R53.1 Atrial fibrillation I48.91 Hypertension I10
[2021-03-27] MEDS: POTASSIUM CHLORIDE 10 MEQ TABCR PO SCH (11:43)
[2021-03-27] MEDS: CARBIDOPA/LEVODOPA 25/100MG TAB PO SCH ×2 (14:26→20:12)
[2021-03-27] MEDS: WARFARIN SOD 5 MG TAB PO SCH (16:05)
[2021-03-28 07:34] LABS: INR 3.5 (0.9-1.1); Prothrombin Time 32.2 Seconds (9.0-12.0)
[2021-03-28] MEDS: carvediloL 12.5 MG TAB PO SCH (08:16)
[2021-03-28] MEDS: hydrALAZINE HCL 25 MG TAB PO SCH ×2 (08:16→13:50)
[2021-03-28] MEDS: busPIRone 5 MG TAB PO SCH (08:16)
[2021-03-28] MEDS: CARBIDOPA/LEVODOPA 25/100MG TAB PO SCH ×2 (08:17→13:50)
[2021-03-28] MEDS: hydroCHLOROthiazide 25 MG TAB PO SCH (08:18)
[2021-03-28] MEDS: CALCIUM CARBONATE 1250MG TAB PO SCH (08:18)
[2021-03-28] MEDS: LOSARTAN POTASSIUM 50 MG TAB PO SCH (08:19)
[2021-03-28] MEDS: amLODIPine BESYLATE 5 MG TAB PO SCH (08:19)
[2021-03-28] MEDS: DOCUSATE SODIUM 100 MG CAP PO SCH (08:19)
[2021-03-28] MEDS: CHOLECALCIFEROL 1,000 UNITS 25 MCG TAB PO SCH (08:19)
[2021-03-28] MEDS: NYSTATIN CR 15 GM TUBE EXT SCH (08:21)
[2021-03-28] MEDS: POTASSIUM CHLORIDE 10 MEQ TABCR PO SCH (11:10)
--- NOTE | 2021-03-28 14:30 | Discharge Summary ---
Date of Service March 28, 2021 Admission HPI Per Admitting Provider This is an 85-year-old female with past medical history atrial fibrillation, hypertension, significant osteoarthritis who presents today with generalized weakness. Patient cannot provide much of a history and is very hard of hearing, her daughter is at bedside is able to give more history. The daughter tells me that the patient lives with her. She typically is able to do most things on her own and will ambulate around the house with a cane. Several days ago she started complaining that there was "something wrong with her "but did not seem to be much more specific. She seemed to be more weak and her appetite was somewhat diminished. The daughter thinks she was still drinking water. She was not clear about any sort of urinary discomfort or trouble breathing. However, the patient got to the point that she was essentially lying in her bed for the past 3 days, getting up only to go to the bathroom. She had very little p.o. intake. Daughter became concerned and brought her to the emergency room for further evaluation. In the ER, work-up revealed the patient had significant hypertension although this is improved with medication. Urinalysis was positive and there was concern about a possible left retrocardiac infiltrate on chest x-ray. Patient is now being mated for further work-up of possible infection along with her general deconditioning. Principal Diagnosis Idiopathic Parkinson's disease Discharge Exam Constitutional WD/WN, vitals as above + obese and + frail appearing; no acute distress Neck trachea midline, no thyromegaly Respiratory normal respiratory effort, lungs clear to auscultation Cardiovascular RRR, no murmur, no edema Gastrointestinal (Abdomen) normal bowel sounds, soft, nontender, no hepatosplenomegaly Musculoskeletal no cyanosis or clubbing, extremities motor strength 5/5 Skin no rashes, warm and dry Neurologic normal touch/pain/proprioception, CN's II-XI intact bilaterally and moves all extremities (no cogwheeling appreciated); no focal motor deficits Speech / Cognition: normal speech Motor/Sensory: + tremor (resting, pill rolling, got better reaching for cup and picking it up); no pronator drift Gait: + shuffling gait Coordination: normal rapid alternating movements Psychiatric Orientation: alert and oriented x 3 Affect: + tearful affect Lymphatic no cervical or axillary lymphadenopathy Discharge Data Allergies Allergy/AdvReac Type Severity Reaction Status Date / Time lisinopril AdvReac Mild COUGH Verified 03/25/21 11:55 oxycodone AdvReac Mild DIZZINESS Verified 03/25/21 11:55 Lightheaded Consultations 03/25/21 14:30 ED Decision to Admit Stat 03/26/21 11:42 Consult Neurology Routine Ordered Studies 03/25/21 11:58 CT head/brain wo con Stat Hospital Course (1) Parkinsons disease: see below diagnosed this admission, follow up with Dr. Alicia in a few weeks will treat with Sinemet (2) Tremor: resting, pill rolling tremor bilateral hands, better with movement shuffling gait, bradykinesia, flat facial expression did reasonably well with finger to nose, rapid alternating movement and no significant cogwheeling appreciated appreciate neurology consult, likely diagnosis is idiopathic, tremor predominant, left bhupendra-Parkinson's disease will start on Sinemet 25/100 0.5 tablet TID x one week then increase to 1 tablet TID follow up with neurology clinic in 3-4 weeks get PT/OT - benefit from rehab, will go to [facility] (3) Weakness: deconditioning, poor oral intake, undiagnosed Parkinson's disease stop Rocephin and Zithromax PT/OT evaluation, typically ambulates with a walker (4) Atrial fibrillation: Patient is rate controlled, on Coumadin chronically. Last INR is 3.5. Continue outpatient dosing, stop antibiotics (5) Hypertension: Blood pressure significantly elevated on presentation continue amlodipine 5 mg daily, Coreg 12.5 BID, hydralazine 25 mg 3 times daily, hydrochlorothiazide 12.5 mg daily, and losartan 100 mg daily BP controlled when she has her medications Total Time Total Time Spent Total Time Spent (In Minutes): 32 Total Time Includes: Examination of the Patient, Discharge Planning, Medication Reconciliation and Other (spoke with her daughter over the phone) Discharge Plan Discharge Items Patient Disposition: Transfer Inpatient Rehab Fac Reason For Visit: WEAKNESS Discharge Diagnosis: Idiopathic Parkinson's disease Weakness and falls Condition on Discharge: Good Goals: improve strength and mobility follow up with neurology Activity: Resume your previous activity Weightbearing: Full weightbearing Non-emergency contact: Primary Care Provider Call non-emergency contact if: you have any medication questions and your sympt oms worsen Follow-up/Referrals: Delia García CRNP [Primary Care Provider] - (one week after discharge from rehab) Davie Alicia MD [Physician] - (3-4 weeks, follow up Parkinson's disease, on Sinemet) Diet: Heart Healthy Addtl Attending Provider Instructions: Medications: - SINEMET: started this admission by neurology for Parkinson's disease take 1/2 tablet three times a day fro 5 more days starting 04/03 go up to 1 tablet three times a day and continue on this dose until you see Dr. Alicia in office Weakness, falls, tremor likely due to idiopathic Parkinsons disease, diagnosed by neurology take Sinemet as prescribed above go to rehab to improve strength and balance no signs of infection or dehydration, thus no other reversible cause of the weakness Pending Studies at Discharge: No Stand-Alone Forms: My [facility] [address] Just [employer] It Skilled Items Patient informed of condition?: Yes DNR: Yes Discharge Level of Care: Acute rehab Communicable Disease: No Discharge Prognosis: Stable Lines: None Urinary Catheter: No Medications and DC Order Prescriptions: New carbidopa-levodopa [Sinemet] 25-100 mg Tablet 1 tab PO TID 30 Days Qty: 90 RF: 3 Continued buspirone 5 mg tablet 5 mg PO BID Qty: 60 RF: 11 docusate sodium 100 mg capsule 100 mg PO BID RF: 0 hydralazine 50 mg tablet 25 mg PO TID RF: 0 polyethylene glycol 3350 [Miralax] 17 gram/dose Powder 17 g PO BID RF: 0 cholecalciferol (vitamin D3) [Vitamin D3] 2,000 unit Tablet 2,000 unit PO QAM RF: 0 triamcinolone acetonide 0.1 % Cream 1 applic TOPICAL BID RF: 0 carvedilol 12.5 mg tablet 12.5 mg PO BID RF: 0 potassium chloride 10 mEq tablet extended release 10 meq PO QDL RF: 0 amlodipine 5 mg tablet 5 mg PO QAM RF: 0 warfarin 5 mg tablet 5 mg PO .SEEPROTOCOL RF: 0 hydrochlorothiazide 25 mg Tablet 12.5 mg PO QAM Qty: 15 RF: 0 losartan 100 mg tablet 100 mg PO QAM RF: 0 hydrocodone-acetaminophen 5-325 mg tablet 0.5 tab PO Q6H PRN (Reason: pain) Qty: 8 RF: 0 calcium carbonate [Calcium 600] 600 mg calcium (1,500 mg) Tablet 600 mg PO DAILY RF: 0 Discharge Orders: Discharge Order (Routine); Ordered 03/28/21 Ordered By: Adan Aguirre Admission Data Admit Date/Time: 03/25/21 16:04 Attending Provider: Adan Aguirre Admit Provider: Ariel Beckham Primary Care Provider: Delia García Other Providers: Ariel Beckham ; Davie Alicia ; [facility] Coding Level of Care Code D/C Day Management >30 mins Diagnoses Parkinsons disease G20 Tremor R25.1 Weakness R53.1 Atrial fibrillation I48.91 Hypertension I10
[2021-03-28] MEDS: WARFARIN SOD 5 MG TAB PO SCH (16:07)
--- NOTE | 2021-03-30 12:38 | Emergency Department Note ---
Impression & Plan Fatigue, Shortness of breath, Hyponatremia ED Provider Note NAME: RADHA SKINNER AGE: 85 SEX: F : 1935 ARRIVES VIA: Ambulance INFORMANT: Patient, EMS ED PROVIDER(S): Kevin Hoffman MD CHIEF COMPLAINT: weakness, has not been out of bed for three days HPI: This is an 85-year-old female who presents with the patient's daughter via EMS. The patient's daughter reports that patient has not been out of bed in 3 days. She has not taking any of her medications today. The patient herself reports that she has been dizzy and has been unable to get out of bed and feels very weak. She reports any exertion makes the weakness worse. Rest makes this better. She has not taken anything for the weakness prior to arriving in the emergency department. ROS: See above HPI for pertinent positives & negatives. A total of 10 systems reviewed and were otherwise negative. PAST MEDICAL HISTORY: See Below PAST SURGICAL HISTORY: See Below FAMILY HISTORY: See Below SOCIAL HISTORY: See Below HOME MEDICATIONS: See Below ALLERGIES: See Below VITALS: See Below PHYSICAL EXAMINATION: VITAL SIGNS - Vital signs and nursing notes were reviewed. GENERAL - 85-year-old female appearing stated age who is in no acute distress. Communicates well with provider and answers questions appropriately. SKIN - Without rashes. HEAD - NC/AT. EYES - PERRL with EOMI bilaterally. Sclera anicteric. Palpebral conjunctiva pink and moist with no injection noted. EARS - No deformities of external structures noted on gross examination bilaterally. NOSE - Midline and without cyanosis. No epistaxis or purulent drainage noted. Septum midline without deviation or septal hematoma noted. MOUTH/OROPHARYNX - Without perioral cyanosis. Buccal mucosa pink and moist and without leukoplakia. Tongue midline with equal elevation of palate bilaterally. No tonsillar hypertrophy, erythema, or exudates noted. NECK - Neck with FROM. Supple to palpation. No nuchal rigidity. LUNGS - Chest wall symmetric without accessory muscle use, intercostals retractions, or central cyanosis. Normal vesicular breath sounds CTA B/L. No wheezes, rales, or rhonchi appreciated. CARDIAC - RRR with S1/S2. No murmur, rubs, or gallops appreciated. ABDOMEN - Abdominal contour without pulsations or visible masses. BS normoact cynthia all four quadrants. No tenderness, palpable masses, hepatosplenomegaly, or ascites noted. EXTREMITIES - No clubbing or peripheral cyanosis. No pretibial edema present. +3/5 radial, posterior tibial, and dorsalis pedis pulses palpated throughout. +5/5 strength noted in UE/LE bilaterally. NEUROLOGIC - Cranial nerves II through XII grossly intact. Sensory intact to light touch throughout. Patellar reflexes +2/4. PSYCH - A&Ox3 and cooperates fully with examiner. Pt is very pleasant and interacts well with examiner. MEDICAL DECISION MAKING: Patient was seen and evaluated as above in room B4. Review was performed of nursing notes and vital signs. I did review pertinent previous visits and patient history. After obtaining a thorough history and physical examination the above work up was performed. This is an 85-year-old female who presents emergency department complaining of generalized weakness. The patient's chest x-ray is concerning for pneumonia. For this reason she was started on broad-spectrum antibiotics because the patient continues to be weak and ambulated very poorly I did discuss her case with the hospitalist service who did agree to admit the patient. Patient and family are in agreement with the treatment plan. An order was placed for continuous cardiac monitoring. The monitor shows a rate of 69 with Normal SInuse rhythm. The patient was evaluated during a period of high volume and high acuity during the global COVID-19 pandemic, and that diagnosis was suspected/considered upon their initial presentation. Their evaluation, treatment and testing was consistent with current guidelines for patients who present with complaints or symptoms that may be related to COVID-19. Patient was seen while provider was wearing PPE. Triage Nursing notes reviewed. Prior medical records reviewed Vital Signs: reviewed and remarkable for no significant abnormalities Differential diagnosis: Infection, dehydration, metabolic abnormality, hypo/hyperglycemia, electrolyte disturbance, anemia, hypoxia, cardiac sources, intracerebral event, toxicologic, neurologic, as well as other pathologies. ER treatment provided: See below Diagnostics interpreted by me: ECG: EKG shows a ventricular paced rhythm QTC is 49 ventricular rate is 71 EKG is compared to 08/29/2020 no significant changes found. Laboratory studies: As stated above and show below. 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 Foot pain, right Hypokalemia Knee pain Left knee pain Leg pain, right Malignant melanoma of skin Nausea Neck pain Pain of left calf Periorbital hematoma of left eye Post-menopausal bleeding Severe hypertension Shortness of breath Shoulder pain, right Situational depression Thickened endometrium Toe joint pain Urinary tract infection, acute Urinary urgency Vaginal discharge Viral gastroenteritis Surgical History History of surgery on arm for malignant melanoma with LN resection Hx of hernia repair Hx of hysterectomy Family History Father Myocardial infarction Brother Myocardial infarction Other Family history non-contributory Denies family history of Ovarian cancer Prostate cancer Breast cancer Colorectal cancer Social History Smoking Status: Never smoker Hx Alcohol Use: No Hx Substance Use: No Preferred Language: Finnish Communication Ability: Effective [place] Attorney Required: No Beliefs That Will Affect Care: None marital status: / Current Living Situation: Family Current Living Situation Comment: with daughter and son in law current occupational status: retired How many Children do You have: 2 Feels Safe at Home: Yes caffeine: No Dental Care, Regularly: No Physical Activity Frequency: Does not Exercise Seatbelt Use: always Sunscreen Use: No Assistive Devices: Walker Allergies Allergies Allergy/AdvReac Type Severity Reaction Status Date / Time lisinopril AdvReac Mild COUGH Verified 03/25/21 11:55 oxycodone AdvReac Mild DIZZINESS Verified 03/25/21 11:55 Lightheaded Home Meds Home Medications Medication Instructions Recorded Confirmed docusate sodium 100 mg capsule 100 mg PO BID cap 03/15/19 03/25/21 hydralazine 50 mg tablet 25 mg PO TID 04/19/19 03/25/21 cholecalciferol (vitamin D3) 2,000 unit PO QAM 06/01/19 03/25/21 [Vitamin D3] polyethylene glycol 3350 [Miralax] 17 g PO BID 06/01/19 03/25/21 amlodipine 5 mg PO QAM 05/14/20 03/25/21 carvedilol 12.5 mg PO BID 05/14/20 03/25/21 potassium chloride 10 meq PO QDL 05/14/20 03/25/21 triamcinolone acetonide 1 applic TOPICAL BID 05/14/20 03/25/21 warfarin 5 mg PO .SEEPROTOCOL 05/14/20 03/25/21 losartan 100 mg PO QAM 11/11/20 03/25/21 calcium carbonate [Calcium 600] 600 mg PO DAILY 03/25/21 03/25/21 Previous Rx's Medication Instructions Recorded hydrochlorothiazide 12.5 mg PO QAM #15 tab 05/16/20 hydrocodone-acetaminophen 0.5 tab PO Q6H PRN #8 tab 11/11/20 buspirone 5 mg tablet 5 mg PO BID #60 tab 11/26/20 carbidopa-levodopa [Sinemet] 1 tab PO TID 30 Days #90 tab 03/28/21 Results & Data (ED) Home Medications Current Medication List: was personally reviewed by me Laboratory Data Attestation: I reviewed the patient's lab results. Result diagrams: 03/27/21 06:53 03/27/21 06:53 Lab Results 03/25/21 03/25/21 03/25/21 Range/Units 12:04 12:20 12:20 WBC RBC Hgb Hct MCV MCH MCHC RDW Std Deviation RDW Coeff of Deep Plt Count MPV Immature Gran % (Auto) Neut % (Auto) Lymph % (Auto) [place] % (Auto) Eos % (Auto) Baso % (Auto) Neut # (Auto) Lymph # (Auto) [place] # (Auto) Eos # (Auto) Baso # (Auto) Immature Gran # (Auto) Absolute Nucleated RBC Nucleated RBC % (auto) Neutrophils % (Manual) Band Neutrophils % Lymphocytes % (Manual) Prolymphocyte % Reactive Lymphs % (Man) Monocytes % (Manual) Eosinophils % (Manual) Basophils % (Manual) Metamyelocytes % (Man) Myelocytes % (Man) Promyelocytes % (Man) Blast Cells % (Manual) Plasma Cell % (Manual) Other Cells % Nucleated RBC % Neutrophils # (Manual) Band Neutrophils # Total Absolute Neuts Lymphocytes # (Manual) Prolymphocyte # Reactive Lymphs # Total Abs Lymphocytes Monocytes # (Manual) Eosinophils # (Manual) Basophils # (Manual) Metamyelocytes # (Man) Myelocytes # (Manual) Promyelocytes # (Man) Blast Cells # (Man) Plasma Cell # (Manual) Other Cells # Nucleated RBCs # (Man) Hypersegmented Neuts Hyposegmented Neuts Hypogranular Neuts Large Granular Lymphs # Lrg Granular Lymphs Hairy Cells Smudge Cells Toxic Granulation Toxic Vacuolation Dohle Bodies Raissa Rods Platelet Estimate Hypogranular Platelets Clumped Platelets Giant Platelets Platelet Satelliting RBC Morphology Polychromasia Hypochromasia Poikilocytosis Basophilic Stippling Anisocytosis Microcytosis Macrocytosis Spherocytes Pappenheimer Bodies Sickle Cells Target Cells Tear Drop Cells Ovalocytes Stomatocytes Amezquita-Plevna Bodies Echinocytes Acanthocytes (Spur) Rouleaux RBC Agglutinates Schistocytes RBC Morph Comment Sezary Cell PT (9.0-12.0) Seconds INR (0.9-1.1) Sodium (136-145) mmol/L Potassium (3.5-5.1) mmol/L Chloride (98-107) mmol/L Carbon Dioxide (21-32) mmol/L Anion Gap (3-11) BUN (7-18) mg/dl Creatinine (0.6-1.2) mg/dl Est Cr Clr Drug Dosing ml/min Est GFR ( Amer) ml/min Est GFR (Non-Af Amer) ml/min BUN/Creatinine Ratio (10-20) Glucose (70-99) mg/dl Calcium (8.5-10.1) mg/dl Total Bilirubin (0.2-1) mg/dl AST (15-37) U/L ALT (12-78) U/L Alkaline Phosphatase (45-117) U/L Total Creatine Kinase (26-192) U/L Troponin I (0-0.045) ng/ml Total Protein (6.4-8.2) gm/dl Albumin (3.4-5.0) gm/dl Globulin (2.5-4.0) gm/dl Albumin/Globulin Ratio (0.9-2) TSH (0.300-4.500) uIu/ml Urine Color Yellow Urine Appearance Cloudy A (Clear) Urine pH 7.5 (4.5-7.5) Ur Specific [place] 1.012 (1.000-1.030) Urine Protein Negative (Negative) Urine Glucose (UA) Negative (Negative) Urine Ketones Negative (Negative) Urine Blood Negative (Negative) Urine Nitrite Negative (Negative) Urine Bilirubin Negative (Negative) Urine Urobilinogen Negative (Negative) Ur Leukocyte Esterase 1+ H (Negative) Urine WBC (Auto) 5-10 H (0-5) /hpf Urine RBC (Auto) 0-4 (0-4) /hpf U Hyaline Cast (Auto) 0 (0-5) /lpf U Epithel Cells (Auto) 20-30 H (0-5) /lpf Urine Bacteria (Auto) Negative (Negative) COVID-19 Eval Order Covid19 at [facility] SARS-CoV-2 (PCR) NEGATIVE (Negative) 03/25/21 03/25/21 03/25/21 Range/Units 12:48 12:48 12:48 WBC Cancelled RBC Cancelled Hgb Cancelled Hct Cancelled MCV Cancelled MCH Cancelled MCHC Cancelled RDW Std Deviation Cancelled RDW Coeff of Deep Cancelled Plt Count Cancelled MPV Cancelled Immature Gran % (Auto) Cancelled Neut % (Auto) Cancelled Lymph % (Auto) Cancelled [place] % (Auto) Cancelled Eos % (Auto) Cancelled Baso % (Auto) Cancelled Neut # (Auto) Cancelled Lymph # (Auto) Cancelled [place] # (Auto) Cancelled Eos # (Auto) Cancelled Baso # (Auto) Cancelled Immature Gran # (Auto) Cancelled Absolute Nucleated RBC Cancelled Nucleated RBC % (auto) Cancelled Neutrophils % (Manual) Cancelled Band Neutrophils % Cancelled Lymphocytes % (Manual) Cancelled Prolymphocyte % Cancelled Reactive Lymphs % (Man) Cancelled Monocytes % (Manual) Cancelled Eosinophils % (Manual) Cancelled Basophils % (Manual) Cancelled Metamyelocytes % (Man) Cancelled Myelocytes % (Man) Cancelled Promyelocytes % (Man) Cancelled Blast Cells % (Manual) Cancelled Plasma Cell % (Manual) Cancelled Other Cells % Cancelled Nucleated RBC % Cancelled Neutrophils # (Manual) Cancelled Band Neutrophils # Cancelled Total Absolute Neuts Cancelled Lymphocytes # (Manual) Cancelled Prolymphocyte # Cancelled Reactive Lymphs # Cancelled Total Abs Lymphocytes Cancelled Monocytes # (Manual) Cancelled Eosinophils # (Manual) Cancelled Basophils # (Manual) Cancelled Metamyelocytes # (Man) Cancelled Myelocytes # (Manual) Cancelled Promyelocytes # (Man) Cancelled Blast Cells # (Man) Cancelled Plasma Cell # (Manual) Cancelled Other Cells # Cancelled Nucleated RBCs # (Man) Cancelled Hypersegmented Neuts Cancelled Hyposegmented Neuts Cancelled Hypogranular Neuts Cancelled Large Granular Lymphs Cancelled # Lrg Granular Lymphs Cancelled Hairy Cells Cancelled Smudge Cells Cancelled Toxic Granulation Cancelled Toxic Vacuolation Cancelled Dohle Bodies Cancelled Raissa Rods Cancelled Platelet Estimate Cancelled Hypogranular Platelets Cancelled Clumped Platelets Cancelled Giant Platelets Cancelled Platelet Satelliting Cancelled RBC Morphology Cancelled Polychromasia Cancelled Hypochromasia Cancelled Poikilocytosis Cancelled Basophilic Stippling Cancelled Anisocytosis Cancelled Microcytosis Cancelled Macrocytosis Cancelled Spherocytes Cancelled Pappenheimer Bodies Cancelled Sickle Cells Cancelled Target Cells Cancelled Tear Drop Cells Cancelled Ovalocytes Cancelled Stomatocytes Cancelled Amezquita-[place] Bodies Cancelled Echinocytes Cancelled Acanthocytes (Spur) Cancelled Rouleaux Cancelled RBC Agglutinates Cancelled Schistocytes Cancelled RBC Morph Comment Cancelled Sezary Cell Cancelled PT 21.4 H (9.0-12.0) Seconds INR 2.2 H (0.9-1.1) Sodium 138 (136-145) mmol/L Potassium 4.1 (3.5-5.1) mmol/L Chloride 105 (98-107) mmol/L Carbon Dioxide 27 (21-32) mmol/L Anion Gap 6.0 (3-11) BUN 23 H (7-18) mg/dl Creatinine 0.93 (0.6-1.2) mg/dl Est Cr Clr Drug Dosing 52.5 ml/min Est GFR ( Amer) 65.0 ml/min Est GFR (Non-Af Amer) 56.0 ml/min BUN/Creatinine Ratio 24.5 H (10-20) Glucose 96 (70-99) mg/dl Calcium 8.8 (8.5-10.1) mg/dl Total Bilirubin 0.7 (0.2-1) mg/dl AST 13 L (15-37) U/L ALT 16 (12-78) U/L Alkaline Phosphatase 70 (45-117) U/L Total Creatine Kinase 30 (26-192) U/L Troponin I < 0.015 (0-0.045) ng/ml Total Protein 6.8 (6.4-8.2) gm/dl Albumin 3.2 L (3.4-5.0) gm/dl Globulin 3.6 (2.5-4.0) gm/dl Albumin/Globulin Ratio 0.9 (0.9-2) TSH 2.620 (0.300-4.500) uIu/ml Urine Color Urine Appearance (Clear) Urine pH (4.5-7.5) Ur Specific [place] (1.000-1.030) Urine Protein (Negative) Urine Glucose (UA) (Negative) Urine Ketones (Negative) Urine Blood (Negative) Urine Nitrite (Negative) Urine Bilirubin (Negative) Urine Urobilinogen (Negative) Ur Leukocyte Esterase (Negative) Urine WBC (Auto) (0-5) /hpf Urine RBC (Auto) (0-4) /hpf U Hyaline Cast (Auto) (0-5) /lpf U Epithel Cells (Auto) (0-5) /lpf Urine Bacteria (Auto) (Negative) COVID-19 Eval Order SARS-CoV-2 (PCR) (Negative) 03/25/21 Range/Units 12:48 WBC 6.93 RBC 4.48 Hgb 14.4 Hct 42.6 MCV 95.1 MCH 32.1 MCHC 33.8 RDW Std Deviation 47.4 H RDW Coeff of Deep 13.6 Plt Count 247 MPV 10.5 H Immature Gran % (Auto) 0.1 Neut % (Auto) 72.6 Lymph % (Auto) 15.9 [place] % (Auto) 10.2 Eos % (Auto) 0.9 Baso % (Auto) 0.3 Neut # (Auto) 5.03 Lymph # (Auto) 1.10 L [place] # (Auto) 0.71 H Eos # (Auto) 0.06 Baso # (Auto) 0.02 Immature Gran # (Auto) 0.01 Absolute Nucleated RBC Nucleated RBC % (auto) Neutrophils % (Manual) Band Neutrophils % Lymphocytes % (Manual) Prolymphocyte % Reactive Lymphs % (Man) Monocytes % (Manual) Eosinophils % (Manual) Basophils % (Manual) Metamyelocytes % (Man) Myelocytes % (Man) Promyelocytes % (Man) Blast Cells % (Manual) Plasma Cell % (Manual) Other Cells % Nucleated RBC % Neutrophils # (Manual) Band Neutrophils # Total Absolute Neuts Lymphocytes # (Manual) Prolymphocyte # Reactive Lymphs # Total Abs Lymphocytes Monocytes # (Manual) Eosinophils # (Manual) Basophils # (Manual) Metamyelocytes # (Man) Myelocytes # (Manual) Promyelocytes # (Man) Blast Cells # (Man) Plasma Cell # (Manual) Other Cells # Nucleated RBCs # (Man) Hypersegmented Neuts Hyposegmented Neuts Hypogranular Neuts Large Granular Lymphs # Lrg Granular Lymphs Hairy Cells Smudge Cells Toxic Granulation Toxic Vacuolation Dohle Bodies Raissa Rods Platelet Estimate Hypogranular Platelets Clumped Platelets Giant Platelets Platelet Satelliting RBC Morphology Polychromasia Hypochromasia Poikilocytosis Basophilic Stippling Anisocytosis Microcytosis Macrocytosis Spherocytes Pappenheimer Bodies Sickle Cells Target Cells Tear Drop Cells Ovalocytes Stomatocytes Amezquita-[place] Bodies Echinocytes Acanthocytes (Spur) Rouleaux RBC Agglutinates Schistocytes RBC Morph Comment Sezary Cell PT (9.0-12.0) Seconds INR (0.9-1.1) Sodium (136-145) mmol/L Potassium (3.5-5.1) mmol/L Chloride (98-107) mmol/L Carbon Dioxide (21-32) mmol/L Anion Gap (3-11) BUN (7-18) mg/dl Creatinine (0.6-1.2) mg/dl Est Cr Clr Drug Dosing ml/min Est GFR ( Amer) ml/min Est GFR (Non-Af Amer) ml/min BUN/Creatinine Ratio (10-20) Glucose (70-99) mg/dl Calcium (8.5-10.1) mg/dl Total Bilirubin (0.2-1) mg/dl AST (15-37) U/L ALT (12-78) U/L Alkaline Phosphatase (45-117) U/L Total Creatine Kinase (26-192) U/L Troponin I (0-0.045) ng/ml Total Protein (6.4-8.2) gm/dl Albumin (3.4-5.0) gm/dl Globulin (2.5-4.0) gm/dl Albumin/Globulin Ratio (0.9-2) TSH (0.300-4.500) uIu/ml Urine Color Urine Appearance (Clear) Urine pH (4.5-7.5) Ur Specific [place] (1.000-1.030) Urine Protein (Negative) Urine Glucose (UA) (Negative) Urine Ketones (Negative) Urine Blood (Negative) Urine Nitrite (Negative) Urine Bilirubin (Negative) Urine Urobilinogen (Negative) Ur Leukocyte Esterase (Negative) Urine WBC (Auto) (0-5) /hpf Urine RBC (Auto) (0-4) /hpf U Hyaline Cast (Auto) (0-5) /lpf U Epithel Cells (Auto) (0-5) /lpf Urine Bacteria (Auto) (Negative) COVID-19 Eval Order SARS-CoV-2 (PCR) (Negative) Administered Medications Discontinued Medications Acetaminophen (Acetaminophen 325 Mg Tab) 650 mg PO Q4H PRN PRN Reason: pain/fever Stop: 04/24/21 18:06 Last Admin: 03/26/21 16:08 Dose: 650 mg Documented by: [id number] Admin: 03/25/21 18:27 Dose: 650 mg Documented by: [id number] Amlodipine Besylate (Amlodipine Besylate 5 Mg Tab) 5 mg PO NOW ONE Stop: 03/25/21 13:09 Last Admin: 03/25/21 13:57 Dose: 5 mg Documented by: [id number] Amlodipine Besylate (Amlodipine Besylate 5 Mg Tab) 5 mg PO QAM [facility] Stop: 04/25/21 08:59 Last Admin: 03/28/21 08:19 Dose: 5 mg Documented by: [id number] Admin: 03/27/21 07:28 Dose: 5 mg Documented by: [id number] Admin: 03/26/21 09:10 Dose: 5 mg Documented by: [id number] Buspirone HCl (Buspirone 5 Mg Tab) 5 mg PO BID [facility] Stop: 04/24/21 20:59 Last Admin: 03/28/21 08:16 Dose: 5 mg Documented by: [id number] Admin: 03/27/21 20:14 Dose: 5 mg Documented by: [id number] Admin: 03/27/21 07:27 Dose: 5 mg Documented by: [id number] Admin: 03/26/21 20:37 Dose: 5 mg Documented by: [id number] Admin: 03/26/21 09:11 Dose: 5 mg Documented by: [id number] Admin: 03/25/21 20:13 Dose: 5 mg Documented by: [id number] Calcium Carbonate (Calcium Carbonate 1250mg Tab) 1,250 mg PO DAILY [facility] Stop: 04/25/21 08:59 Last Admin: 03/28/21 08:18 Dose: 1,250 mg Documented by: [id number] Admin: 03/27/21 07:27 Dose: 1,250 mg Documented by: [id number] Admin: 03/26/21 09:11 Dose: 1,250 mg Documented by: [id number] Carbidopa/Levodopa (Carbidopa/Levodopa 25/100mg Tab) 0.5 tab PO TID [facility] Stop: 04/26/21 13:59 Last Admin: 03/28/21 13:50 Dose: 0.5 tab Documented by: [id number] Admin: 03/28/21 08:17 Dose: 0.5 tab Documented by: [id number] Admin: 03/27/21 20:12 Dose: 0.5 tab Documented by: [id number] Admin: 03/27/21 14:26 Dose: 0.5 tab Documented by: [id number] Carbidopa/Levodopa (Carbidopa/Levodopa 25/100mg Tab) 0.5 tab PO NOW STA Stop: 03/27/21 10:28 Last Admin: 03/27/21 11:42 Dose: 0.5 tab Documented by: [id number] Carvedilol (Carvedilol 12.5 Mg Tab) 12.5 mg PO NOW ONE Stop: 03/25/21 13:09 Last Admin: 03/25/21 13:57 Dose: 12.5 mg Documented by: [id number] Carvedilol (Carvedilol 12.5 Mg Tab) 12.5 mg PO BID [facility] Stop: 04/24/21 20:59 Last Admin: 03/28/21 08:16 Dose: 12.5 mg Documented by: [id number] Admin: 03/27/21 20:14 Dose: 12.5 mg Documented by: [id number] Admin: 03/27/21 07:27 Dose: 12.5 mg Documented by: [id number] Admin: 03/26/21 20:37 Dose: 12.5 mg Documented by: [id number] Admin: 03/26/21 09:12 Dose: 12.5 mg Documented by: [id number] Admin: 03/25/21 20:13 Dose: 12.5 mg Documented by: [id number] Docusate Sodium (Docusate Sodium 100 Mg Cap) 100 mg PO BID [facility] Stop: 04/24/21 20:59 Last Admin: 03/28/21 08:19 Dose: 100 mg Documented by: [id number] Admin: 03/27/21 20:14 Dose: 100 mg Documented by: [id number] Admin: 03/27/21 07:29 Dose: 100 mg Documented by: [id number] Admin: 03/26/21 20:30 Dose: Not Given Documented by: [id number] Admin: 03/26/21 09:11 Dose: 100 mg Documented by: [id number] Admin: 03/25/21 20:14 Dose: 100 mg Documented by: [id number] Hydralazine HCl (Hydralazine Hcl 25 Mg Tab) 25 mg PO TID [facility] Stop: 04/24/21 20:59 Last Admin: 03/28/21 13:50 Dose: 25 mg Documented by: [id number] Admin: 03/28/21 08:16 Dose: 25 mg Documented by: [id number] Admin: 03/27/21 20:13 Dose: 25 mg Documented by: [id number] Admin: 03/27/21 14:26 Dose: 25 mg Documented by: [id number] Admin: 03/27/21 07:27 Dose: 25 mg Documented by: [id number] Admin: 03/26/21 20:37 Dose: 25 mg Documented by: [id number] Admin: 03/26/21 13:24 Dose: Not Given Documented by: [id number] Admin: 03/26/21 09:11 Dose: 25 mg Documented by: [id number] Admin: 03/25/21 20:15 Dose: 25 mg Documented by: [id number] Hydrochlorothiazide (Hydrochlorothiazide 25 Mg Tab) 12.5 mg PO QAM [facility] Stop: 04/25/21 08:59 Last Admin: 03/28/21 08:18 Dose: 12.5 mg Documented by: [id number] Admin: 03/27/21 07:27 Dose: 12.5 mg Documented by: [id number] Admin: 03/26/21 09:12 Dose: 12.5 mg Documented by: [id number] Ceftriaxone Sodium (Rocephin) 2,000 mg in 70 mls @ 140 mls/hr IV NOW STA Stop: 03/25/21 14:59 Last Infusion: 03/25/21 16:29 Dose: 0 mls/hr Documented by: [id number] Admin: 03/25/21 15:47 Dose: 140 mls/hr Documented by: [id number] Sodium Chloride (Nss 1000ml) 1,000 mls @ 80 mls/hr IV .[id number] [facility] Stop: 03/27/21 18:29 Last Infusion: 03/27/21 08:21 Dose: 0 mls/hr Documented by: [id number] Admin: 03/26/21 23:57 Dose: 80 mls/hr Documented by: [id number] Infusion: 03/26/21 23:24 Dose: 80 mls/hr Documented by: [id number] Admin: 03/26/21 20:36 Dose: Not Given Documented by: [id number] Admin: 03/26/21 10:54 Dose: 80 mls/hr Documented by: [id number] Infusion: 03/26/21 07:39 Dose: 0 mls/hr Documented by: [id number] Admin: 03/25/21 18:28 Dose: 80 mls/hr Documented by: [id number] Ceftriaxone Sodium 2,000 mg/ (Dextrose) 70 mls @ 140 mls/hr IV Q24H [facility]; Protocol Stop: 04/02/21 15:59 Last Infusion: 03/26/21 16:53 Dose: 0 mls/hr Documented by: [id number] Admin: 03/26/21 16:08 Dose: 140 mls/hr Documented by: [id number] Azithromycin 500 mg/ Dextrose 255 mls @ 125 mls/hr IV Q24H [facility]; Protocol Stop: 04/01/21 18:59 Last Infusion: 03/26/21 20:59 Dose: 0 mls/hr Documented by: [id number] Admin: 03/26/21 18:08 Dose: 125 mls/hr Documented by: [id number] Infusion: 03/25/21 22:21 Dose: 0 mls/hr Documented by: [id number] Admin: 03/25/21 20:10 Dose: 125 mls/hr Documented by: [id number] Losartan Potassium (Losartan Potassium 50 Mg Tab) 100 mg PO QAM [facility] Stop: 04/25/21 08:59 Last Admin: 03/28/21 08:19 Dose: 100 mg Documented by: [id number] Admin: 03/27/21 07:27 Dose: 100 mg Documented by: [id number] Admin: 03/26/21 09:12 Dose: 100 mg Documented by: [id number] Nystatin (Nystatin Cr 15 Gm Tube) 1 appln EXT BID [facility] Stop: 04/24/21 20:59 Last Admin: 03/28/21 08:21 Dose: 1 appln Documented by: [id number] Admin: 03/27/21 20:15 Dose: 1 appln Documented by: [id number] Admin: 03/27/21 07:29 Dose: 1 appln Documented by: [id number] Admin: 03/26/21 21:37 Dose: 1 appln Documented by: [id number] Admin: 03/26/21 09:14 Dose: 1 appln Documented by: [id number] Admin: 03/25/21 20:25 Dose: Not Given Documented by: [id number] Polyethylene Glycol (Polyethylene (Miralax) 17 Gm Pack) 17 gm PO BID [facility] Stop: 04/24/21 20:59 Last Admin: 03/27/21 07:29 Dose: Not Given Documented by: [id number] Admin: 03/26/21 20:31 Dose: Not Given Documented by: [id number] Admin: 03/26/21 09:13 Dose: 17 gm Documented by: [id number] Admin: 03/25/21 20:15 Dose: 17 gm Documented by: [id number] Potassium Chloride (Potassium Chloride 10 Meq Tabcr) 10 meq PO QDL [facility] Stop: 04/25/21 11:29 Last Admin: 03/28/21 11:10 Dose: 10 meq Documented by: [id number] Admin: 03/27/21 11:43 Dose: 10 meq Documented by: [id number] Admin: 03/26/21 12:34 Dose: 10 meq Documented by: [id number] Vitamin D (Cholecalciferol 1,000 Units 25 Mcg Tab) 2,000 units PO QAM RENETTA Stop: 04/25/21 08:59 Last Admin: 03/28/21 08:19 Dose: 2,000 units Documented by: [id number] Admin: 03/27/21 07:28 Dose: 2,000 units Documented by: [id number] Admin: 03/26/21 09:11 Dose: 2,000 units Documented by: [id number] Warfarin Sodium (Warfarin Sod 5 Mg Tab) 5 mg PO DAILY@1600 RENETTA Stop: 04/24/21 18:29 Last Admin: 03/28/21 16:07 Dose: 5 mg Documented by: [id number] Admin: 03/27/21 16:05 Dose: 5 mg Documented by: [id number] Admin: 03/26/21 16:09 Dose: 5 mg Documented by: [id number] Admin: 03/25/21 20:12 Dose: 5 mg Documented by: [id number] Imaging Data Radiologist's Impression: Chest X-Ray 03/25/21 11:56 XR chest 1V portable CLINICAL HISTORY: weakness COMPARISON STUDY: August 29, 2020 FINDINGS: No pneumothorax. No pleural effusion. Chronic reticular nodular prominence of pulmonary interstitium is again seen within bilateral lower lungs. Hazy opacity within left retrocardiac region might represent atelectasis or infiltrate. Cardiomediastinal silhouette remains mildly enlarged. Aorta is calcified. No significant pulmonary vascular congestion.. Osseous structures: Osteopenia. Degenerative changes of the spine. Stable position of right sided single lead pacemaker with battery pack partially obscuring right lung parenchyma. IMPRESSION: 1. Hazy opacity within left retrocardiac region represent atelectasis or infil trate. 2. Mild cardiomegaly. Atherosclerotic aorta. ACT 112: Negative or not required by law. The above report was generated using voice recognition software. It may contain grammatical, syntax or spelling errors. Electronically signed by: Florida Rodriguez DO 03/25/2021 12:[address] 03/25/21 11:58 CT head/brain wo con CLINICAL HISTORY: 85 years-old Female with Pt c/o weakness, dizziness. Acute weakness with dizziness TECHNIQUE: Multiple axial CT images of the head were obtained without contrast. A dose lowering technique was utilized adhering to the principles of ALARA. CT DOSE: 1035.81 mGycm COMPARISON: Head CT 08/29/2020 FINDINGS: No acute intracranial hemorrhage, midline shift, intracranial mass, hydrocephalus, territorial ischemia or abnormal extra-axial collection. Age- related involutional changes. White matter hypodensities suggestive of chronic microvascular ischemic disease. 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 Cerebral vascular calcifications. The calvarium is intact. Prior bilateral lens repair. The paranasal sinuses, mastoid air cells, and middle ear cavities are clear. IMPRESSION: No acute intracranial abnormality. ACT 112: Negative or not required by law. The above report was generated using voice recognition software. It may contain grammatical, syntax or spelling errors. Electronically signed by: Raymundo Durham M.D. 03/25/2021 12:54 PM Discharge Plan Visit Data Chief Complaint: Weakness Stated Complaint: WEAK, DIZZY, ED Provider: Kevin Hoffman Discharge Problem: Fatigue, Shortness of breath, Hyponatremia Patient Disposition: Admitted As Inpatient Condition: Good Discharge Instructions Interventions: ED Discharge Assessment Last Done: 03/25/21 17:13 Discharge Problem: Fatigue Qualifiers: Fatigue type: unspecified Qualified Code(s): R53.83 - Other fatigue
== END 2021-03-28 16:56 | DRG 57 ==
LOC: ED 10:34 → SUATTDRO 16:04 → 2S 16:04 → 3N 03-27 10:40